=== PATIENT | male | born 1940 | race Caucasian/White ===

== ENCOUNTER 2016-12-21 10:46 | Emergency (ER) | payer OTHER, BC ==
[~2016-12-21] VITALS: Ht 175.3 cm; Wt 107.0 kg
[~2016-12-21 10:46] MED LIST: ASPCH81 PO; ATOR10TA82 PO; CHOL100010 PO; FLUO20CA35 PO; GLUC10007 PO; LEVO50TA6 PO; MULT-190 PO; MULT-506 PO; NAPR1TAB9 PO; ZINC1TAB4 PO
[2016-12-21 10:54] VITALS: Ht 175.3 cm; Wt 107.0 kg
[2016-12-21] MEDS ORDERED: CHOL1000 PO (11:00)
[2016-12-21] MEDS ORDERED: ASPI81CH2 PO (11:00)
--- NOTE | 2016-12-21 11:43 | DIAGNOSTIC IMAGING REPORT ---
LEFT FOREARM 2 VIEWS CLINICAL HISTORY: Recent fall with left arm pain. FINDINGS: AP and lateral views of the left forearm are obtained. No prior studies are available for comparison at the time of dictation. The skeletal structures are osteopenic. No fracture is identified in the left forearm. The wrist and elbow joints are grossly maintained. Enthesophytes arise from the lateral humeral epicondyle. The overlying soft tissues are within normal limits. IMPRESSION: There is no radiographic evidence of left forearm fracture. Electronically signed by: Francisco J Yin M.D. 12/21/2016 11:42 AM Dictated Date/Time: 12/21/2016 11:38 AM
--- NOTE | 2016-12-21 11:44 | DIAGNOSTIC IMAGING REPORT ---
LEFT HUMERUS MIN 2 VIEWS ROUTINE CLINICAL HISTORY: Fall, left distal humerus and forearm pain COMPARISON: None FINDINGS: No acute fracture of the left humerus is identified. There is a possible nondisplaced fracture of the left radial neck. IMPRESSION: 1. No acute fracture of the left humerus. 2. Possible nondisplaced fracture of the left radial neck. Electronically signed by: Rick Cotto M.D. 12/21/2016 11:43 AM Dictated Date/Time: 12/21/2016 11:41 AM
--- NOTE | 2016-12-21 12:00 | EMERGENCY ROOM VISIT NOTE ---
History First contact with patient: 11:04 Chief Complaint: FALL Stated Complaint: LEFT ARM INJURY/PAIN History of Present Illness The patient is a 76 year old male who presents to the Emergency Room via private vehicle with complaints of "left arm injury/pain". The patient states that on , he was walking from outside into his garage, and was wearing transition lenses in the glasses did not transition fast enough and he fell over a elizabeth in the garage, striking his face and left arm. He did not lose consciousness. He notes that his left arm has continued to be sore from the fall. He points to the region of the left elbow as a location of pain that he rates as a 7/10. He denies any chest pain, shortness of breath, fevers, chills , numbness or tingling the left arm, heart history, other areas of pain at this time. Review of Systems A complete 6-point Review of Systems was discussed with the patient, with pertinent positives and negatives listed in the History of Present Illness. All remaining Review of Systems questions can be considered negative unless otherwise specified. Past Medical/Surgical History Medical Problems: (1) BPH (benign prostatic hypertrophy) (2) Calculus of kidney (3) Calculus of ureter (4) HTN (hypertension) Family History Diabetes, heart disease, cancer. Social History Smoking Status: Never Smoker Marital Status: Housing Status: lives with significant other Current/Historical Medications Scheduled Aspirin (Aspirin), 1 TAB PO DAILY Atorvastatin (Lipitor), 10 MG PO HS Cholecalciferol (Vitamin D3), 1 TAB PO DAILY Fluoxetine (Prozac), 20 MG PO HS Glucosamine Sulfate (Glucosamine), 1,000 MG PO QAM Levothyroxine Sodium (Levothyroxine Sodium), 50 MCG PO DAILY Multivitamin (Multivitamin), 1 TAB PO QAM Ocuvite Preservision (Ocuvite Preservision), 1 TAB PO BID Zinc Gluconate (Zinc), 1 TAB PO DAILY Scheduled PRN Naproxen (Aleve), 440 MG PO BID PRN for Pain Allergies Coded Allergies: No Known Allergies (Verified , None, 12/21/16) Physical Exam Vital Signs Date Time Temp Pulse Resp B/P Pulse Ox O2 Delivery O2 Flow Rate FiO2 12/21/16 12:17 36.5 90 20 120/68 96 12/21/16 10:54 36.5 90 20 120/68 96 Room Air Physical Exam VITAL SIGNS - Vital signs and nursing notes were reviewed. He is afebrile, normotensive, non-tachycardic and is saturating well on room air 96%. GENERAL -76-year-old male appearing his stated age who is in no acute distress. Communicates well with provider and answers questions appropriately. SKIN - Without rashes. No breaks in the integument. No ecchymosis. HEAD - NC/AT. EYES - PERRL with EOMI bilaterally. Sclera anicteric. Palpebral conjunctiva pink and moist with no injection noted. EARS - No deformities of external structures noted on gross examination bilaterally. NOSE - Midline and without cyanosis. No epistaxis or purulent drainage noted. MOUTH/OROPHARYNX - Without perioral cyanosis. Buccal mucosa pink and moist and without leukoplakia. NECK - Neck with FROM. Supple to palpation. No C-spine tenderness. No paraspinous musculature tenderness. LUNGS - Chest wall symmetric without accessory muscle use, intercostals retractions, or central cyanosis. Normal vesicular breath sounds CTA B/L. No wheezes, rales, or rhonchi appreciated. CARDIAC - RRR with S1/S2. No murmur, rubs, or gallops appreciated. EXTREMITIES - No clubbing or peripheral cyanosis. No pretibial edema present. He is neurovascularly intact left upper extremity. There is tenderness to palpation overlying the lateral distal humerus, as well as the proximal radius. No wrist tenderness or hand tenderness. There is full cardroom attendant strength. +5/5 strength noted in UE/LE bilaterally. NEUROLOGIC - Cranial nerves II through XII grossly intact. Sensory intact to light touch throughout. PSYCH - Pt is very pleasant and interacts well with examiner. Medical Decision & Procedures ER Provider Diagnostic Interpretation: LEFT FOREARM 2 VIEWS CLINICAL HISTORY: Recent fall with left arm pain. FINDINGS: AP and lateral views of the left forearm are obtained. No prior studies are available for comparison at the time of dictation. The skeletal structures are osteopenic. No fracture is identified in the left forearm. The wrist and elbow joints are grossly maintained. Enthesophytes arise from the lateral humeral epicondyle. The overlying soft tissues are within normal limits. IMPRESSION: There is no radiographic evidence of left forearm fracture. Electronically signed by: Francisco J Yin M.D. 12/21/2016 11:42 AM Dictated Date/Time: 12/21/2016 11:38 AM LEFT HUMERUS MIN 2 VIEWS ROUTINE CLINICAL HISTORY: Fall, left distal humerus and forearm pain COMPARISON: None FINDINGS: No acute fracture of the left humerus is identified. There is a possible nondisplaced fracture of the left radial neck. IMPRESSION: 1. No acute fracture of the left humerus. 2. Possible nondisplaced fracture of the left radial neck. Electronically signed by: Rick Cotto M.D. 12/21/2016 11:43 AM Dictated Date/Time: 12/21/2016 11:41 AM Medical Decision Patient was seen and evaluated as above. After obtaining a thorough history and physical examination radiographs were obtained, he declined pain medication and EKG was also obtained as the patient has left arm pain, that was not severely apparent upon examination. He does not have any cardiac history of which he stated. EKG reveals normal sinus rhythm, no ectopy or ischemic change. No evidence of PA. Radiograph was obtained of the humerus and forearm. Forearm was unremarkable, but the humerus did reveal a proximal, radial neck fracture. This is clinically correlated with the patient's area of tenderness on examination. The case was reviewed with my attending, and she also evaluated the patient. At this time and he believes it appropriate to place the patient in an Ortho-Glass sugar tong, as well as sling for support. Patient tolerated this very well. He is neurovascularly intact. He is a follow -up with his establish orthopedic surgeon by calling their office later today. He declined any pain medication. He was instructed upon management of today's findings. He was educated upon worrisome symptoms which to return, had questions prior to discharge and was discharged home in good condition. IMPRESSION: In the evaluation and treatment of this patient, the following differential diagnoses were considered: Forearm Contusion, Radial Head Fracture , Radial Styloid Process Fracture, Ulnar Styloid Process Fracture, Radius Fracture, Ulnar Fracture, Tennis Elbow, Golfer's Elbow, or Elbow Fracture. Impression Primary Impression: Fracture of radial neck, left, closed Departure Information Dispostion Home / Self-Care Condition GOOD Referrals Parviz Westfall M.D. (PCP) Colby Veras D.O. Patient Instructions My [facility] Additional Instructions You have been treated in the Emergency Department for a left radial neck fracture. For pain control, you can use the following [id number] medicines (if >12 yo): - Regular strength (325mg/tab) Tylenol (acetaminophen) 2 tabs every 4-6 hours as needed. Do not exceed 12 tablets in a 24 hour period. Avoid taking more than 3 grams (3000 mg) of Tylenol per day. This includes any other sources of acetaminophen you may take on a regular basis. - Regular strength (200 mg/tab) Advil (ibuprofen) 1-2 tabs every 4-6 hours as needed. Do not exceed a dose of 3200 mg per day. If this is a recent injury (<24 hrs), ice can be applied to the area of pain for the first 3 days to help decrease pain and inflammation. You have been provided the number for an Orthopaedic Surgeon. You should call this number as soon as possible to establish a follow-up visit from today's Emergency Department visit. Keep the sling/splint in place until evaluated by Orthopedics. Please remember to remove the arm from the sling periodically to exercise the left shoulder. Return to the Emergency Department if your current symptoms worsen despite treatment course outlined above, or if you develop any of the following symptoms : intractable pain despite aforementioned treatment course or new onset of numbness or tingling of the arm. Please return to the emergency department with any new/concerning symptoms.
--- NOTE | 2016-12-21 12:07 | EMERGENCY ROOM VISIT NOTE ---
ED Visit Note First contact with patient: 11:04 I saw this patient in conjunction with John Orozco PA-C. I agree with his decision-making and treatment plan.
[2016-12-21 12:17] VITALS: BP 120/68; PULSE 90; TEMP 36.5; O2SAT 96
[2017-05-21] MEDS ORDERED: MULT-506 PO (10:46)
[2017-05-25] MEDS ORDERED: GLC/500 PO (06:30)
[2017-05-25] MEDS ORDERED: SULF800T23 PO (08:33)
== END 2016-12-21 12:18 | disposition home or self-care (01) ==
LOC: C.EDB 10:48 → C.EDD 12:18
DX: S42.202A Unspecified fracture of upper end of left humerus, initial encounter for closed fracture (principal); W18.09XA Striking against other object with subsequent fall, initial encounter; N40.0 Benign prostatic hyperplasia without lower urinary tract symptoms; I10 Essential (primary) hypertension; Z83.3 Family history of diabetes mellitus; Z82.49 Family history of ischemic heart disease and other diseases of the circulatory system; Z79.82 Long term (current) use of aspirin

== ENCOUNTER 2017-01-11 09:39 | Observation (INO) | payer OTHER, BC ==
[~2017-01-11] VITALS: Ht 175.3 cm; Wt 103.2 kg
[2017-01-11] VITALS (7 sets, daily range): BP systolic 107–126; BP diastolic 63–82; PULSE 72–82; TEMP 36.8–37.1; O2SAT 93–96; Ht 175.3 cm; Wt 103.2 kg
[~2017-01-11 09:39] MED LIST changes: -ASPCH81 PO; +ASPI81CH2 PO; +CHOL1000 PO; -CHOL100010 PO
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
[2017-01-11] MEDS ORDERED: SODIUM CHLORIDE 0.9% 1000ML 1,000 ML IV STA (10:15)
[2017-01-11] MEDS ORDERED: OPTIRAY 320 IV PRN (10:45)
[2017-01-11] MEDS ORDERED: MoRPHine SULFATE 4 MG/ML 1 ML CARP\\VIAL ONE (11:21)
[2017-01-11] MEDS ORDERED: ONDANSETRON INJ 2 MG/ML 2 ML VIAL ONE ×2 (11:22→13:59)
[2017-01-11] MEDS ORDERED: ONDANSETRON INJ 2 MG/ML 2 ML VIAL IV STA (11:22)
[2017-01-11] MEDS ORDERED: MoRPHine SULFATE 4 MG/ML 1 ML CARP\\VIAL IV STA (11:22)
[2017-01-11 11:28] LABS: BASO % 0.1 %; BASO ABS # 0.02 K/uL (0-0.2); COMPLETE YES; EOS % 0.1 %; HEMATOCRIT 45.6 % (42-52); IG% 0.3 %; LYMPH % 11.1 %; LYMPH ABS # 1.77 K/uL (1.2-3.4); MEAN CELL VOLUME 90.5 fL (80-100); MEAN CORPUSCULAR HEMOGLOBIN 32.1 pg (25-34); MEAN CORPUSCULAR HGB CONC 35.5 g/dl (32-36); MEAN PLATELET VOLUME 8.8 fL (7.4-10.4); MONO % 8.8 %; NEUT % 79.6 %; PLATELET COUNT 328 K/uL (130-400); RED BLOOD COUNT 5.04 M/uL (4.7-6.1); WHITE BLOOD COUNT 15.92 K/uL (4.8-10.8)
[2017-01-11 11:31] LABS: ISTAT CREATININE 0.8 mg/dl (0.6-1.3); ISTAT HEMOGLOBIN 17.3 g/dl (14.0-18.0); ISTAT IONIZED CALCIUM 1.16 mmol/l (1.12-1.32)
[2017-01-11 11:45] LABS: BUN/CREATININE RATIO 13.4 (10-20); CALCIUM 8.8 mg/dl (8.5-10.1); CREATININE 0.97 mg/dl (0.60-1.40); POTASSIUM 4.2 mmol/L (3.5-5.1)
--- NOTE | 2017-01-11 12:41 | DIAGNOSTIC IMAGING REPORT ---
PELVIS CT WITH IV CONTRAST CT DOSE: 714.03 mGycm HISTORY: Rectal pain. Cellulitis. TECHNIQUE: Multiaxial CT images of the pelvis were performed following the use of intravenous contrast. COMPARISON STUDY: Abdomen and pelvis CT 03/15/2013. FINDINGS: Skin thickening with subcutaneous edema/fat stranding within the right gluteal region. There is a large predominantly right posterior perirectal abscess containing gas and fluid. A small component of this extends to the left perirectal space. There is also a small component demonstrating right-sided supralevator extension. The supra levator component measures approximately 2 cm. Total size of the abscess is approximately 9 x 7 x 6 cm. Mild thickening of the distal rectum. Mild perirectal fat stranding and trace presacral edema. Colonic diverticulosis. Partially visualized 1.9 cm hypodense lesion within the lower pole the left kidney. This favors a cyst. Prior right inguinal hernia repair. The bladder is unremarkable. The prostate gland is mildly enlarged. No significant pelvic lymphadenopathy. IMPRESSION: A large 9 x 7 x 6 cm predominately right posterior perirectal abscess as described above containing a small supralevator component. Electronically signed by: Darius Quinones M.D. 01/11/2017 12:40 PM Dictated Date/Time: 01/11/2017 12:34 PM
[2017-01-11] MEDS ORDERED: VANCOMYCIN INJ 1,000 MG in SODIUM CHLORIDE 0.9% 250ML 250 ML IV STA (13:07)
[2017-01-11] MEDS ORDERED: PIPERACILLIN/TAZOBACTAM 3.375 GM/100ML D5W IV STA (13:07)
[2017-01-11] MEDS ORDERED: LEVAQUIN 750MG / 150ML D5W IV ONE (13:15)
[2017-01-11] MEDS ORDERED: HYDROmorphone INJ 1 MG/ML SYR IV STA (13:24)
[2017-01-11] MEDS ORDERED: PIPERACILL/TAZOBAC IV 3.375 GM in DEXTROSE 5% 100ML IV ONE (13:30)
[2017-01-11] MEDS ORDERED: CLINDAMYCIN IV 900 MG in DEXTROSE 5% ADD-VANTAGE 100ML 100 ML IV ONE (13:45)
--- NOTE | 2017-01-11 13:51 | History and Physical ---
History & Physical Date & Time of Service: Jan 11, 2017 at 13:44 Chief Complaint: Rectal Pain Primary Care Physician: Parviz Westfall M.D. History of Present Illness 76 y/o male with right buttock pain and a lump began 3 days ago and gotten larger. No fevers or chills. Had perirectal abscess 3 years ago that was misdiagnosed and ended up with extensive debridement for necrotizing fasciitis. Past Medical/Surgical History Medical Problems: (1) BPH (benign prostatic hypertrophy) Status: Chronic (2) Calculus of kidney Status: Resolved (3) Calculus of ureter Status: Resolved (4) HTN (hypertension) Status: Chronic Surgical history: necrotizing fascitis knee scope eye surgery colostomy and reversal for perforation Family History Patient reports no known family medical history. 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[employer]) Allergies Coded Allergies: No Known Allergies (Verified , None, 12/21/16) Home Medications Scheduled Aspirin (Aspirin), 1 TAB PO DAILY Atorvastatin (Lipitor), 10 MG PO HS Cholecalciferol (Vitamin D3), 1 TAB PO DAILY Fluoxetine (Prozac), 20 MG PO HS Glucosamine Sulfate (Glucosamine), 1,000 MG PO QAM Levothyroxine Sodium (Levothyroxine Sodium), 50 MCG PO DAILY Multivitamin (Multivitamin), 1 TAB PO QAM Ocuvite Preservision (Ocuvite Preservision), 1 TAB PO BID Zinc Gluconate (Zinc), 1 TAB PO DAILY Scheduled PRN Naproxen (Aleve), 440 MG PO BID PRN for Pain Review of Systems Constitutional: No fever, No chills Respiratory: No cough, No shortness of breath Cardiovascular: No chest pain Abdomen: No pain, No nausea, No vomiting Physical Exam Vital Signs Date Time Temp Pulse Resp B/P (MAP) Pulse Ox O2 Delivery O2 Flow Rate FiO2 01/11/17 13:32 79 17 127/71 97 01/11/17 12:27 84 20 153/78 95 Room Air 01/11/17 12:10 80 01/11/17 11:31 86 20 143/83 96 01/11/17 11:28 96 Room Air 01/11/17 11:17 81 20 143/77 98 Room Air 01/11/17 09:45 36.3 85 16 123/75 94 Room Air General Appearance: WD/WN, no apparent distress ENT: normal ENT inspection Neck: supple Respiratory/Chest: chest non-tender, lungs clear Cardiovascular: regular rate, rhythm Abdomen/GI: non tender, soft, + pertinent finding (right perianal induration, tenderness, surgical scar) Neurologic/Psych: normal mood/affect, oriented x 3 Skin: normal color, warm/dry Diagnostics Laboratory Results Results Past 24 Hours Test 01/11/17 11:00 01/11/17 11:17 Range/Units White Blood Count 15.92 4.8-10.8 K/uL Red Blood Count 5.04 4.7-6.1 M/uL Hemoglobin 16.2 14.0-18.0 g/dL Hematocrit 45.6 42-52 % Mean Corpuscular Volume 90.5 80-100 fL Mean Corpuscular Hemoglobin 32.1 25-34 pg Mean Corpuscular Hemoglobin Concent 35.5 32-36 g/dl Platelet Count 328 130-400 K/uL Mean Platelet Volume 8.8 7.4-10.4 fL Neutrophils (%) (Auto) 79.6 % Lymphocytes (%) (Auto) 11.1 % Monocytes (%) (Auto) 8.8 % Eosinophils (%) (Auto) 0.1 % Basophils (%) (Auto) 0.1 % Neutrophils # (Auto) 12.67 1.4-6.5 K/uL Lymphocytes # (Auto) 1.77 1.2-3.4 K/uL Monocytes # (Auto) 1.40 0.11-0.59 K/uL Eosinophils # (Auto) 0.02 0-0.5 K/uL Basophils # (Auto) 0.02 0-0.2 K/uL RDW Standard Deviation 42.2 36.4-46.3 fL RDW Coefficient of Variation 12.8 11.5-14.5 % Immature Granulocyte % (Auto) 0.3 % Immature Granulocyte # (Auto) 0.04 0.00-0.02 K/uL Erythrocyte Sedimentation Rate 37 0-14 mm/hr Sodium Level 138 136-145 mmol/L Potassium Level 4.2 3.5-5.1 mmol/L Chloride Level 103 98-107 mmol/L Carbon Dioxide Level 26 21-32 mmol/L Anion Gap 9.0 19.0 16-25 mmol/L Blood Urea Nitrogen 13 7-18 mg/dl Creatinine 0.97 0.60-1.40 mg/dl Est Creatinine Clear Calc Drug Dose 74.3 ml/min Estimated GFR () 86.3 Estimated GFR (Non- 74.5 BUN/Creatinine Ratio 13.4 10-20 Random Glucose 143 70-99 mg/dl Calcium Level 8.8 8.5-10.1 mg/dl C-Reactive Protein 12.00 0-0.29 mg/dl Bedside Hemoglobin 17.3 14.0-18.0 g/dl Bedside Hematocrit 51 42-52 % Bedside Sodium 138 135-144 mEq/L Bedside Potassium 4.3 3.3-5.0 mEq/L Bedside Chloride 99 101-112 mEq/L Bedside Total CO2 26 24-31 mEq/l Bedside Blood Urea Nitrogen 15 7-18 mg/dl Bedside Creatinine 0.8 0.6-1.3 mg/dl Bedside Glucose (other) 149 70-99 mg/dl Bedside Ionized Calcium (Shreya) 1.16 1.12-1.32 mmol/l Microbiology Results 01/11/17 Blood Culture, Received Pending 01/11/17 Blood Culture, Received Pending Diagnostic Radiology PELVIS CT WITH IV CONTRAST CT DOSE: 714.03 mGycm HISTORY: Rectal pain. Cellulitis. TECHNIQUE: Multiaxial CT images of the pelvis were performed following the use of intravenous contrast. COMPARISON STUDY: Abdomen and pelvis CT 03/15/2013. FINDINGS: Skin thickening with subcutaneous edema/fat stranding within the right gluteal region. There is a large predominantly right posterior perirectal abscess containing gas and fluid. A small component of this extends to the left perirectal space. There is also a small component demonstrating right-sided supralevator extension. The supra levator component measures approximately 2 cm. Total size of the abscess is approximately 9 x 7 x 6 cm. Mild thickening of the distal rectum. Mild perirectal fat stranding and trace presacral edema. Colonic diverticulosis. Partially visualized 1.9 cm hypodense lesion within the lower pole the left kidney. This favors a cyst. Prior right inguinal hernia repair. The bladder is unremarkable. The prostate gland is mildly enlarged. No significant pelvic lymphadenopathy. IMPRESSION: A large 9 x 7 x 6 cm predominately right posterior perirectal abscess as described above containing a small supralevator component. Electronically signed by: Darius Quinones M.D. 01/11/2017 12:40 PM Dictated Date/Time: 01/11/2017 12:34 PM Impression Assessment and Plan perirectal abscess Was given antibiotics in the ED. Will plan for I&D of perirectal abscess this afternoon when ok with anesthesia. He had a cup of coffee around 8:30.
[2017-01-11] MEDS ORDERED: LIDOCAINE HCL 2% 2 ML VIAL (20MG/ML) ONE (13:59)
[2017-01-11] MEDS ORDERED: PROPOFOL IV EMULSION 10 MG/ML 20 ML VIAL IV ONE ×2 (13:59→15:19)
[2017-01-11] MEDS ORDERED: MIDAZOLAM HCL 1 MG/ML 2ML VIAL ONE (13:59)
[2017-01-11] MEDS ORDERED: FENTANYL CITRATE INJ 50 MCG/1 ML 2 ML VIAL ONE (13:59)
--- NOTE | 2017-01-11 14:10 | EMERGENCY ROOM VISIT NOTE ---
ED Visit Note First contact with patient: 09:50 Resident Physician Supervision Note: I interviewed and examined the patient. Discussed with Dr. Mahoney and agree with findings and plan as documented in the note. Documented By: Asher Dunn
--- NOTE | 2017-01-11 14:15 | DIAGNOSTIC IMAGING REPORT ---
CHEST ONE VIEW PORTABLE CLINICAL HISTORY: Preop chest COMPARISON STUDY: 07/21/2016 FINDINGS: The cardiac and mediastinal contours are normal. There is no evidence of focal pulmonary consolidation. There is no evidence of failure. No pleural effusions are visualized.[ There is stable linear left basilar atelectasis/scarring. IMPRESSION: No active disease in the chest. Electronically signed by: Jason Brian M.D. 01/11/2017 2:13 PM Dictated Date/Time: 01/11/2017 2:12 PM
[2017-01-11] MEDS ORDERED: NURSING VERBAL MED ORDER ONE (14:45)
[2017-01-11] MEDS ORDERED: METOCLOPRAMIDE HCL INJ 5 MG/ML 2 ML VIAL ONE (15:13)
[2017-01-11] MEDS ORDERED: EpHEDrine SULFATE INJ 50 MG/ML AMP IV PRN (15:15)
[2017-01-11] MEDS ORDERED: MEPERIDINE HCL 25 MG/ML CARP IV PRN (15:15)
[2017-01-11] MEDS ORDERED: NALOXONE HCL 0.4 MG/1 ML VIAL/CARP IV PRN (15:15)
[2017-01-11] MEDS ORDERED: ONDANSETRON INJ 2 MG/ML 2 ML VIAL IV PRN ×2 (15:15→15:30)
[2017-01-11] MEDS ORDERED: HYDROmorphone INJ 2 MG/ML SYR/VIAL IV PRN (15:15)
[2017-01-11] MEDS ORDERED: LABETALOL HCL IV 5 MG/ML 20ML IV PRN (15:15)
[2017-01-11] MEDS ORDERED: FENTANYL CITRATE INJ 50 MCG/1 ML 2 ML VIAL IV PRN (15:15)
[2017-01-11] MEDS ORDERED: FLUMAZENIL 0.1 MG/1 ML 10 ML VIAL IV PRN (15:15)
[2017-01-11] MEDS ORDERED: ATROPINE SULFATE 0.1 MG/ML 5ML SYR IV PRN (15:15)
[2017-01-11] MEDS ORDERED: PHENYLEPHRINE 100MCG/ML 5ML SYR IV PRN (15:15)
[2017-01-11] MEDS ORDERED: MoRPHine SULFATE 4 MG/ML 1 ML CARP\\VIAL IV PRN (15:30)
[2017-01-11] MEDS ORDERED: HYDROCODONE/ACETAMOPHEN 5/325MG TAB PO PRN (15:30)
--- NOTE | 2017-01-11 15:41 | [facility] Operative Report ---
Operative Report Operative Date Jan 11, 2017. Pre-Operative Diagnosis olya-rectal abscess Post-Operative Diagnosis same Procedure(s) Performed I & D of olya-rectal abcess Surgeon Dr. Cortez Estimated Blood Loss 20ml Findings very large/foul smelling abcess in right ischialrectal fossa Specimens #1. culture of olya-rectal abscess for C&S, aerobic, anaerobic, gram stain ( sent at 1525) Anesthesia LMA Complication(s) None Disposition Recovery Room / PACU I attest to the content of the Intraoperative Record and any orders documented therein. Any exceptions are noted below.
[2017-01-11] MEDS ORDERED: IV FLUIDS COMPLETED PRN (15:45)
[2017-01-11] MEDS ORDERED: PIPERACILL/TAZOBAC CONSULT ACTIVE PRN (16:00)
--- NOTE | 2017-01-11 16:04 | Anesthesiology Progress Note ---
Anesthesia Post Op Note Date & Time Jan 11, 2017 at 16:04 Vital Signs Pain Intensity: 0 Vital Signs Past 12 Hours Date Time Temp Pulse Resp B/P (MAP) Pulse Ox O2 Delivery O2 Flow Rate FiO2 01/11/17 15:54 77 15 01/11/17 15:54 77 15 01/11/17 15:54 77 15 98 01/11/17 15:54 77 15 98 01/11/17 15:51 132/82 01/11/17 15:51 132/82 01/11/17 15:49 76 14 01/11/17 15:49 75 14 98 01/11/17 15:49 76 14 01/11/17 15:49 75 14 98 01/11/17 15:46 132/69 01/11/17 15:46 132/69 01/11/17 15:44 80 19 96 01/11/17 15:44 80 19 01/11/17 15:44 80 19 96 01/11/17 15:44 80 19 01/11/17 15:41 115/68 01/11/17 15:41 115/68 01/11/17 15:40 115/67 01/11/17 15:40 115/67 01/11/17 15:39 36.5 75 14 115/67 97 Mask 10 01/11/17 14:13 88 20 104/56 96 01/11/17 13:32 79 17 127/71 97 01/11/17 12:27 84 20 153/78 95 Room Air 01/11/17 12:10 80 01/11/17 11:31 86 20 143/83 96 01/11/17 11:28 96 Room Air 01/11/17 11:17 81 20 143/77 98 Room Air 01/11/17 09:45 36.3 85 16 123/75 94 Room Air Notes Mental Status: alert / awake / arousable, participated in evaluation Pt Amnestic to Procedure: Yes Nausea / Vomiting: adequately controlled Pain: adequately controlled Airway Patency, RR, SpO2: stable & adequate BP & HR: stable & adequate Hydration State: stable & adequate Anesthetic Complications: no major complications apparent
--- NOTE | 2017-01-11 16:52 | OPERATIVE REPORT ---
DATE OF OPERATION: 01/11/2017 PREOPERATIVE DIAGNOSIS: Perirectal abscess. POSTOPERATIVE DIAGNOSIS: Same. PROCEDURE: I&D of large perirectal abscess. SURGEON: Dr. Cortez. ESTIMATED BLOOD LOSS: Approximately 20 mL. COMPLICATIONS: No immediate. ANESTHESIA: General with laryngeal mask airway. DESCRIPTION OF PROCEDURE: After informed consent was obtained, the patient was taken to the operating suite, placed in supine position. After successful intubation, the patient was placed on a high lithotomy position with Yellofin stirrups. The rectal area was sterilely prepped and draped in usual fashion. With a 15 blade scalpel, I made a linear incision directly over the palpable abscess. In a relatively superficial space, I had a very large foul smelling abscess. We drained probably 200 mL of very foul smelling whitish-rouse pus. The cavity itself with digital inspection was extremely large and went superiorly farther than my finger could reach. We did thoroughly irrigate the wound. I then packed it with half inch iodoform packing. Sterile dressing was applied. Some of the specimen was sent to the lab for Gram stain, culture and sensitivity. The patient was then awakened, extubated, and transferred to recovery in stable condition. I attest to the content of the Intraoperative Record and any orders documented therein. Any exception s are noted below.
[2017-01-11] MEDS: LACTATED RINGER'S 1000ML 1,000 ML IV SCH (18:20)
[2017-01-11] MEDS: PIPERACILL/TAZOBAC IV 3.375 GM in DEXTROSE 5% 100ML 100 ML IV SCH (20:23)
[2017-01-11] MEDS ORDERED: FLUOXETINE HCL 20 MG CAP PO SCH (21:00)
[2017-01-12] MEDS: PIPERACILL/TAZOBAC IV 3.375 GM in DEXTROSE 5% 100ML 100 ML IV SCH ×2 (03:49→12:10)
[2017-01-12] MEDS: LACTATED RINGER'S 1000ML 1,000 ML IV SCH (03:50)
[2017-01-12 04:05] VITALS: BP 100/64; PULSE 63; TEMP 36.6; O2SAT 94
[2017-01-12] MEDS ORDERED: LEVOTHYROXINE 50 MCG TAB PO SCH (06:00)
[2017-01-12 06:17] LABS: BASO % 0.2 %; BASO ABS # 0.02 K/uL (0-0.2); COMPLETE YES; EOS % 1.7 %; HEMATOCRIT 38.7 % (42-52); IG% 0.2 %; LYMPH % 17.7 %; LYMPH ABS # 1.79 K/uL (1.2-3.4); MEAN CELL VOLUME 92.1 fL (80-100); MEAN CORPUSCULAR HEMOGLOBIN 31.9 pg (25-34); MEAN CORPUSCULAR HGB CONC 34.6 g/dl (32-36); MONO % 10.1 %; NEUT % 70.1 %; PLATELET COUNT 261 K/uL (130-400)
[2017-01-12 06:51] LABS: CREATININE 0.74 mg/dl (0.60-1.40)
--- NOTE | 2017-01-12 07:43 | Surgery Progress Note ---
Surgery Progress Note Date of Service Jan 12, 2017. Subjective Post OP Day: 1 + feeling well, + pain controlled, + diet (regular), No nausea Objective Vital Signs: Date Time Temp Pulse Resp B/P (MAP) Pulse Ox O2 Delivery O2 Flow Rate FiO2 01/12/17 04:05 36.6 63 18 100/64 (76) 94 Room Air 01/11/17 23:40 Room Air 01/11/17 23:20 37.1 72 16 107/63 (78) 93 Room Air 01/11/17 20:15 36.9 82 18 108/70 (83) 95 Nasal Cannula 2.0 01/11/17 19:15 36.9 78 16 126/82 (97) 96 Nasal Cannula 2.0 01/11/17 18:15 36.8 73 16 113/73 (86) 96 Nasal Cannula 2.0 01/11/17 17:57 Nasal Cannula 2.0 01/11/17 17:47 36.9 74 18 111/71 (84) 96 Nasal Cannula 3.0 01/11/17 17:17 36.8 75 16 107/69 (82) 95 Nasal Cannula 2.0 01/11/17 17:15 95 Nasal Cannula 2.0 01/11/17 16:57 76 10 01/11/17 16:57 76 10 95 01/11/17 16:56 129/69 01/11/17 16:52 80 15 95 01/11/17 16:52 75 15 01/11/17 16:51 120/72 01/11/17 16:47 75 17 01/11/17 16:47 75 17 95 01/11/17 16:46 116/70 01/11/17 16:42 77 17 95 01/11/17 16:42 77 17 01/11/17 16:41 116/65 01/11/17 16:37 80 17 93 01/11/17 16:37 79 17 01/11/17 16:36 119/71 01/11/17 16:32 78 20 95 01/11/17 16:32 77 20 01/11/17 16:31 124/70 01/11/17 16:27 78 15 01/11/17 16:27 78 15 92 01/11/17 16:26 119/60 01/11/17 16:22 79 14 01/11/17 16:22 79 14 94 01/11/17 16:21 124/74 01/11/17 16:17 77 14 95 01/11/17 16:17 77 14 01/11/17 16:16 124/71 01/11/17 16:12 76 15 95 01/11/17 16:12 76 15 01/11/17 16:11 133/73 01/11/17 16:10 76 16 96 01/11/17 16:10 76 16 01/11/17 16:06 131/77 01/11/17 16:05 77 15 01/11/17 16:05 77 15 97 01/11/17 16:02 37.2 75 17 131/77 95 Nasal Cannula 2 01/11/17 16:01 136/82 01/11/17 16:00 79 18 01/11/17 16:00 80 18 96 01/11/17 15:56 141/81 01/11/17 15:55 76 15 97 01/11/17 15:55 76 15 01/11/17 15:54 77 15 01/11/17 15:54 77 15 01/11/17 15:54 77 15 98 01/11/17 15:54 77 15 98 01/11/17 15:51 132/82 01/11/17 15:51 132/82 01/11/17 15:49 76 14 01/11/17 15:49 75 14 98 01/11/17 15:49 76 14 01/11/17 15:49 75 14 98 01/11/17 15:46 132/69 01/11/17 15:46 132/69 01/11/17 15:44 80 19 96 01/11/17 15:44 80 19 01/11/17 15:44 80 19 96 01/11/17 15:44 80 19 01/11/17 15:41 115/68 01/11/17 15:41 115/68 01/11/17 15:40 115/67 01/11/17 15:40 115/67 01/11/17 15:39 36.5 75 14 115/67 97 Mask 10 01/11/17 14:13 88 20 104/56 96 01/11/17 13:32 79 17 127/71 97 01/11/17 12:27 84 20 153/78 95 Room Air 01/11/17 12:10 80 01/11/17 11:31 86 20 143/83 96 01/11/17 11:28 96 Room Air 01/11/17 11:17 81 20 143/77 98 Room Air 01/11/17 09:45 36.3 85 16 123/75 94 Room Air Incision(s): findings (erythema resolving, packing intact, no induration) Laboratory Results: Results Past 24 Hours Test 01/11/17 11:00 01/11/17 11:17 01/12/17 05:43 Range/Units White Blood Count 15.92 10.10 4.8-10.8 K/uL Red Blood Count 5.04 4.20 4.7-6.1 M/uL Hemoglobin 16.2 13.4 14.0-18.0 g/dL Hematocrit 45.6 38.7 42-52 % Mean Corpuscular Volume 90.5 92.1 80-100 fL Mean Corpuscular Hemoglobin 32.1 31.9 25-34 pg Mean Corpuscular Hemoglobin Concent 35.5 34.6 32-36 g/dl Platelet Count 328 261 130-400 K/uL Mean Platelet Volume 8.8 9.0 7.4-10.4 fL Neutrophils (%) (Auto) 79.6 70.1 % Lymphocytes (%) (Auto) 11.1 17.7 % Monocytes (%) (Auto) 8.8 10.1 % Eosinophils (%) (Auto) 0.1 1.7 % Basophils (%) (Auto) 0.1 0.2 % Neutrophils # (Auto) 12.67 7.08 1.4-6.5 K/uL Lymphocytes # (Auto) 1.77 1.79 1.2-3.4 K/uL Monocytes # (Auto) 1.40 1.02 0.11-0.59 K/uL Eosinophils # (Auto) 0.02 0.17 0-0.5 K/uL Basophils # (Auto) 0.02 0.02 0-0.2 K/uL RDW Standard Deviation 42.2 43.5 36.4-46.3 fL RDW Coefficient of Variation 12.8 12.9 11.5-14.5 % Immature Granulocyte % (Auto) 0.3 0.2 % Immature Granulocyte # (Auto) 0.04 0.02 0.00-0.02 K/uL Erythrocyte Sedimentation Rate 37 0-14 mm/hr Sodium Level 138 136-145 mmol/L Potassium Level 4.2 3.5-5.1 mmol/L Chloride Level 103 98-107 mmol/L Carbon Dioxide Level 26 21-32 mmol/L Anion Gap 9.0 19.0 16-25 mmol/L Blood Urea Nitrogen 13 7-18 mg/dl Creatinine 0.97 0.74 0.60-1.40 mg/dl Est Creatinine Clear Calc Drug Dose 74.3 97.4 ml/min Estimated GFR () 86.3 102.4 Estimated GFR (Non- 74.5 88.3 BUN/Creatinine Ratio 13.4 10-20 Random Glucose 143 70-99 mg/dl Calcium Level 8.8 8.5-10.1 mg/dl C-Reactive Protein 12.00 0-0.29 mg/dl Bedside Hemoglobin 17.3 14.0-18.0 g/dl Bedside Hematocrit 51 42-52 % Bedside Sodium 138 135-144 mEq/L Bedside Potassium 4.3 3.3-5.0 mEq/L Bedside Chloride 99 101-112 mEq/L Bedside Total CO2 26 24-31 mEq/l Bedside Blood Urea Nitrogen 15 7-18 mg/dl Bedside Creatinine 0.8 0.6-1.3 mg/dl Bedside Glucose (other) 149 70-99 mg/dl Bedside Ionized Calcium (Shreya) 1.16 1.12-1.32 mmol/l Microbiology Results 01/11/17 Blood Culture, Received Pending 01/11/17 Blood Culture, Received Pending Assessment & Plan s/p I&D perirectal abscess change packing, will set up home nursing likely home today on po abx, prelim cx pending
[2017-01-12 08:13] VITALS: O2SAT 93
[2017-01-12 08:14] VITALS: BP 106/68; PULSE 62; TEMP 36.7; O2SAT 93
[2017-01-12] MEDS ORDERED: AMOX875T PO (08:48)
[2017-01-12] MEDS ORDERED: METR-163 PO (08:48)
[2017-01-12] MEDS ORDERED: OXYC-57 PO (08:48)
--- NOTE | 2017-01-12 08:50 | Discharge Instructions ---
Discharge Instructions Date of Service Jan 12, 2017. Admission Reason for Admission: Perirectal Abscess Discharge Discharge Diagnosis / Problem: incision and drainage of abscess Discharge Goals Goal(s): Decrease discomfort Activity Recommendations Activity Limitations: as noted below Shower/Bathe: no limitations (ok to shower) . Instructions / Follow-Up Instructions / Follow-Up Dr. Cortez in 7-10 dyas, call [phone] to schedule or with any concerns, [address] Current Hospital Diet Patient's current hospital diet: Regular Diet Discharge Diet Recommended Diet: Regular Diet Procedures Procedures Performed: incision and drainage of olya-rectal abscess Pending Studies Studies pending at discharge: yes List of pending studies: culture results Medical Emergencies . Who to Call and When: Medical Emergencies: If at any time you feel your situation is an emergency, please call 911 immediately. . Non-Emergent Contact Non-Emergency issues call your: Surgeon Call Non-Emergent contact if: you have a fever, temperature is above 101.5, your pain is not controlled, wound has increased drainage, wound has increased redness, wound has increased pain, you have any medication questions . "Provider Documentation" section prepared by Kelechi Gallagher. . VTE Core Measure Inpt VTE Proph given/why not?: SCD's [place] Drug Monitoring Program Search Results: no issues identified
[2017-01-12] MEDS ORDERED: NURSING VERBAL MED ORDER ONE (09:15)
[2017-01-12 09:30] VITALS: BP 155/79
[2017-01-12 11:26] VITALS: BP 106/68; PULSE 60; TEMP 36.9; O2SAT 93
[2017-01-12 14:00] VITALS: BP 106/68; PULSE 60; TEMP 36.9; O2SAT 93
--- NOTE | 2017-01-12 14:14 | DISCHARGE SUMMARY ---
PRIMARY DISCHARGE DIAGNOSIS: Perirectal abscess. SECONDARY DISCHARGE DIAGNOSES: 1. Benign prostatic hypertrophy. 2. Hypertension. 3. History of necrotizing fasciitis. PROCEDURE PERFORMED: I&D of large perirectal abscess. HOSPITAL COURSE: The patient is a 76-year-old male who presented to the Emergency Department with 3 days history of rectal pain. His white count was 15,000. CT showed a 9 cm right posterior perirectal abscess. He was taken to the operating room that afternoon for incision and drainage. The wound was packed with quarter inch packing. He was transferred to the surgical floor, kept on IV Zosyn throughout admission. The next day, he was feeling much better and the perianal area was much improved. Induration is essentially resolved. His white count was 10,000. Preliminary cultures show an E. coli and a Gram-positive cocci. He was tolerating diet and oral analgesics. He was stable for discharge home with home health for dressing changes and oral antibiotics. DISCHARGE INSTRUCTIONS: Discharge home. Follow up with Dr. Cortez in 1 week. Will have home health for daily packing changes. DISCHARGE MEDICATIONS: Augmentin 875 mg p.o. b.i.d. x10 days, Flagyl 500 mg p.o. t.i.d. and Percocet 1-2 tablets every 4 hours as needed. Continue home medications aspirin 81 mg daily, Lipitor 10 mg daily, vitamin D 1000 units daily, Prozac 20 mg daily, glucosamine 1000 mg daily, levothyroxine 50 mcg daily, daily multivitamin, Aleve 2 tablets as needed twice daily.
[2017-05-21] MEDS ORDERED: MULT-506 PO (10:46)
[2017-05-25] MEDS ORDERED: GLC/500 PO (06:30)
[2017-05-25] MEDS ORDERED: SULF800T23 PO (08:33)
== END 2017-01-12 15:00 | disposition home or self-care (01) ==
LOC: C.EDB 09:40 → C.MSW 15:24 → ENRESERV 16:43
PROVIDERS: ADMIT Surgery; ATTEND Surgery
DX: K61.1 Rectal abscess (principal); N40.0 Benign prostatic hyperplasia without lower urinary tract symptoms; I10 Essential (primary) hypertension; Z79.82 Long term (current) use of aspirin; E66.9 Obesity, unspecified; Z68.34 Body mass index [BMI] 34.0-34.9, adult

== ENCOUNTER → 2017-02-03 | Outpatient (CLI) | payer OTHER, BC ==
[~2017-02-03] MED LIST changes: -ATOR10TA82 PO; +ATOR10TA88 PO; +METR-163 PO; +OXYC-57 PO
[2017-02-03 13:26] LABS: BASO % 0.3 %; BASO ABS # 0.03 K/uL (0-0.2); COMPLETE YES; EOS % 1.6 %; HEMATOCRIT 44.7 % (42-52); IG% 0.2 %; LYMPH % 32.1 %; LYMPH ABS # 2.86 K/uL (1.2-3.4); MEAN CELL VOLUME 92.2 fL (80-100); MEAN CORPUSCULAR HEMOGLOBIN 31.8 pg (25-34); MEAN CORPUSCULAR HGB CONC 34.5 g/dl (32-36); MEAN PLATELET VOLUME 9.8 fL (7.4-10.4); MONO % 7.9 %; NEUT % 57.9 %; PLATELET COUNT 349 K/uL (130-400); RED BLOOD COUNT 4.85 M/uL (4.7-6.1); WHITE BLOOD COUNT 8.91 K/uL (4.8-10.8)
[2017-02-03 14:02] LABS: ESTIMATED AVERAGE GLUCOSE 137 mg/dl; HA1C FLAG Normal (Normal)
[2017-02-03 14:32] LABS: ALT/SGPT 27 U/L (12-78); AST/SGOT 18 U/L (15-37); BLOOD UREA NITROGEN 17 mg/dl (7-18); BUN/CREATININE RATIO 20.5 (10-20); CALCIUM 8.5 mg/dl (8.5-10.1); CARBON DIOXIDE 24 mmol/L (21-32); CHLORIDE 108 mmol/L (98-107); CHOLESTEROL 154 mg/dl (0-200); CREATININE 0.81 mg/dl (0.60-1.40); GLUCOSE 129 mg/dl (70-99); SODIUM 139 mmol/L (136-145); TRIGLYCERIDES 254 mg/dl (0-150); VERY LOW DENSITY LIPOPROT CALC 51 mg/dl
[2017-02-03 14:41] LABS: ALB/GLOB RATIO 1.5 (0.9-2); ALKALINE PHOSPHATASE 73 U/L (45-117); CHOLESTEROL/HDL RATIO 4.4; FERRITIN 52.9 ng/ml (8.0-388.0); HDL CHOLESTEROL 35 mg/dl; LDL CHOLESTEROL CALCULATED 68 mg/dl; TOTAL IRON BINDING CAPACITY 271 mcg/dl (250-450)
[2017-02-05 07:06] LABS: 18KDIGG BAND NONREACTIVE (NONREACTIVE); 23KDIGG BAND NONREACTIVE (NONREACTIVE); 23KDIGM BAND NONREACTIVE (NONREACTIVE); 28KDIGG BAND NONREACTIVE (NONREACTIVE); 30KDIGG BAND NONREACTIVE (NONREACTIVE); 39KDIGG BAND NONREACTIVE (NONREACTIVE); 39KDIGM BAND NONREACTIVE (NONREACTIVE); 41KDIGG BAND REACTIVE (NONREACTIVE); 41KDIGM BAND NONREACTIVE (NONREACTIVE); 45KDIGG BAND NONREACTIVE (NONREACTIVE); 58KDIGG BAND NONREACTIVE (NONREACTIVE); 66KDIGG BAND NONREACTIVE (NONREACTIVE); 93KDIGG BAND NONREACTIVE (NONREACTIVE); GLIADIN DEAMIDATED IgA AB 3 UNITS (<20); GLIADIN DEAMIDATED IgG AB 3 UNITS (<20)
--- NOTE | 2017-02-08 13:15 | CODING QUERY MEDICAL NECESSITY ---
SUPPORTING DIAGNOSIS NEEDED Dr. Westfall, A supporting diagnosis is required for the test/procedure performed on this patient in order for us to be reimbursed by the patient's insurance. Please provide a supporting diagnosis for the following test/procedure listed below next to the test name along with your signature. *If there is no additional diagnosis for this patient that would support the following test/procedure please document that below next to the test/procedure. Test(s)/Procedure(s) that require a supporting diagnosis: * ([id number]) B12 VITAMIN LEVEL DIAGNOSIS: DATE OF SERVICE: 02/03/17 Provider Signature: Date: Thank you Kelechi De La Rosa [facility] Information Management Once completed, please kindly fax back to [phone] For questions please call [phone]
== END | disposition home or self-care (01) ==
LOC: C.LABBC 10:08
PROVIDERS: ATTEND Family Medicine
DX: R53.83 Other fatigue (principal); M25.50 Pain in unspecified joint; R73.09 Other abnormal glucose; D51.9 Vitamin B12 deficiency anemia, unspecified

== ENCOUNTER → 2017-05-18 | Outpatient (CLI) | payer OTHER, BC ==
[2017-05-18 16:54] LABS: BASO % 0.4 %; BASO ABS # 0.04 K/uL (0-0.2); COMPLETE YES; EOS % 0.7 %; HEMATOCRIT 44.5 % (42-52); IG% 0.1 %; LYMPH % 25.8 %; LYMPH ABS # 2.51 K/uL (1.2-3.4); MEAN CELL VOLUME 90.8 fL (80-100); MEAN CORPUSCULAR HGB CONC 35.3 g/dl (32-36); MEAN PLATELET VOLUME 9.3 fL (7.4-10.4); MONO % 8.1 %; NEUT % 64.9 %; PLATELET COUNT 332 K/uL (130-400); WHITE BLOOD COUNT 9.74 K/uL (4.8-10.8)
[2017-05-18 17:04] LABS: BLOOD UREA NITROGEN 18 mg/dl (7-18); BUN/CREATININE RATIO 20.9 (10-20); CALCIUM 9.2 mg/dl (8.5-10.1); CARBON DIOXIDE 26 mmol/L (21-32); CHLORIDE 107 mmol/L (98-107); CREATININE 0.86 mg/dl (0.60-1.40); GLUCOSE 115 mg/dl (70-99); POTASSIUM 4.2 mmol/L (3.5-5.1); SODIUM 140 mmol/L (136-145)
== END | disposition home or self-care (01) ==
LOC: C.LABBC 15:00
PROVIDERS: ATTEND Surgery
DX: K61.1 Rectal abscess (principal)

== ENCOUNTER → 2017-05-25 | Day surgery (SDC) | payer OTHER, BC ==
[2017-05-21 10:47] VITALS: Ht 175.3 cm; Wt 96.8 kg
[~2017-05-25] VITALS: Ht 175.3 cm; Wt 96.8 kg
[~2017-05-25] MED LIST changes: +ATROPINE SULFATE 0.1 MG/ML 5ML SYR IV PRN; +BENZOIN SPRAY 118 ML BTL TOP ONE; +BUPIVACAINE/EPINEPHRINE 0.25% 1:200,000 30 ML VIAL ONE; +CEFAZOLIN 2000MG IV PUSH 10 ML IV SCH; +DEXAMETHASONE SOD INJ 4 MG/ML VIAL ONE; +EpHEDrine SULFATE 50MG/5ML SYR ONE; +EpHEDrine SULFATE INJ 50 MG/ML AMP IV PRN; +FENTANYL CITRATE INJ 50 MCG/1 ML 2 ML VIAL IV PRN; +FENTANYL CITRATE INJ 50 MCG/1 ML 2 ML VIAL ONE; +GLC/500 PO; +LACTATED RINGER'S 1000ML 1,000 ML IV SCH; +LIDOCAINE HCL 2% 2 ML VIAL (20MG/ML) ONE; +METHYLENE BLUE 0.5% 10 ML VIAL ONE; -METR-163 PO; +MIDAZOLAM HCL 1 MG/ML 2ML VIAL ONE; +ONDANSETRON INJ 2 MG/ML 2 ML VIAL IV PRN; +ONDANSETRON INJ 2 MG/ML 2 ML VIAL ONE; -OXYC-57 PO; +PROPOFOL IV EMULSION 10 MG/ML 20 ML VIAL IV ONE; +SODIUM CHLORIDE 0.9% 1000ML 1,000 ML IV SCH; +SUCCINYLCHOLINE CHLORIDE 20 MG/ML 10 ML VIAL IV ONE; +SULF800T23 PO; +SULFAMETHOXAZOLE/TRIMETHOPRIM 400/80MG TAB PO SCH
--- NOTE | 2017-05-25 06:49 | History & Physical Bridge Note ---
H&P Re-Evaluation Bridge Note: I have examined the patient, reviewed the History & Physical and in the interval since the performance of the History & Physical I have noted the following changes of clinical significance: No changes noted
--- NOTE | 2017-05-25 08:24 | Discharge Instructions ---
Discharge Instructions Date of Service May 25, 2017. Admission Reason for Admission: Perirectal Abscess Discharge Discharge Diagnosis / Problem: recurrent olya-rectal abcess Discharge Goals Goal(s): Decrease discomfort, Prevent Disease Progression Activity Recommendations Activity Limitations: as noted below Lifting Limitations: no more than 10 pounds Exercise/Sports Limitations: rest today, until after follow-up appointment May Resume Sexual Activity: after follow-up appointment Shower/Bathe: no limitations Driving or Machine Use: When no longer taking pain medications . Instructions / Follow-Up Instructions / Follow-Up follow up scheduled. Call [phone] with any questions/concerns. Patient will be contacted by our office to coordinate dressing changes and wound care. Current Hospital Diet Patient's current hospital diet: Discharge Diet Recommended Diet: Regular Diet (advance as tolerated.) Fluid Restriction: None Pending Studies Studies pending at discharge: yes (Pathology) List of pending studies: Pathology Medical Emergencies . Who to Call and When: Medical Emergencies: If at any time you feel your situation is an emergency, please call 911 immediately. . Non-Emergent Contact Non-Emergency issues call your: Primary Care Provider, Surgeon Call Non-Emergent contact if: temperature is above 101.5, your pain is not controlled, your pain is worsening, wound has increased drainage, wound has increased redness . "Provider Documentation" section prepared by Wilman Cortez. . VTE Core Measure Inpt VTE Proph given/why not?: Eduardo Khan [place] Drug Monitoring Program Drug Monitoring Findings: Patient does not require pain medication
[2017-05-25 08:56] VITALS: TEMP 36.2
--- NOTE | 2017-05-25 08:59 | [facility] Operative Report ---
Operative Report Operative Date May 25, 2017. Pre-Operative Diagnosis Perirectal Abscess Post-Operative Diagnosis Same with chronic soft tissue cyst/fistula Procedure(s) Performed Rectal Exam Under Anesthesia, drainage of abcess, excision of soft tissue cyst, fistulotomy Surgeon Dr Cortez [employer]er Surgeon(s) Chaim Navarro PA-C Estimated Blood Loss 10ML Findings abcess with chronic soft tissue cyst/fistula Specimens A: Perirectal Soft Tissue Cyst Anesthesia get Complication(s) None Disposition Recovery Room / PACU Description of Procedure After informed consent was obtained the patient was taken to the operating room and placed in a supine position. After successful intubation the patient was rolled into a prone jackknife position. Benzoin and silk tape were used to spread the buttocks apart. The rectal area was sterilely prepped and draped in usual fashion. I Began by visual inspection with an anoscope. There was an obvious area of abscess with small amount of purulent fluid draining from a small pinhole in the skin on the right lateral side of the buttock several inches away from the rectum itself. I performed anoscopy I did not see any internal evidence of a fistulous tract. I saw no inflammation or other gross abnormality. I then probed the small pinhole opening and I was able to identify fistulous tract. I used a blunt tipped catheter and injected methylene blue dye to try and see if there were was any evidence of a rectal tract by identifying blue dye within the rectum. This was a negative test. I then opened the area of abscess and obtained a small amount of purulent fluid. I continued to follow what would be a fistulous track superiorly toward the sacrum rather than towards the rectum. I encountered a cavity that was lined with epithelial-like tissue indicating a chronic cyst/infection. I opened this fistulous tract using electrocautery. I then excised all abnormal appearing tissue that had the epithelial mucous type of look to it. Once I had all fresh tissue with good blood supply we then thoroughly irrigated the wound. Again I continued to look for any evidence of additional fistulous tracts towards the rectum and was unable to identify this. I then packed the wound with half inch plain packing. A sterile dressing was applied. The patient was rolled over extubated and transferred recovery in stable condition I attest to the content of the Intraoperative Record and any orders documented therein. Any exceptions are noted below.
[2017-05-25 09:31] VITALS: BP 114/71; PULSE 66; O2SAT 94
--- NOTE | 2017-05-25 09:41 | Anesthesia Progress Nt - [facility] ---
Anesthesia Post Op Note Date & Time May 25, 2017 at 09:40 Vital Signs Vital Signs Past 12 Hours Date Time Temp Pulse Resp B/P (MAP) Pulse Ox O2 Delivery O2 Flow Rate FiO2 05/25/17 09:31 66 16 114/71 (85) 94 Room Air 05/25/17 08:56 36.2 68 16 111/72 (85) 96 Room Air 05/25/17 08:43 75 10 93 05/25/17 08:43 76 10 05/25/17 08:42 36.5 73 12 112/64 94 Room Air 05/25/17 08:41 112/64 05/25/17 08:38 78 12 05/25/17 08:38 78 12 91 05/25/17 08:36 108/61 05/25/17 08:34 112/64 05/25/17 08:33 80 12 91 05/25/17 08:33 80 12 05/25/17 08:32 05/25/17 08:28 82 3 05/25/17 08:28 82 3 97 05/25/17 08:26 118/64 05/25/17 08:23 86 15 95 05/25/17 08:23 86 15 05/25/17 08:21 119/69 05/25/17 08:18 90 05/25/17 08:18 90 93 05/25/17 08:16 128/70 05/25/17 08:13 84 29 100 05/25/17 08:13 84 29 05/25/17 08:11 144/73 05/25/17 08:09 168/88 05/25/17 08:08 36.8 98 16 168/88 99 Mask 6 05/25/17 06:30 36.4 74 18 113/74 (87) 94 Room Air Notes Mental Status: alert / awake / arousable, participated in evaluation Pt Amnestic to Procedure: Yes Nausea / Vomiting: adequately controlled Pain: adequately controlled Airway Patency, RR, SpO2: stable & adequate BP & HR: stable & adequate Hydration State: stable & adequate Anesthetic Complications: no major complications apparent
== END | disposition home or self-care (01) ==
LOC: X.SURG 06:19
PROVIDERS: ATTEND Surgery
DX: K61.1 Rectal abscess (principal); K62.89 Other specified diseases of anus and rectum; N40.1 Benign prostatic hyperplasia with lower urinary tract symptoms; N13.8 Other obstructive and reflux uropathy; Z79.82 Long term (current) use of aspirin; Z79.899 Other long term (current) drug therapy

== ENCOUNTER → 2017-08-25 | Outpatient (CLI) | payer OTHER, BC ==
[~2017-08-25] MED LIST changes: +ATOR10TA82 PO; -ATOR10TA88 PO; -ATROPINE SULFATE 0.1 MG/ML 5ML SYR IV PRN; -BENZOIN SPRAY 118 ML BTL TOP ONE; -BUPIVACAINE/EPINEPHRINE 0.25% 1:200,000 30 ML VIAL ONE; -CEFAZOLIN 2000MG IV PUSH 10 ML IV SCH; -DEXAMETHASONE SOD INJ 4 MG/ML VIAL ONE; -EpHEDrine SULFATE 50MG/5ML SYR ONE; -EpHEDrine SULFATE INJ 50 MG/ML AMP IV PRN; -FENTANYL CITRATE INJ 50 MCG/1 ML 2 ML VIAL IV PRN; -FENTANYL CITRATE INJ 50 MCG/1 ML 2 ML VIAL ONE; -LACTATED RINGER'S 1000ML 1,000 ML IV SCH; -LIDOCAINE HCL 2% 2 ML VIAL (20MG/ML) ONE; -METHYLENE BLUE 0.5% 10 ML VIAL ONE; -MIDAZOLAM HCL 1 MG/ML 2ML VIAL ONE; -ONDANSETRON INJ 2 MG/ML 2 ML VIAL IV PRN; -ONDANSETRON INJ 2 MG/ML 2 ML VIAL ONE; -PROPOFOL IV EMULSION 10 MG/ML 20 ML VIAL IV ONE; -SODIUM CHLORIDE 0.9% 1000ML 1,000 ML IV SCH; -SUCCINYLCHOLINE CHLORIDE 20 MG/ML 10 ML VIAL IV ONE; -SULF800T23 PO; -SULFAMETHOXAZOLE/TRIMETHOPRIM 400/80MG TAB PO SCH
[2017-08-25 11:18] LABS: BASO % 0.2 %; BASO ABS # 0.02 K/uL (0-0.2); EOS % 0.8 %; EOS ABS # 0.08 K/uL (0-0.5); HEMATOCRIT 44.6 % (42-52); IG# 0.02 K/uL (0.00-0.02); LYMPH % 28.5 %; LYMPH ABS # 2.89 K/uL (1.2-3.4); MEAN CORPUSCULAR HEMOGLOBIN 32.7 pg (25-34); MEAN CORPUSCULAR HGB CONC 35.9 g/dl (32-36); MEAN PLATELET VOLUME 9.6 fL (7.4-10.4); MONO % 6.5 %; MONO ABS # 0.66 K/uL (0.11-0.59); NEUT % 63.8 %; NEUT ABS # 6.46 K/uL (1.4-6.5); PLATELET COUNT 336 K/uL (130-400); RED CELL DISTRIBUTION WIDTH CV 12.8 % (11.5-14.5); RED CELL DISTRIBUTION WIDTH SD 42.3 fL (36.4-46.3); WHITE BLOOD COUNT 10.13 K/uL (4.8-10.8)
[2017-08-25 11:41] LABS: ALBUMIN 4.3 gm/dl (3.4-5.0); ALT/SGPT 18 U/L (12-78); AST/SGOT 11 U/L (15-37); BLOOD UREA NITROGEN 17 mg/dl (7-18); CALCIUM 8.5 mg/dl (8.5-10.1); CARBON DIOXIDE 24 mmol/L (21-32); CHOLESTEROL 124 mg/dl (0-200); CREATININE 0.89 mg/dl (0.60-1.40); GLUCOSE 116 mg/dl (70-99); SODIUM 136 mmol/L (136-145); TOTAL PROTEIN 7.2 gm/dl (6.4-8.2); URIC ACID 4.3 mg/dl (2.6-7.2)
[2017-08-25 11:50] LABS: ALKALINE PHOSPHATASE 72 U/L (45-117); LDL CHOLESTEROL CALCULATED 65 mg/dl; TRANSFERRIN 230 mg/dl (200-360)
[2017-08-25 12:48] LABS: HEMOGLOBIN A1C 5.9 % (4.5-5.6)
== END | disposition home or self-care (01) ==
LOC: C.LABBC 08:15
PROVIDERS: ATTEND Family Medicine
DX: E88.81 Metabolic syndrome and other insulin resistance (principal); E55.9 Vitamin D deficiency, unspecified; D51.9 Vitamin B12 deficiency anemia, unspecified; E78.9 Disorder of lipoprotein metabolism, unspecified; R53.83 Other fatigue

== ENCOUNTER 2017-12-02 13:20 | Emergency (ER) | payer OTHER, BC ==
[~2017-12-02] VITALS: Ht 175.3 cm; Wt 98.6 kg
[~2017-12-02 13:20] MED LIST changes: +CEPH500C2 PO
[2017-12-02 13:30] VITALS: TEMP 36.5; Ht 175.3 cm; Wt 98.6 kg
[2017-12-02] MEDS ORDERED: ACETAMINOPHEN 325 MG TAB PO STA (14:35)
[2017-12-02] MEDS ORDERED: COUGH DROP (SUGAR FREE) LOZ 24 LOZ/1 BOX LOZ STA (14:35)
[2017-12-02] MEDS ORDERED: IBUPROFEN 200 MG TAB PO STA (14:35)
[2017-12-02] MEDS ORDERED: IPRATROPIUM BROMIDE HFA INHALER INH STA (14:35)
[2017-12-02] MEDS ORDERED: BENZONATATE 100MG CAP PO ONE (14:45)
--- NOTE | 2017-12-02 14:49 | DIAGNOSTIC IMAGING REPORT ---
CHEST ONE VIEW PORTABLE CLINICAL HISTORY: cough dyspnea COMPARISON STUDY: 01/11/2017 FINDINGS: The bones soft tissues and hemidiaphragms are normal. The cardiomediastinal silhouette is normal. The lungs are clear. The pulmonary vasculature is normal. IMPRESSION: Negative chest. The above report was generated using voice recognition software. It may contain grammatical, syntax or spelling errors. Electronically signed by: Douglas Scanlon M.D. 12/02/2017 2:48 PM Dictated Date/Time: 12/02/2017 2:47 PM
[2017-12-02 15:19] VITALS: BP 100/63; PULSE 60; O2SAT 94
--- NOTE | 2017-12-02 16:04 | EMERGENCY ROOM VISIT NOTE ---
History Report prepared by Rogers: Todd Schreiber Under the Supervision of: Dr. Dimitrios Ceja M.D. First contact with patient: 14:15 Chief Complaint: DIZZY Stated Complaint: DEEP COUGH, DIZZY Nursing Triage Summary: pt reports deep cough and dizziness for 8 days told him to go to near syncope. cough produces clear to yellow mucus. feels sob has head and chest congestion History of Present Illness The patient is a 77 year old white male with a past medical history of bowel perforation, BPH, calculus of kidney, calculus of ureter, HTN, and necrotizing fasciitis who presents to the Emergency Room with complaints of a persistent cough and dizziness that began 8 days ago. The patient states that the cough is productive, but he has to cough repeatedly to bring anything up. When he brings mucous up, it is clear. When he coughs hard he becomes dizzy. He notes that his symptoms have been relatively constant over the past 8 days, but he is feeling better today. He has no abdominal pain. The patient denies any urinary or bowel movement irregularities. Source of History: patient Onset: 8 days Position: chest Quality: other (Cough) Timing: constant, other (Persistent) Associated Symptoms: + headache (Dizziness), No abdominal pain, No diarrhea , No urinary symptoms Review of Systems See HPI for pertinent positives and negatives. A total of ten systems were reviewed and were otherwise negative. Past Medical & Surgical Medical Problems: (1) Bowel perforation (2) BPH (benign prostatic hypertrophy) (3) Calculus of kidney (4) Calculus of ureter (5) HTN (hypertension) (6) Necrotizing fasciitis Family History Patient reports no known family medical history. Social History Smoking Status: Never Smoker Alcohol Use: none Drug Use: none Marital Status: Housing Status: lives with significant other Occupation Status: retired Current/Historical Medications Scheduled Aspirin (Aspirin), 1 TAB PO HS Atorvastatin (Lipitor), 10 MG PO HS Cephalexin Monohydrate (Keflex), 500 MG PO TID Cholecalciferol (Vitamin D3), 1 TAB PO HS Fluoxetine (Prozac), 20 MG PO HS Glucosamine Sulfate (Glucosamine), 1,000 MG PO QAM Levothyroxine Sodium (Levothyroxine Sodium), 50 MCG PO HS Metformin Hcl (Glucophage), 500 MG PO DAILY Multivitamin (Multivitamin), 1 TAB PO HS Ocuvite Preservision (Ocuvite Preservision), 1 TAB PO BID Zinc Gluconate (Zinc), 1 TAB PO HS Scheduled PRN Naproxen (Aleve), 440 MG PO BID PRN for Pain Allergies Coded Allergies: No Known Allergies (Verified , None, 05/25/17) Physical Exam Vital Signs Date Time Temp Pulse Resp B/P (MAP) Pulse Ox O2 Delivery O2 Flow Rate FiO2 12/02/17 15:19 60 18 100/63 94 Room Air 12/02/17 13:30 36.5 77 18 119/73 94 Room Air Physical Exam GENERAL: Awake, alert, wearing a face-mask and glasses, well-appearing, NAD HENT: Normocephalic, atraumatic. EYES: Normal conjunctiva. Sclera non-icteric. PERRL. No anisocoria. NECK: Supple. No nuchal rigidity. FROM. RESPIRATORY: CTAB, no rhonchi, wheezing, crackles CARDIAC: RRR, no MRG ABDOMEN: Soft, NTND, BS+ MSK: No chest wall TTP, no LE edema, no calf pain. Negative Kerri's sign. NEURO: GCS 15, CN 2-12 intact, moves all 4s on command SKIN: No rash or jaundice noted. Medical Decision & Procedures ER Provider Diagnostic Interpretation: Radiology results as stated below per my review and radiologist interpretation: CHEST ONE VIEW PORTABLE CLINICAL HISTORY: cough dyspnea COMPARISON STUDY: 01/11/2017 FINDINGS: The bones soft tissues and hemidiaphragms are normal. The cardiomediastinal silhouette is normal. The lungs are clear. The pulmonary vasculature is normal. IMPRESSION: Negative chest. The above report was generated using voice recognition software. It may contain grammatical, syntax or spelling errors. Electronically signed by: Douglas Scanlon M.D. 12/02/2017 2:48 PM Dictated Date/Time: 12/02/2017 2:47 PM Medications Administered Medications (Trade) Dose Ordered Sig/Ben Route Start Time Stop Time Status Last Admin Dose Admin Menthol (Nice Caroline) 1 caroline NOW STAT CAROLINE 12/02/17 14:35 12/02/17 14:36 DC 12/02/17 14:44 1 CAROLINE Benzonatate (Tessalon Perles Cap) 100 mg NOW ONCE PO 12/02/17 14:45 12/02/17 14:46 DC 12/02/17 14:44 100 MG Acetaminophen (Tylenol Tab) 650 mg NOW STAT PO 12/02/17 14:35 12/02/17 14:36 DC 12/02/17 14:44 650 MG Ibuprofen (Advil Tab) 400 mg NOW STAT PO 12/02/17 14:35 12/02/17 14:36 DC 12/02/17 14:45 400 MG Ipratropium Morris (Atrovent Hfa Inhaler) 2 puffs NOW STAT INH 12/02/17 14:35 12/02/17 14:36 DC 12/02/17 15:04 2 PUFFS ED Course 1416: The patient was evaluated in room C8. A complete history and physical exam was performed. 1550: I reevaluated the patient. Discussed results and discharge instructions: He verbalized understanding and agreement. The patient is ready for discharge. Medical Decision The patient is a 77 year old white male with a past medical history of bowel perforation, BPH, calculus of kidney, calculus of ureter, HTN, and necrotizing fasciitis who presents to the Emergency Room with complaints of a persistent cough and dizziness that began 8 days ago. Nursing notes reviewed. Ancillary studies and prior records reviewed. Differential diagnosis: Etiologies such as infections, reactive airway disease, pneumonia, pneumothorax , COPD, CHF, cardiac ischemia, pulmonary embolism, musculoskeletal, gastrointestinal, as well as others were entertained. Patient was seen and evaluated the bedside. Patient was complaining of some persistent cough times 8 days. Patient did relate some dizziness but stated this was only after he had a coughing fits. Patient denies any chest pain. Patient has had some dry to clear or even yellowish sputum. Patient denies any sick contacts and does not smoke. Patient is afebrile with stable vital signs. Patient did have a chest x-ray completed and the patient was given some medications. Patient chest x-ray clear. Upon reassessment the patient was feeling improved. Patient was given additional [id number] type treatments as well as recommend agents for home and was told to return if he had any worsening symptoms such as high fever more. Purulent sputum or other issues. I do not believe he needs further workup of posttussive dizziness as I did discuss with him that given the increased coughing fits this likely increase his intrathoracic intra-abdominal pressure which decreases venous return. Patient was told just to be careful when he does have coughing and that he should sit down. Patient was also told to make sure he liberally hydrate with clear liquids. Patient was given strict follow-up, discharge, and return precautions. All questions were answered. Patient was deemed suitable for outpatient follow-up at this time. Patient agreed with the plan of care and was safely discharged home. Medication Reconcilliation Current Medication List: was personally reviewed by me Blood Pressure Screening Patient's blood pressure: Normal blood pressure Impression Primary Impression: Cough Additional Impression: Dizziness Scribe Attestation The scribe's documentation has been prepared under my direction and personally reviewed by me in its entirety. I confirm that the note above accurately reflects all work, treatment, procedures, and medical decision making performed by me. Departure Information Dispostion Home / Self-Care Referrals Parviz Westfall M.D. (PCP) Patient Instructions Coughing Techniques, Deep Coughing, My [facility] Additional Instructions Please return to the emergency department if you have worsening or recurrent symptoms not amenable to at-home treatment. Please call for a follow-up appointment with her primary care physician. Please take your medications as prescribed. If you have other concerns and/or complaints please feel free to also call your primary care physician's office or return the ED for further evaluation, management, and treatment. You may take 400 mg Ibuprofen every 6 hours as needed for pain/fever with food unless told by your physician not to take NSAIDs. You may take tylenol 500 mg every 6 hours as needed for pain/fever unless told by your physician to not take it or have liver problems. You may take motrin and tylenol separately or at the same time. Take your medications as prescribed. You may use Tessalon Perles as a cough suppressant. Consider something like Mucinex as an expectorant. You have been examined and treated today on an emergency basis only. This is not a substitute for, or an effort to provide, complete comprehensive medical care. It is impossible to recognize and treat all injuries or illnesses in a single emergency department visit. It is therefore important that you follow up closely with [facility], your PCP, and/or your specialist(s). Call as soon as possible for an appointment. Thank you for your time and consideration. I look forward to speaking with you again soon. Please don't hesitate to call us if you have any questions. Problem Qualifiers
== END 2017-12-02 16:13 | disposition home or self-care (01) ==
LOC: C.EDB 13:21 → C.EDC 16:13
DX: R05 Cough (principal); R42 Dizziness and giddiness; I10 Essential (primary) hypertension; N40.0 Benign prostatic hyperplasia without lower urinary tract symptoms; Z79.82 Long term (current) use of aspirin; Z79.899 Other long term (current) drug therapy

== ENCOUNTER 2017-12-17 19:16 | Emergency (ER) | payer OTHER, BC ==
[~2017-12-17] VITALS: Ht 175.3 cm; Wt 100.0 kg
[2017-12-17 19:19] VITALS: BP 155/94; TEMP 36.4; Ht 175.3 cm; Wt 100.0 kg
[2017-12-17] MEDS ORDERED: LIDOCAINE/EPINEPHRINE 1% 20 ML VIAL INFIL STA (19:33)
[2017-12-17] MEDS ORDERED: DIPHTHERIA/TETANUS/PERTUSSIS 0.5 ML SYR/VIAL IM. ONE (19:45)
--- NOTE | 2017-12-17 19:46 | EMERGENCY ROOM VISIT NOTE ---
ED Visit Note First contact with patient: 19:24 CHIEF COMPLAINT: Facial laceration, fall HISTORY OF PRESENT ILLNESS: This 77-year-old male patient presents emergency department, ambulatory, complaining of a laceration to the left side of the forehead. The patient states he was walking down an alley to go to dinner when he was looking up and did not realize there were 3 steps. He states he fell, landing on his face. The incident occurred approximately 15 minutes ago. There was no loss of consciousness, vomiting, or unusual behavior afterwards. Denies neck pain. No headache, nausea, or blurred vision. There is moderate bleeding. The patient rates the pain as sharp and 3/10. The patient's tetanus shot is not up to date. REVIEW OF SYSTEMS: A 6 system review of systems was completed with positives and pertinent negatives listed in the HPI. ALLERGIES: None MEDICATIONS: Aspirin, atorvastatin, Prozac, levothyroxine, Metformin PMH: Diabetes, hypothyroidism, hyperlipidemia SOCIAL HISTORY: Patient lives locally with family. He denies drug, alcohol, tobacco use. PHYSICAL EXAM: Vital Signs: Reviewed Nurse's notes, vital signs stable. GENERAL : This is a 77-year-old white male, in no acute distress, well-developed, well- nourished. NEURO: The patient is alert and oriented to person place and time. No focal neurological defects. Negative Romberg and pronator drift. EYES: Pupils are round, equal, and react to light. Contusion with ecchymosis of the left periorbital area. EOMI. EARS: No hemotympanum. NECK: Supple. No cervical spine tenderness. FACE: No facial bone tenderness or mandibular tenderness. The mouth can open fully. The teeth are well aligned. No loose or chipped teeth. SKIN: There is a 3 cm laceration just superior to the left eyebrow. The edges gape apart with traction. There is moderate active bleeding and no foreign material in the wound. There are no deep structures present. Capillary refill less than two seconds. Normal sensation to light and sharp touch. RADIOLOGY: CT HEAD WITHOUT CONTRAST (CT) CLINICAL HISTORY: Head pain status post trauma COMPARISON STUDY: 07/21/2016 TECHNIQUE: Axial CT of the brain is performed from the vertex to the skull base. IV contrast was not administered for this examination. A dose lowering technique was utilized adhering to the principles of ALARA. CT DOSE: 687.98 mGy.cm FINDINGS: No intra or extra-axial mass lesions are visualized. There is no CT evidence of acute cortical infarction. There is no evidence of midline shift. There is no acute hemorrhage. No calvarial fractures are visualized. There are minimal white matter hypodensities likely on a small vessel basis. There is no evidence of pathologic ventricular dilatation. There is no evidence of acute sinusitis. There is minimal left frontal scalp edema IMPRESSION: No acute intracranial findings Electronically signed by: Jason Brian M.D. 12/17/2017 7:52 PM Dictated Date/Time: 12/17/2017 7:49 PM EMERGENCY DEPARTMENT COURSE: I examined the patient. CT scan performed and reviewed by myself and radiologist as above. Verbal consent was obtained to perform the procedure. Using sterile technique the wound was cleansed with Betadine. The area was sterilely draped. 8 ml of 1% lidocaine with epinephrine was used to anesthetize the laceration on the face. Once the patient was anesthetized, the wound was copiously irrigated under pressure with sterile saline. The wound was explored and was as described above. The laceration was repaired using 3 simple interrupted 5-0 Vicryl sutures below the dermis and 12 simple interrupted 5-0 nylon sutures with the wound edges being well approximated. The patient tolerated the procedure well. Hemostasis was achieved. The area was cleaned with sterile saline and dressed with bacitracin ointment. The patient was given Tdap immunization. Discharge instructions reviewed. The patient was discharged home in good condition. The patient was seen by Dr. Mehta. I attest that I have personally reviewed the patient's current medication list. Patient was found to have normal blood pressure on screening and does not require follow-up. Differential diagnosis includes laceration, contusion, fracture, sprain/strain, tendon or ligament injury, neurovascular compromise, foreign body, ICH, skull fracture, contusion, assault, and others DIAGNOSIS: Facial laceration The chart was completed utilizing [employer] voice recognition software. Grammatical errors, random word insertions, pronoun errors, and incomplete sentences are an occasional consequence of this system due to software limitations, ambient noise, and hardware issues. Any formal questions or concerns about the content, text, or information contained within the body of this dictation should be directly addressed to the provider for clarification. Problem List Medical Problems: (1) Bowel perforation Status: Resolved (2) BPH (benign prostatic hypertrophy) Status: Chronic (3) Calculus of kidney Status: Resolved (4) Calculus of ureter Status: Resolved (5) HTN (hypertension) Status: Chronic (6) Necrotizing fasciitis Status: Resolved Current/Historical Medications Scheduled Aspirin (Aspirin), 1 TAB PO HS Atorvastatin (Lipitor), 10 MG PO HS Cephalexin Monohydrate (Keflex), 500 MG PO TID Cholecalciferol (Vitamin D3), 1 TAB PO HS Fluoxetine (Prozac), 20 MG PO HS Glucosamine Sulfate (Glucosamine), 1,000 MG PO QAM Levothyroxine Sodium (Levothyroxine Sodium), 50 MCG PO HS Metformin Hcl (Glucophage), 500 MG PO DAILY Multivitamin (Multivitamin), 1 TAB PO HS Ocuvite Preservision (Ocuvite Preservision), 1 TAB PO BID Zinc Gluconate (Zinc), 1 TAB PO HS Scheduled PRN Naproxen (Aleve), 440 MG PO BID PRN for Pain Allergies Coded Allergies: No Known Allergies (Verified , None, 05/25/17) Vital Signs Date Time Temp Pulse Resp B/P (MAP) Pulse Ox O2 Delivery O2 Flow Rate FiO2 12/17/17 19:19 36.4 73 20 155/94 94 Room Air Medications Administered Medications (Trade) Dose Ordered Sig/Ben Route Start Time Stop Time Status Last Admin Dose Admin Diphtheria/ Pertussis/Tetanus Vacc (Adacel Inj) 0.5 ml ONCE ONCE IM. 12/17/17 19:45 12/17/17 19:46 DC 12/17/17 20:05 0.5 ML Lidocaine/ Epinephrine (Xylocaine/Epine 1% Inj) 20 ml NOW STAT INFIL 12/17/17 19:33 12/17/17 19:36 DC 12/17/17 19:57 20 ML Departure Information Impression Primary Impression: Facial laceration Additional Impression: Head injury Dispostion Home / Self-Care Condition GOOD Referrals Parviz Westfall M.D. (PCP) Patient Instructions ED Head Injury Closed, ED Immunization Tetanus and FU, ED Laceration Facial Sutr Tape, [employer] Additional Instructions You have received 12 sutures on your forehead. These sutures are NOT dissolvable and WILL need to be removed by a health care provider in 6-7 days. You can return to the Emergency Department or contact your Primary Care Provider to have the sutures removed. Proper wound care is essential for adequate wound healing and infection prevention. You can shower and clean the wound with soap and water. Do not scour over the wound, pat dry with a towel. Do not submerse the wound (i.e. bathe or dish wash) until the sutures have been removed. You can use an antibiotic ointment with a dressing over the wound for the next 3-4 days. After this time you may leave the wound dry and open to the air. If crust develops over the wound you can use a Q-tip to apply a 1:1 peroxide:water solution to clean the wound. Look for signs of infection of the wound including: increased pain, swelling, foul discharge, streaking, or increased temperature. If any of these are noticed you should return to the Emergency Department for further assessment and treatment. As with any laceration you may have received nerve damage to the surrounding tissues. This damage may or may not be permanent. You should keep the area covered with sunscreen for the first 6 months to 1 year when at risk for exposure to help minimize scarring. You can also use scar reducing creams or Vitamin E oil to help minimize scarring. For pain control, you can use the following [id number] medicines (if >12 yo): Ibuprofen(Motrin, Advil) may be used for fever or pain. Use 600mg every six hours as needed. Take with food. Avoid using more than 2400mg in a 24 hour period. Do not use 2400mg per day for more than three consecutive days without physician direction. Prolonged inappropriate use can lead to stomach upset or ulcers. (AND/OR) Acetaminophen(Tylenol) may be used for fever or pain. Use 1000mg every six hours as needed. Avoid using more than 3000mg in a 24 hour period. Return to the emergency department if your symptoms worsen despite treatment course outlined above. Problem Qualifiers Primary Impression: Facial laceration Encounter type: initial encounter Qualified Codes: S01.81XA - Laceration without foreign body of other part of head, initial encounter Additional Impression: Head injury Encounter type: initial encounter Qualified Codes: S09.90XA - Unspecified injury of head, initial encounter
--- NOTE | 2017-12-17 19:53 | DIAGNOSTIC IMAGING REPORT ---
CT HEAD WITHOUT CONTRAST (CT) CLINICAL HISTORY: Head pain status post trauma COMPARISON STUDY: 07/21/2016 TECHNIQUE: Axial CT of the brain is performed from the vertex to the skull base. IV contrast was not administered for this examination. A dose lowering technique was utilized adhering to the principles of ALARA. CT DOSE: 687.98 mGy.cm FINDINGS: No intra or extra-axial mass lesions are visualized. There is no CT evidence of acute cortical infarction. There is no evidence of midline shift. There is no acute hemorrhage. No calvarial fractures are visualized. There are minimal white matter hypodensities likely on a small vessel basis. There is no evidence of pathologic ventricular dilatation. There is no evidence of acute sinusitis. There is minimal left frontal scalp edema IMPRESSION: No acute intracranial findings Electronically signed by: Jason Brian M.D. 12/17/2017 7:52 PM Dictated Date/Time: 12/17/2017 7:49 PM
[2017-12-17 20:53] VITALS: PULSE 73; O2SAT 95
--- NOTE | 2017-12-17 21:11 | EMERGENCY ROOM VISIT NOTE ---
ED Visit Note First contact with patient: 19:24 Patient was seen by our PA/WINDERMAN. I was involved in the patient's care and did evaluate the patient myself. I was involved in the care throughout the ER stay. The patient presents after falling. He has a laceration above his left eyebrow. CT imaging did not show any acute traumatic process. The patient's laceration is being repaired, he will be discharged home.
== END 2017-12-17 20:55 | disposition home or self-care (01) ==
LOC: C.EDB 19:18 → C.EDD 20:55
DX: S01.81XA Laceration without foreign body of other part of head, initial encounter (principal); S09.90XA Unspecified injury of head, initial encounter; W19.XXXA Unspecified fall, initial encounter; E03.9 Hypothyroidism, unspecified; E78.5 Hyperlipidemia, unspecified; N40.0 Benign prostatic hyperplasia without lower urinary tract symptoms; Z23 Encounter for immunization

== ENCOUNTER → 2018-02-28 | Outpatient (CLI) | payer OTHER, BC ==
[2018-02-28 11:16] LABS: BASO % 0.3 %; BASO ABS # 0.02 K/uL (0-0.2); EOS % 1.9 %; EOS ABS # 0.13 K/uL (0-0.5); HEMOGLOBIN 15.1 g/dL (14.0-18.0); IG# 0.01 K/uL (0.00-0.02); LYMPH % 34.2 %; LYMPH ABS # 2.32 K/uL (1.2-3.4); MEAN CELL VOLUME 91.9 fL (80-100); MEAN CORPUSCULAR HEMOGLOBIN 31.5 pg (25-34); MEAN CORPUSCULAR HGB CONC 34.3 g/dl (32-36); MEAN PLATELET VOLUME 9.4 fL (7.4-10.4); MONO ABS # 0.54 K/uL (0.11-0.59); NEUT % 55.5 %; NEUT ABS # 3.76 K/uL (1.4-6.5); PLATELET COUNT 324 K/uL (130-400); RED CELL DISTRIBUTION WIDTH CV 13.4 % (11.5-14.5); RED CELL DISTRIBUTION WIDTH SD 44.8 fL (36.4-46.3); WHITE BLOOD COUNT 6.78 K/uL (4.8-10.8)
[2018-02-28 11:48] LABS: HEMOGLOBIN A1C 6.2 % (4.5-5.6)
[2018-02-28 14:37] LABS: ALBUMIN 4.2 gm/dl (3.4-5.0); ALKALINE PHOSPHATASE 74 U/L (45-117); ALT/SGPT 18 U/L (12-78); AST/SGOT 13 U/L (15-37); BLOOD UREA NITROGEN 19 mg/dl (7-18); CALCIUM 8.3 mg/dl (8.5-10.1); CARBON DIOXIDE 22 mmol/L (21-32); CHOLESTEROL 150 mg/dl (0-200); CREATININE 0.86 mg/dl (0.60-1.40); GLUCOSE 125 mg/dl (70-99); LDL CHOLESTEROL CALCULATED 90 mg/dl; SODIUM 140 mmol/L (136-145); TOTAL PROTEIN 7.1 gm/dl (6.4-8.2); TRANSFERRIN 248 mg/dl (200-360); URIC ACID 3.6 mg/dl (2.6-7.2)
== END | disposition home or self-care (01) ==
LOC: C.LABBC 09:05
PROVIDERS: ATTEND Family Medicine
DX: E88.81 Metabolic syndrome and other insulin resistance (principal); E55.9 Vitamin D deficiency, unspecified; D51.9 Vitamin B12 deficiency anemia, unspecified; E78.9 Disorder of lipoprotein metabolism, unspecified; R53.83 Other fatigue

== ENCOUNTER 2021-12-09 06:24 | Observation (INO) ==
--- NOTE | 2021-11-10 09:35 | PAT Medication Instructions ---
Medication Instructions Date of Service November 10, 2021 Home Medications Medication Instructions Recorded chlorpheniramine maleate 4 mg 4 mg PO Q12H 30 Days #60 tab 04/29/21 tablet (Allergy Relief (chlorpheniramine)) fluticasone propionate 50 1 spray INTRANASAL BID #18.2 ml 04/29/21 mcg/actuation nasal spray,suspension (Flonase Allergy Relief) sodium chloride, sodium See Rx Instructions .ROUTE 04/29/21 bicarb-nasal rinse squeeze bottle .COMPLEX #50 ea with packet (Neilmed Sinus Rinse Complete) tamsulosin 0.4 mg capsule 0.4 mg PO HS #90 cap 11/07/21 Focus Eye Vitamins 1 tab PO BID atorvastatin 10 mg tablet 10 mg PO HS cholecalciferol (vitamin D3) 25 mcg (1,000 unit) capsule (Vitamin D3) 1,000 unit PO HS fluoxetine 20 mg capsule (Prozac) 20 mg PO HS glucosamine sulfate 500 mg tablet (Glucosamine) 1,000 mg PO QAM levothyroxine 50 mcg tablet 50 mcg PO HS metformin 500 mg tablet,extended release 24 hr 500 mg PO BID Centrum Silver Men 1 tab PO HS acetaminophen 325 mg tablet (Tylenol) 650 mg PO QID PRN pantoprazole 40 mg tablet,delayed release 40 mg PO HS zinc 50 mg tablet 50 mg PO HS naproxen sodium 220 mg capsule (Aleve) 220 mg PO BID PRN chlorpheniramine maleate 4 mg tablet (Allergy Relief (chlorpheniramine)) 4 mg PO Q12H fluticasone propionate 50 mcg/actuation nasal spray,suspension (Flonase Allergy Relief) 1 spray INTRANASAL BID lactobacillus combination no.4 3 billion cell capsule (Probiotic) 3,000 mmu cells PO QAM sodium chloride, sodium bicarb-nasal rinse squeeze bottle with packet (Neilmed Sinus Rinse Complete) See Rx Instructions .ROUTE .COMPLEX tamsulosin 0.4 mg capsule 0.4 mg PO HS ASK your surgeon for instructions naproxen sodium 220 mg capsule (Aleve) 220 mg PO BID PRN STOP taking 2 weeks before surgery (or as soon as possible if surgery is within 2 weeks) Focus Eye Vitamins 1 tab PO BID glucosamine sulfate 500 mg tablet (Glucosamine) 1,000 mg PO QAM DO NOT take the morning of surgery metformin 500 mg tablet,extended release 24 hr 500 mg PO BID chlorpheniramine maleate 4 mg tablet (Allergy Relief (chlorpheniramine)) 4 mg PO Q12H lactobacillus combination no.4 3 billion cell capsule (Probiotic) 3,000 mmu cells PO QAM sodium chloride, sodium bicarb-nasal rinse squeeze bottle with packet (Neilmed Sinus Rinse Complete) See Rx Instructions .ROUTE .COMPLEX Take morning of surgery With a small sip of water, OTHERWISE NOTHING TO EAT OR DRINK AFTER MIDNIGHT: acetaminophen 325 mg tablet (Tylenol) 650 mg PO QID PRN (okay to take up to 4 hours prior to surgery if needed) fluticasone propionate 50 mcg/actuation nasal spray,suspension (Flonase Allergy Relief) 1 spray INTRANASAL BID Take evening before surgery atorvastatin 10 mg tablet 10 mg PO HS cholecalciferol (vitamin D3) 25 mcg (1,000 unit) capsule (Vitamin D3) 1,000 unit PO HS fluoxetine 20 mg capsule (Prozac) 20 mg PO HS levothyroxine 50 mcg tablet 50 mcg PO HS metformin 500 mg tablet,extended release 24 hr 500 mg PO BID Centrum Silver Men 1 tab PO HS acetaminophen 325 mg tablet (Tylenol) 650 mg PO QID PRN (if needed) pantoprazole 40 mg tablet,delayed release 40 mg PO HS zinc 50 mg tablet 50 mg PO HS chlorpheniramine maleate 4 mg tablet (Allergy Relief (chlorpheniramine)) 4 mg PO Q12H fluticasone propionate 50 mcg/actuation nasal spray,suspension (Flonase Allergy Relief) 1 spray INTRANASAL BID tamsulosin 0.4 mg capsule 0.4 mg PO HS Other Notes If you have any questions please call us at [phone] or [phone] or [phone] or [phone]
--- NOTE | 2021-11-11 14:28 | Anesthesiology Consultation ---
Date of Service November 11, 2021 Assessment & Plan (1) Encounter for pre-operative examination: Chart Review Chart Review: Acceptable Risk for Surgery (pending preop Covid testing results ) and Patient seen in Pre Admission Testing Per PAT appt on 11/11/21, patient denies any recent travel or large group activities. No known Covid positive exposures or Covid related symptoms. No known Covid infection in the past 90 days. Pt is vaccinated for Covid. Preop Covid testing scheduled 12/05/21= will await results. Educated on importance of self quarantining, social distancing and wearing mask in public for the patient one week prior to surgery and after Covid testing done Last seen by pulmonary 06/17/21= patient seen for routine follow-up on cough. Cough has improved by 80%. Using chlorpheniramine and Sudafed fairly regularly. Cough- improved with therapy. Would recommend Flonase and saline sinus irrigation on a more regular basis. If remains well controlled- can discontinue chlorpheniramine and Sudafed in the future. You to treat reflux. Pulmonary nodules have been stable dating back over 10 yearsno additional radiographic surveillance or follow-up as needed. Patient can follow-up on a PRN basis Left knee arthroscopy, rotator cuff repair, biceps tenodesis 02/19/2020 = done under [facility] with LMA #5. Atraumatic. Teaching & Discussion Pre-Anesthesia Teaching/Discussion Notes: Instructed NPO after midnight before surgery,except medications with 15 cc of water. Medication instructions provide d according to the PAT guidelines. History Surgery Operation Date: 12/09/21 10:40 Proposed Procedures p Right Total Knee Replacement - Zeeshan Martini MD Height/Weight Height: 5 ft 9 in Weight: 100.4 kg Allergies Allergy/AdvReac Type Severity Reaction Status Date / Time No Known Allergies Allergy None Verified 11/06/21 09:55 Medications Home Medications Medication Instructions Recorded Confirmed Last Taken Focus Eye Vitamins 1 tab PO BID 10/03/18 11/06/21 04/13/20 atorvastatin 10 mg tablet 10 mg PO HS 10/03/18 11/06/21 04/13/20 cholecalciferol (vitamin D3) 25 1,000 unit PO HS 10/03/18 11/06/21 04/13/20 mcg (1,000 unit) capsule (Vitamin D3) fluoxetine 20 mg capsule (Prozac) 20 mg PO HS 10/03/18 11/06/21 04/13/20 glucosamine sulfate 500 mg tablet 1,000 mg PO QAM 10/03/18 11/06/21 04/13/20 (Glucosamine) levothyroxine 50 mcg tablet 50 mcg PO HS 10/03/18 11/06/21 04/13/20 metformin 500 mg tablet,extended 500 mg PO BID 10/03/18 11/06/21 04/13/20 release 24 hr wmcbzhoo-liw-dqziq acid 300 1 tab PO HS 10/03/18 11/06/21 04/13/20 mcg-lycopene 600 mcg-lutein 300 mcg tablet (Centrum Silver Men) acetaminophen 325 mg tablet 650 mg PO QID PRN 04/14/20 11/06/21 04/13/20 12:00 (Tylenol) pantoprazole 40 mg tablet,delayed 40 mg PO HS 04/14/20 11/06/21 04/13/20 release zinc 50 mg tablet 50 mg PO HS 04/14/20 11/06/21 04/13/20 naproxen sodium 220 mg capsule 220 mg PO BID PRN 08/23/20 11/06/21 Unknown (Aleve) chlorpheniramine maleate 4 mg 4 mg PO Q12H 30 Days #60 tab 04/29/21 11/06/21 Unknown tablet (Allergy Relief (chlorpheniramine)) fluticasone propionate 50 1 spray INTRANASAL BID #18.2 ml 04/29/21 11/06/21 Unknown mcg/actuation nasal spray,suspension (Flonase Allergy Relief) lactobacillus combination no.4 3 3,000 mmu cells PO QAM 04/29/21 11/06/21 Unknown billion cell capsule (Probiotic) sodium chloride, sodium See Rx Instructions .ROUTE 04/29/21 11/06/21 Unknown bicarb-nasal rinse squeeze bottle .COMPLEX #50 ea with packet (Neilmed Sinus Rinse Complete) tamsulosin 0.4 mg capsule 0.4 mg PO HS #90 cap 11/07/21 Unknown Past Medical History Medical History (Updated 11/12/21 @ 09:33 by Milagros Benitez PA-C) BPH (benign prostatic hypertrophy) GERD (gastroesophageal reflux disease) History of kidney stones No recent issues History of necrotising fasciitis Occurred around 2013 - initially started in buttocks area with abscess- had extensive surgery to remove No issues since that time HTN (hypertension) Hyperlipidemia Hypothyroidism Macular degeneration Prediabetes Hgb A1C 6.8 on 11/11/21 (pt in DM range) Subdural hematoma S/P FALLING 2014 (NO INTERVENTION NEEDED) No current issues Exercise / Class Metabolic Activity III < 4 Walking/Shop/Light housework (one flight of stairs - no chest pain, mild SOB ) Past Family History Family History Mother Family history of diabetes mellitus Other Family history non-contributory No family history of adverse response to anesthesia Past Surgical History Surgical History H/O eye surgery RT RETINA REPAIR History of arthroscopy of left shoulder (~02/21/20) @ [facility] History of colon resection hx of ileostomy--reversal done History of colonoscopy History of hernia repair (~10/04/20) @ [facility] History of herniorrhaphy History of reversal of ileostomy History of surgery perirectal abscess Hx of transurethral resection of prostate Past Anesthesia History No Hx of Anesthesia Complications and No Family Hx of Anesthesia Complications History of PONV No Hx of PONV and No Hx of Motion Sickness Social History Smoking Status: Never smoker Do You Dip or Chew Tobacco: No Hx Alcohol Use: No Hx Substance Use: No substance use type: does not use Review of Systems Reflux - well controlled with Protonix Patient denies chest pain, shortness of breath at rest, cough, wheezing, palpitations. No hx of seizures, stroke, [place], apnea/snoring. No hx of blood clots or blood transfusions Physical Exam Vital Signs VITALS BP 134/69 P 85 TEMP 98.1 SP02 94% RESP 16 Constitutional no acute distress ENMT Mouth: no TMJ clicking Thyromental Distance: > or= 3.5 Finger Breadths (3.5) Mallampati Class: III Two permanent bridges to side teeth Crowns to molars Neck + limited neck extension and + facial hair (advised patient trim and/or shave gaffney ) Respiratory normal respiratory effort; no respiratory distress Auscultation: lungs clear to auscultation bilaterally; no wheezes Cardiovascular Rate/Rhythm: regular rate and regular rhythm Heart Sounds: no murmur Vessels: no carotid bruit Heart sound diminished throughout Musculoskeletal Spine: no pain with cervical ROM Extremities: extremities normal to inspection Psychiatric Orientation: alert Lab Results Anesthesia Preop Results Results Anesthesia Widget: WBC 9.43 K/uL (4.8-10.8) 11/11/21 Hgb 14.2 g/dL (14.0-18.0) 11/11/21 Hct 41.8 % (42-52) L 11/11/21 Plt 339 K/uL (130-400) 11/11/21 Na 140 mmol/L (136-145) 11/11/21 K 4.1 mmol/L (3.5-5.1) 11/11/21 Cl 106 mmol/L (98-107) 11/11/21 CO2 26 mmol/L (21-32) 11/11/21 BUN 13 mg/dl (6-23) 11/11/21 Creat 0.93 mg/dl (0.6-1.4) 11/11/21 Glucose Level 127 mg/dl (70-99(Fasting)) H 11/11/21 PT 10.7 Seconds (9.0-12.0) 11/11/21 PTT 28.8 Seconds (21.0-31.0) 11/11/21 INR 1.0 (0.9-1.1) 11/11/21 HA1c 6.8 % (4.5-5.6) H 11/11/21 Blood Type O Positive 11/11/21 Antibody Screen NEGATIVE 11/11/21 Testing Electrocardiogram Date: 11/11/21 Findings: + NSR @ (80bpm ) Low voltage QRS When compared to EKG from February 16, 2020 borderline criteria for inferior infarct are no longer present, TWI now evident in inferior leads per cardio. (Discussed with Dr. Clancy - TWI noted in lead III- patient without any significant cardiac symptoms- patient can proceed with surgery) Chest X-Ray Date: 01/10/21 Findings: + NAD Other Testing Chest CT 02/26/2021 = no suspicious pulmonary nodules. No change in numerous small lower lung nodule since abdominal CTA September 19, 2010. These are benign given stability. No consolidation to suggest pneumonia. No CT evidence for interstitial lung disease.
--- NOTE | 2021-12-06 10:15 | History and Physical Report ---
CHIEF COMPLAINT: Persistent progressive right knee pain and discomfort. HISTORY OF PRESENT ILLNESS: The patient is an 81-year-old gentleman who now presents for surgical tr eatment of his right knee. He has got a long history of knee problems on this side. He had an open meniscectomy back in the 70s. We have been treating him with some intermittent injections, which hernán beard helped, but has become less successful over time. He has been followed by Dr. Veras, Dr. Gaitan on, and now, myself. Pain is global. The more he is up and on it, the more it hurts. He limps more as the day goes on. It does swell. It is increased going up and down steps. He would like to have his knee fixed. PAST MEDICAL HISTORY: Significant for: 1. Osteoarthritis. 2. Kidney stones. 3. Hepatitis. 4. BPH. 5. Diabetes. PAST SURGICAL HISTORY: Includes: 1. Right knee open meniscectomy in 70. 2. Shoulder surgery. 3. Colon surgery. 4. Hernia repair. ALLERGIES: None. CURRENT MEDICATIONS: 1. Tylenol. 2. Aspirin. 3. Atorvastatin. 4. Vitamin D3. 5. Prozac. 6. Flonase. 7. Glucosamine. 8. Probiotics. 9. Levothyroxine. 10. Metformin. 11. Naproxen. 12. Pantoprazole. 13. Sudafed. 14. Tamsulosin. 15. Zinc. SOCIAL HISTORY: An 81-year-old gentleman. He lives in [place]. Does not smoke or drink. FAMILY HISTORY: Noncontributory. REVIEW OF SYSTEMS: Significant for diabetes. Denies any chest pain or shortness of breath. No hist ory of DVT or PE. No known bleeding problems. PHYSICAL EXAMINATION: GENERAL: Shows a pleasant, elderly male. He looks to be younger than his stated age. HEENT: Benign. NECK: Supple. No lymphadenopathy. LUNGS: Clear to auscultation. HEART: Has a regular rate and rhythm. ABDOMEN: Soft, nontender, nondistended. EXTREMITIES: Grossly neurovascularly intact except as follows: Examination of the right knee reveal ed the patient walks with a slightly antalgic gait. He does limp on this right side. He has got wel l-healed far medial scar from his previous open meniscectomy. He has got bony hypertrophy throughout his knee. Fairly stiff knee with about 10-15 degree flexion contracture and bends to about 105 degr ees. No instability. No pain with hip motion. X-RAYS: X-rays of the right knee reviewed. It shows advanced right knee DJD. He has got complete l oss of his medial joint space. He has subchondral sclerosis. ASSESSMENT: An 81-year-old gentleman with a history of open meniscectomy back in the 70s with advanc ed right knee degenerative joint disease. 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 He has failed conservative measures and would like to have his right knee rep laced. PLAN: We will take him to the operating room and do right total knee replacement. Risks and benefit s of this procedure were explained to the patient and include but not limited to DVT, PE, , infe ction, neurological injury, vascular injury, bleeding problem, pain, limited range of motion, stiffne ss, failure to relieve symptoms, incomplete relief of symptoms, need for further surgery in the futur e, fracture, leg length inequality, nerve palsy, etc. The patient understands and desires to proceed . Informed consent was obtained. Hopefully, we will be able to keep him just overnight and get him home the following day. He is plan clarita on using Huzco for recovery. Hold the metformin the morning of surgery. Job ID: [id number]
[~2021-12-09 06:24] MED LIST changes: +ACETAMINOPHEN 500 MG TAB PO SCH; -ASPI81CH2 PO; -ATOR10TA82 PO; +BUPIVACAINE 0.5 % 5 MG/1 ML PF 10ML VIAL ONE; -CEPH500C2 PO; -CHOL1000 PO; +CeleBREX 200 MG CAP PO SCH; +FAMOTIDINE 20 MG TAB PO SCH; -FLUO20CA35 PO; -GLC/500 PO; -GLUC10007 PO; -LEVO50TA6 PO; +LR 500ML BOLUS, THEN 15ML/HR IV SCH; +LR 60ML/HR IV SCH; +METOCLOPRAMIDE HCL 10 MG TABLET PO SCH; -MULT-190 PO; -MULT-506 PO; -NAPR1TAB9 PO; +ROPIVACAINE 0.5% 5 MG/ML 30 ML VIAL ONE; +TRANEXAMIC ACID 1,000 MG **IV Intra-op IV SCH; -ZINC1TAB4 PO; +ceFAZolin 2000MG 2,000 MG/15 ML SYR IV SCH
--- NOTE | 2021-12-09 06:49 | History & Physical Bridge Note ---
Date of Service December 09, 2021 History & Physical Bridge Note I have examined the patient, reviewed the History & Physical and in the interval since the performance of the History & Physical I have noted the following changes of clinical significance: no changes noted
[2021-12-09] MEDS ORDERED: MIDAZOLAM HCL 1 MG/ML 2ML VIAL ONE (07:38)
[2021-12-09] MEDS ORDERED: ONDANSETRON INJ 2 MG/ML 2 ML VIAL ONE (07:38)
[2021-12-09] MEDS ORDERED: PROPOFOL IV EMULSION 10 MG/ML 20 ML VIAL IV ONE (07:38)
[2021-12-09] MEDS ORDERED: LIDOCAINE 2% 2 ML VIAL/AMP(20MG/ML) INFIL ONE (07:38)
[2021-12-09] MEDS ORDERED: BUPIVACAINE/EPINEPHRINE 0.25% 1:200,000 30 ML VIAL ONE (08:27)
[2021-12-09] MEDS ORDERED: SODIUM CHLORIDE 0.9% PF 50 ML VIAL ONE (08:28)
[2021-12-09] MEDS ORDERED: BUPIVACAINE LIPOSOME 1.3% 266 MG/20 ML VIAL ONE (08:28)
[2021-12-09] MEDS ORDERED: ONDANSETRON INJ 2 MG/ML 2 ML VIAL IV PRN ×2 (08:30→11:35)
[2021-12-09] MEDS ORDERED: ePHEDrine sulfate 50 MG/ML AMP IV PRN (08:30)
[2021-12-09] MEDS ORDERED: HYDROmorphone INJ 1 MG/ML SYRINGE IV PRN (08:30)
[2021-12-09] MEDS ORDERED: ATROPINE SULFATE 0.1 MG/ML 10ML SYR IV PRN (08:30)
[2021-12-09] MEDS ORDERED: KETOROLAC 30 MG/ML VIAL IV PRN (08:31)
[2021-12-09] MEDS ORDERED: VANCOMYCIN HCL 1000MG/20ML VIAL ONE (08:37)
[2021-12-09] MEDS ORDERED: ePHEDrine sulfate 50 MG/ML AMP ONE (09:51)
[2021-12-09] MEDS ORDERED: PHENYLEPHRINE HCL 10 MG/ML VIAL ONE (09:51)
--- NOTE | 2021-12-09 10:40 | Operative Report ---
PG Post Operative Report Pre & Post Diagnosis Operation Date: 12/09/21 08:50 Pre-Op Diagnosis: Right Knee Osteoarthritis Post-Op Diagnosis: Right Knee Osteoarthritis I identified the patient and participated in the time-out.: Yes Procedure Operation Date: 12/09/21 08:50 Actual Procedures p Right Total Knee Replacement(Right) - Zeeshan Martini MD Surgeon Zeeshan Martini MD Undercover Agent Hermilo Ugalde PA-C Estimated Blood Loss 50 Findings Consistent with Post-Op Diagnosis Operative findings real advanced right knee DJD. He extensive grade 4 [id number] disease the medial and patellofemoral compartments. The data varus deformity to his knee. Slight flexion contracture of 10 degrees. Moderate- sized joint effusion. Fluids 1000 cc Specimens Right knee sent for pathology Anesthesia Type Spinal MAC Complications none Disposition Accompanied Patient To Recovery: No Indications Patient is an 81-year-old fairly healthy gentleman is had a long history of rig ht knee problems. He had an open meniscectomy back in the 70s. Over the past several years he developed increased pain discomfort in his knee. Failed conservative measures. X-rays show advanced knee DJD. He elected with surgical treatment. Description of Procedure Operative implants consist of: 1 Biomet Vanguard size 72.5 right posterior stabilized femoral component. 2. Biomet size 79 tibial tray. 3. 10 mm posterior stabilized polyethylene insert. 4. 31 x 8 all polypatella. The patient was taken to the operating, identified, and placed on the operating table supine position protectors were properly padded. IV antibiotics arrived by anesthesia team. A spinal anesthetic and been implemented holding area. Tovar catheter was placed in sterile fashion. Right thigh turn was then placed in the right lower extremities and prepped and draped in usual sterile fashion. The right leg was elevated exsanguinated with use of an Esmarch in terms playset 300 mmHg. An anterior approach of the right knee was then performed to longitudinal incision centered over the patella. Sharp dissection was carried through subcutaneous tissue down the extensor mechanism. A medial parapatellar arthrotomy incision was made. Some subperiosteal dissection was carried out medially. The fat pad was resected from each patella tendon. The lateral pa tellofemoral ligament was released. Patella subluxated laterally and the knee was flexed. The osteophytes were taken off distal femur. The ACL and PCL were then released from distal femur and the tibia subluxated anteriorly. The external tibial alignment jig was then placed in the interface the tibia and adjusted 14 mm medially. Proximal tibial cut was made remove about a millimeter bone from the most deficient aspect of the medial tibial plateau. The tibia was then sized to a size 79. Attention drawn the femur. The distal femur there was a sharp drop with intramedullary canal was suction. A right 6 degree valgus cutting guide was placed. This femoral cutting block was pinned in place but distal femoral cut was made to take an additional 3 mm bone off distal femur. The femur was then sized to a size 72.5. The AP cutting block was pinned parallel to the epicondylar axis which was 3 degrees of external rotation. Anterior cut, anterior chamfer, posterior cut, posterior chamfer cuts were made. The box cutting guide was placed in just slight lateral box cut was made. The knee was flexed. The remnants of the medial and lateral menisci were excised. The osteophytes taken off the posterior aspect of femur. A trial femoral component was placed. The tibial tray was pinned in maximum external rotation and the drill and stem punch were used to create defect in proximal tibia for the tibial tray. Knee was then trialed and 10 mm insert fit most appropriately. Attention drawn the patella. The patella was cleaned of all soft tissue. Patella thickness measured 23 mm in thickness was cut down to 14. Was sized to a size 31 patella. The lug holes were drilled for the 31 patella. The lateral osteophyte was removed. Patella button was placed. Knee was taken through range of motion patella tracked nicely with no thumbs test. Attention drawn to place the permanent components. All trial components were removed. Bone plug was placed in the distal femur limit blood loss. Double batch Palacos G cement was mixed. I did add an additional gram of vancomycin due to his history of open surgery in the past. A Biomet Vanguard size 72.5 right posterior stabilized femoral component, size 79 tibial tray, a 10 mm posterior stabilized polyethylene insert, and a 31 x 8 all polypatella were then cemented in place. Knee was brought out into full extension total cement hardened. Final symmetric check was then performed. The pericapsular tissues were injected with total of 100 cc of combination of 20 cc of Exparel, 30 cc normal saline, 50 cc of quarter percent Marcaine with epinephrine. Patient did receive 1 g tranexamic acid. The tourniquet was then let down for final turn time 55 minutes. Hemostasis assured use electrocautery. Extensor mechanism closed with combination 1 PDS suture #1 Vicryl suture in a cavdyv-ri-vqicy fashion. Extensor mechanism checked found to be intact with subcutaneous tissue then closed with 2 Dexon suture in buried interrupted fashion the skin was closed skin gordon. Leg was then cleaned and dried a sterile dressing was Xeroform, 4 x 4's, sterile cast padding, Nas bandage were applied. Patient then transferred to the recovery room in stable condition. Patient tolerated procedure well and there were no complications. Hermilo Ugalde, my physician maintenance assistant, was present for the entire procedure. His assistance was essential and required for appropriate patient positioning, prepping and draping, surgical exposure, performing the technical details of the operation, placement the implants, closure of the wound, and placement of the sterile bandage. I attest to the content of the Intraoperative Record and any orders documented therein. Any exceptions are noted below.
--- NOTE | 2021-12-09 10:58 | XRay Report ---
RIGHT KNEE 2 VIEWS History: Right total knee arthroplasty. Degenerative arthritis. Postop. FINDINGS: The patient is status post a right total knee arthroplasty. The hardware is intact. No frac ture or dislocation. Skin gordon are in place. IMPRESSION: Right total knee arthroplasty. No evidence for hardware complication. ACT 112: Negative or not required by law. Electronically signed by: Darius Quinones M.D. 12/09/2021 10:56 AM
[2021-12-09] MEDS ORDERED: bisacodyL 10 MG SUPP PR PRN (11:35)
[2021-12-09] MEDS ORDERED: DEXTROSE 50% 50 ML SYRINGE IV PRN (11:35)
[2021-12-09] MEDS ORDERED: ALUMINUM/MAGNESIUM SUSP 30 ML UDC PO PRN (11:35)
[2021-12-09] MEDS ORDERED: MAGNESIUM HYDROXIDE SUSP 30 ML UDC PO PRN (11:35)
[2021-12-09] MEDS ORDERED: NALOXONE HCL 0.4 MG/1 ML VIAL/CARP IV PRN (11:35)
[2021-12-09] MEDS ORDERED: oxyCODONE HCL IR 5 MG TAB (IMMEDIATE RELEASE) PO PRN (11:35)
[2021-12-09] MEDS ORDERED: GLUCAGON FOR INJ 1 MG VIAL SQ PRN (11:35)
[2021-12-09] MEDS ORDERED: PHARMACY GLYCEMIC MGMT CONSULT PRN (11:35)
[2021-12-09] MEDS ORDERED: METOCLOPRAMIDE HCL INJ 5 MG/ML 2 ML VIAL IV PRN (11:35)
[2021-12-09] MEDS ORDERED: HYDROmorphone INJ 0.5 MG/0.5 ML SYR IV PRN (11:35)
[2021-12-09] MEDS ORDERED: CARBOHYDRATES FOR HYPOGLYCEMIA PO PRN (11:35)
[2021-12-09] MEDS ORDERED: GLUCOSE 10 TABS/TUBE PO PRN (11:35)
[2021-12-09] MEDS ORDERED: GLUCOSE 40% GEL 15 GM TUBE PO PRN (11:35)
[2021-12-09] MEDS: SODIUM CHLORIDE 0.9% 1000ML 1,000 ML IV SCH ×2 (11:53→22:24)
--- NOTE | 2021-12-09 12:28 | Pharmacy Report ---
Pharmacy Glycemic Short Note 2 - Date of Service December 09, 2021 - Glycemic Short BSG Results (Last 24 hours): 12/09/21 12/09/21 06:42 12:02 POC Glucose 133 H 136 H OUTPATIENT ANTIDIABETIC REGIMEN: * Metformin 500 mg PO BID * A1c = 6.8% - 11/11/21 ASSESSMENT: * Rodrigue is a 81 yo T2DM POD #0 s/p right total knee arthroplasty * Will start novolog SQ ACHS based on weight and stress of 2. * I do not anticipate patient will require basal insulin. * Plan to resume metformin in AM if patient is tolerating an oral diet and renal function is acceptable. PLAN FOR INPATIENT GLYCEMIC CONTROL: * Hold outpatient oral diabetes medications * Basal insulin * none * Bolus insulin * NovoLog per scale ACHS or Q6hrs while NPO * Goal Range: Low 110 mg/dL - High 140 mg/dL * Correction Factor: 25 mg/dL/unit * Nutritional / Prandial insulin per carb ratio of 1 unit per 8 grams CHO consumed
--- NOTE | 2021-12-09 12:37 | Anesthesiology Progress Note ---
Date of Service December 09, 2021 Anesthesia Post Procedure Vital Signs Vital Signs: Temp Pulse Pulse Resp BP BP Pulse Ox 12/09/21 12:34 36.5 C 70 16 118/73 96 12/09/21 12:04 36.4 C L 60 16 100/66 96 12/09/21 11:36 36.5 C 67 17 94/57 L 96 12/09/21 11:20 66 18 114/60 95 12/09/21 11:10 69 16 109/63 96 12/09/21 11:00 36.9 C 70 20 111/60 95 12/09/21 10:50 72 16 101/57 L 94 12/09/21 10:40 76 20 105/60 96 12/09/21 10:32 36.9 C 75 18 89/50 L 97 12/09/21 06:46 36.3 C L 77 20 147/85 H 95 Transfer of Care Handoff Completed per policy Notes Mental Status: alert / awake / arousable Patient Amnestic to Procedure: Yes Nausea / Vomiting: adequately controlled Pain: adequately controlled Airway Patency, RR, SpO2: stable & adequate BP & HR: stable & adequate Hydration State: stable & adequate Anesthetic Complications: no major complications apparent
[2021-12-09] MEDS: INSULIN ASPART PER UNIT SC SCH ×3 (12:46→20:41)
[2021-12-09] MEDS: KETOROLAC TROMETHAMINE 15 MG/ML VIAL IV SCH ×2 (12:53→20:29)
[2021-12-09] MEDS: ACETAMINOPHEN 500 MG TAB PO SCH ×2 (13:56→22:26)
[2021-12-09] MEDS: ceFAZolin 2000MG 2,000 MG/15 ML SYR IV SCH (16:09)
[2021-12-09] MEDS ORDERED: TRANEXAMIC ACID / 0.7% NACL 1,000 MG/100 ML BAG IV SCH (16:30)
[2021-12-09] MEDS: ASCORBIC ACID 500 MG TAB PO SCH (18:00)
[2021-12-09] MEDS: FLUTICASONE PROPIONATE NA SPR 16 GM BTL NAE SCH (20:21)
[2021-12-09] MEDS: DOCUSATE SODIUM 100 MG CAP PO SCH (20:23)
[2021-12-09] MEDS: ASPIRIN 81 MG ECTAB PO SCH (20:24)
[2021-12-09] MEDS: TAPENTADOL HCL ER 50 MG TABCR PO SCH (20:29)
[2021-12-09] MEDS ORDERED: CEROVITE ADV FORMULA TAB PO SCH (21:00)
[2021-12-09] MEDS ORDERED: ATORVASTATIN 10 MG TAB PO SCH (21:00)
[2021-12-09] MEDS ORDERED: TAMSULOSIN HCL 0.4 MG CAP PO SCH (21:00)
[2021-12-09] MEDS ORDERED: SENNA 8.6 MG TAB PO SCH (21:00)
[2021-12-09] MEDS ORDERED: FLUoxetine HCL 20 MG CAP PO SCH (21:00)
[2021-12-09] MEDS ORDERED: LEVOTHYROXINE SODIUM 50 MCG TABLET PO SCH (21:00)
[2021-12-09] MEDS ORDERED: [UNRECOGNIZED DRUG - OTHER] PO SCH (21:00)
[2021-12-09] MEDS ORDERED: PANTOprazole 40 MG TAB PO SCH (21:00)
[2021-12-09] MEDS ORDERED: CHOLECALCIFEROL 1,000 UNITS 25 MCG TAB PO SCH (21:00)
[2021-12-09] MEDS ORDERED: ZINC SULFATE 220 MG CAPSULE PO SCH (21:00)
[2021-12-10] MEDS: ceFAZolin 2000MG 2,000 MG/15 ML SYR IV SCH (01:09)
[2021-12-10] MEDS: KETOROLAC TROMETHAMINE 15 MG/ML VIAL IV SCH ×3 (01:09→13:04)
[2021-12-10] MEDS: ACETAMINOPHEN 500 MG TAB PO SCH ×2 (05:51→13:04)
[2021-12-10 06:31] LABS: Hematocrit (blood only) 36.7 % (42-52); Hemoglobin 12.6 g/dL (14.0-18.0); Mean Corpuscular Hgb Conc 34.3 g/dL (32-36); Mean Corpuscular Volume 90.4 fL (80-100); Mean Platelet Volume 8.9 fL (7.4-10.4); Platelet Count 312 K/uL (130-400); RDW Coefficient of Variation 13.6 % (11.5-14.5); RDW Standard Deviation 44.9 fL (36.4-46.3); Red Blood Count 4.06 M/uL (4.7-6.1); White Blood Count 10.31 K/uL (4.8-10.8)
[2021-12-10 07:03] LABS: BUN Creatinine Ratio 13.2 (10-20); Creatinine Clr Calc Pharmacy 84.6 ml/min; Est GFR (African American) 97.8 ml/min; Est GFR (Non-African American) 84.4 ml/min; Potassium 4.2 mmol/L (3.5-5.1)
[2021-12-10] MEDS ORDERED: metFORMIN HCL 500 MG TAB PO SCH (08:00)
[2021-12-10] MEDS: FLUTICASONE PROPIONATE NA SPR 16 GM BTL NAE SCH (08:30)
[2021-12-10] MEDS: INSULIN ASPART PER UNIT SC SCH ×2 (08:35→13:04)
[2021-12-10] MEDS: ASCORBIC ACID 500 MG TAB PO SCH (08:35)
[2021-12-10] MEDS: TAPENTADOL HCL ER 50 MG TABCR PO SCH (08:35)
[2021-12-10] MEDS: ASPIRIN 81 MG ECTAB PO SCH (08:36)
[2021-12-10] MEDS: DOCUSATE SODIUM 100 MG CAP PO SCH (08:36)
[2021-12-10] MEDS ORDERED: DOCUSATE SODIUM/SENNA 50/8.6MG TAB PO SCH (09:00)
[2021-12-10] MEDS ORDERED: MULTIVITAMIN TAB PO SCH (09:00)
[2021-12-10] MEDS ORDERED: GLUCOSAMINE SULFATE 500 MG CAP PO SCH (09:00)
[2021-12-10] MEDS ORDERED: ADVANCED PROBIOTIC 1250 MG CAPSULE PO SCH (09:00)
--- NOTE | 2021-12-10 21:04 | Progress Notes ---
DATE OF SERVICE: 12/10/2021. SUBJECTIVE: An 81-year-old gentleman now postoperative day 1 from a right knee replacement. He is d oing pretty well. Therapy went well. His pain is controlled. No chest pain or shortness of breath. Not feeling dizzy or lightheaded. Hoping to go home. OBJECTIVE: VITAL SIGNS: Temperature is 36.8. Vital signs are stable. PHYSICAL EXAMINATION: GENERAL: Shows a pleasant middle-aged male. He is lying in bed, looks pretty comfortable this after noon. LUNGS: Clear to auscultation. HEART: Regular rate and rhythm. ABDOMEN: Soft, nontender, nondistended. EXTREMITIES: Grossly neurovascularly intact except as follows: Examination of the right leg reveals the dressing to be clean, dry and intact. Leg is well aligned. He can do a straight leg raise with some effort. He can dorsiflex and plantarflex his foot appropriately. He is neurologically intact. LABORATORY DATA: Hemoglobin 12.6. Hematocrit 36.7. Electrolytes are stable. ASSESSMENT: An 81-year-old gentleman, postoperative day 1 from right knee replacement, doing pretty well. Therapy went well. His pain is controlled. PLAN: 1. DVT prophylaxis including thigh-high TEDs, SCDs, and aspirin twice a day. 2. PT, OT, weightbear as tolerated. Right total knee protocol. 3. Pain control, doing okay with current pain regimen. 4. Disposition: Plan to discharge to home with some home health today. Job ID: [id number]
--- NOTE | 2021-12-11 14:13 | Discharge Summary ---
Date of Service December 11, 2021 Discharge Data Procedures Performed Operation Date: 12/09/21 08:50 Actual Procedures p Right Total Knee Replacement(Right) - Zeeshan Martini MD Hospital Course (1) Status post total right knee replacement: This patient is a 81 year old male admitted on 12/09/21 and underwent total knee arthroplasty. He tolerated the procedure well and there were no complications. Transferred to the PACU post op and later to the orthopedic floor for further care. He was given ancef for antibiotic prophylaxis. He was also given ATIYA stockings, SCDs, and aspirin for DVT prophylaxis. Hemoglobin, hematocrit, and vital signs were monitored during his hospital stay and remained stable. Did not require any blood transfusions. There were no complications during his hospital stay. By post op day #1 the patient was tolerating a diabetic diet, pain was reasonably controlled with oral pain medicine, and she was participating in physical therapy. On post op day #1 the patient was discharged home and set up with home health care. He was given printed discharge instructions including prescriptions for extra strength tylenol, aspirin, zofran, toradol, flomax, and oxycodone. Continue physical therapy, weight bearing as tolerated. Continue ATIYA stockings. Follow up approximately 2 weeks post op or sooner if there are problems or concerns. Coding Level of Care Code None Diagnoses Status post total right knee replacement Z96.651
== END 2021-12-10 14:25 | disposition home health service (06) ==
LOC: ASU 06:24 → 3E 06:24

== ENCOUNTER 2023-08-23 19:53 | Inpatient (IN) ==
[2023-08-23] MEDS ORDERED: fentaNYL citrate PF 100 MCG/2 ML VIAL IV STA ×2 (20:14→21:24)
--- NOTE | 2023-08-23 20:21 | Emergency Department Note ---
Impression & Plan Fall from standing, Periprosthetic fracture of knee, Fracture of distal end of fibula ED Provider Note HISTORY OF PRESENT ILLNESS: Patient is an 82-year-old male presenting with right shoulder pain and right knee pain. Patient reports he was walking when he slipped on black ice and landed directly on his right knee and then on his right shoulder. Denies striking his head or loss of consciousness. He is not on any anticoagulation. He denies any chest pain, shortness of breath or dizziness prior to the fall. He denies any pelvis pain or chest pain or shortness of breath currently. He is currently complaining of pain in his right knee. He has a history of a right knee arthroplasty done a year ago. ROS: as above PHYSICAL EXAM: Constitutional: Patient appears in no acute distress. HENT: Head: Normocephalic and atraumatic. Eyes: EOMI, PERRL Mouth/Throat: Mucous membranes moist. Neck: Trachea midline. Neck supple. Cardiovascular: RRR, No murmurs, rubs or gallops. Intact distal pulses. Pulmonary/Chest: No respiratory distress. Breath sounds clear and equal bilaterally. No wheezes or rales. No chest wall tenderness to palpation. Abdominal: Abdomen soft, no tenderness, rebound or guarding. Musculoskeletal: - RUE: No obvious deformity or open wounds. No significant ecchymosis. Patient is able to flex and extend at the elbow and flex and extend at the wrist without difficulties. Able to give thumbs up, okay sign and cross fingers. No significant tenderness to palpation to the proximal humerus, but patient is unable to fully lift the right arm secondary to pain. - RLE: Patient has obvious deformity to the proximal right knee. Intact DP and PT pulses. Able to dorsiflex and plantarflex the ankle, but he does have tenderness to palpation along the lateral malleolus. Able to wiggle the toes. Unable to range the knee secondary to pain. I am able to passively flex and extend at the hip, but patient complains of pain in the knee. He does have some diffuse tenderness and swelling to the proximal knee. No open wounds. Skin: Warm and dry. No rash, erythema, pallor or cyanosis Psychiatric: Appropriate mood and affect for situation. Neurological: Alert and keenly responsive. CN II-XII grossly intact MDM: - Vitals signs stable. - History obtained via patient. Patient presents with right knee pain and right shoulder pain. Patient reports he was walking when he slipped on black ice and fell, landing on his right knee and right shoulder. Denies striking his head or loss of conscious. He is not on any anticoagulation. Currently complaining of pain in the right knee and right shoulder. - Chronic conditions affecting care: GERD; hypothyroidism; HLD; HTN; BPH - Differential diagnoses include, but are not limited to: femur fracture; knee fracture; knee dislocation; humeral fracture; humerus dislocation - Order placed for continuous cardiac monitoring. At this time, monitor showed rate of 75 bpm with normal sinus rhythm, per my interpretation. - External medical records reviewed. Operative report from 12/09/2021 was reviewed. Patient had a right total knee replacement secondary to right knee osteoarthritis. Surgery was performed by Dr. Martini with [facility] orthopedics. - EKG interpreted by myself showed normal sinus rhythm. Rate 80 bpm. QTc 399. No acute ischemic changes - Xray of right knee shows distal femur fracture around the knee prosthesis, per my interpretation. X-ray of the right ankle shows a distal fibular fracture, per my interpretation - Patient was given 50 mcg IV fentanyl for pain control prior to obtaining xrays. - Patient's knee was placed in a long knee immobilizer, applied by myself and a tech. We then splinted the patient's ankle with orthoglass with an ankle stirrup and posterior slab. - Discussed case with orthopedist on-call, Dr. Martini. He agreed with the knee immobilizer placement and splinting of the ankle. Requested patient be n.p.o. after midnight with plan for surgery tomorrow or potentially the next day. - Patient given 50 mcg IV fentanyl just prior to splint placement. - Laboratory workup interpreted by myself showed slight leukocytosis (WBC 16.12); stable electrolytes; normal troponin - Preoperative CXR negative for obvious pneumonia, per my interpretation - Discussion was had with assistant child care teacher about patient's case and need for admission - Hospitalist consulted for admission - [facility] PROCEDURE: Splinting Indication: distal fibular fracture Verbal consent obtained. Risks and benefits were explained with the usual customary discussion. The injured extremity was identified. The patient was prepped and measured for the placement of a ankle stirrup and posterior slab ortho-glass splint. Splint applied in the standard fashion over a layer of webril and secured using an elastic bandage. Set into a position of function. Normal neurovascular status after placement verified by me. The patient tolerated the procedure well and the care of the splint was discussed with the patient/family. No complications. ASSESSMENT AND PLAN: Diagnosis: fall from standing; right periprosthetic knee fracture; right distal fibula fracture Plan: Admit Past Med/Surg History Medical History (Updated 08/23/23 @ 22:27 by Allyssa Benitez MD) Chronic rhinitis Mild persistent asthma GERD (gastroesophageal reflux disease) History of necrotising fasciitis Occurred around 2013 - initially started in buttocks area with abscess- had extensive surgery to remove No issues since that time Encounter for pre-operative examination History of kidney stones No recent issues Prediabetes Hgb A1C 6.8 on 11/11/21 (pt in DM range) Hypothyroidism Macular degeneration Hyperlipidemia Left arm pain Neck pain Subdural hematoma S/P FALLING 2014 (NO INTERVENTION NEEDED) No current issues HTN (hypertension) BPH (benign prostatic hypertrophy) Surgical History History of surgery perirectal abscess History of hernia repair (~10/04/20) @ [facility] History of reversal of ileostomy History of arthroscopy of left shoulder (~02/21/20) @ [facility], [place] Hx of transurethral resection of prostate History of colonoscopy History of herniorrhaphy H/O eye surgery RT RETINA REPAIR History of colon resection hx of ileostomy--reversal done Family History Mother Family history of diabetes mellitus Breast cancer Diabetes Sister Breast cancer Brother Diabetes Other Family history non-contributory No family history of adverse response to anesthesia Denies family history of Ovarian cancer Prostate cancer Myocardial infarction Colorectal cancer Hypertension Social History Smoking Status: Current every day smoker Second Hand Exposure: No; Do You Dip or Chew Tobacco: No; Hx Alcohol Use: No Hx Substance Use: No Preferred Language: Bermudian Communication Ability: Effective Visual Impairment: Limited Hearing Ability: Use of Hearing Aid Clin Asst Required: No Beliefs That Will Affect Care: None marital status: Current Living Situation: Spouse current occupational status: retired How many Children do You have: 3 Feels Safe at Home: Yes Childhood Exposure to Second-Hand Smoke: Yes Diet: regular caffeine: Yes (coffee ) during the past year weight has: remained stable Dental Care, Regularly: Yes Physical Activity Frequency: Does not Exercise Seatbelt Use: always Sunscreen Use: No Assistive Devices: Glasses, Hearing Aid - Right and Walker Allergies Allergies Allergy/AdvReac Type Severity Reaction Status Date / Time No Known Allergies Allergy None Verified 08/23/23 21:14 Home Meds Home Medications Medication Instructions Recorded Confirmed Focus Eye Vitamins 1 tab PO BID 10/03/18 08/23/23 cholecalciferol (vitamin D3) 25 1,000 unit PO HS 10/03/18 08/23/23 mcg (1,000 unit) capsule (Vitamin D3) glucosamine sulfate 500 mg tablet 1,000 mg PO QAM 10/03/18 08/23/23 (Glucosamine) [id number] 300 mcg-K 60 1 tab PO HS 10/03/18 08/23/23 mcg-lycop 600 mcg-lutein 300 mcg tablet (Centrum Silver Men) zinc 50 mg tablet 50 mg PO HS 04/14/20 08/23/23 lactobacillus combination no.4 3 3,000 mmu cells PO QAM 04/29/21 08/23/23 billion cell capsule (Probiotic) albuterol sulfate 90 mcg/actuation 2 puff inhalation Q6 PRN Shortness 08/23/23 08/23/23 aerosol inhaler Of Breath Or Wheezing chlorpheniramine maleate 4 mg 4 mg PO Q12H PRN Allergy Symptoms 08/23/23 08/23/23 tablet (Allergy Relief (chlorpheniramine)) fluticasone propionate 50 1 spray intranasal BID PRN Nasal 08/23/23 08/23/23 mcg/actuation nasal Congestion spray,suspension (Flonase Allergy Relief) Previous Rx's Medication Instructions Recorded pantoprazole 40 mg tablet,delayed 40 mg PO BID #60 tabs 07/22/22 release fluoxetine 20 mg capsule (Prozac) 20 mg PO HS #90 caps 12/04/22 levothyroxine 50 mcg capsule 50 mcg PO DAILY #90 caps 01/20/23 pseudoephedrine HCl 120 mg 120 mg PO BID 30 days #60 tabs 02/04/23 tablet,extended release (Sudafed 12 Hour) tamsulosin 0.4 mg capsule 0.4 mg PO HS #90 caps 03/10/23 albuterol sulfate 90 mcg/actuation 2 puff inhalation Q6H PRN 04/22/23 aerosol inhaler shortness of breath or wheezing #8.5 grams gabapentin 100 mg capsule 100 mg PO BID PRN cough #60 caps 05/31/23 atorvastatin 10 mg tablet 10 mg PO DAILY #30 tabs 07/19/23 metformin 750 mg tablet,extended 750 mg PO BID #180 tabs 07/23/23 release 24 hr azelastine 137 mcg (0.1 %) nasal 2 spray intranasal BID PRN nasal 08/12/23 spray aerosol congestion #30 mL ipratropium bromide 21 mcg (0.03 2 spray intranasal TID PRN 08/12/23 %) nasal spray postnasal drip #30 mL Results & Data (ED) Vital Signs Vital Signs - 24 hr 08/23/23 20:03 08/23/23 22:00 Temperature 36.8 C Temperature Source Oral Pulse Rate 74 Pulse Rate [Right Finger] 72 Respiratory Rate 16 16 Respiratory Effort / Characteristics Non-Labored Spontaneous Non-Labored Spontaneous Respiratory Depth Normal Normal Respiratory Pattern Regular Regular Blood Pressure 124/71 Blood Pressure [Right Arm] 143/97 H Blood Pressure Mean 88 Blood Pressure Mean [Right Arm] 112 Pulse Oximetry 92 95 Oxygen Delivery Method Room Air Room Air Sepsis Recent Fever Within 48 Hours No Sepsis New/Unexplained Change in Mental Status No Sepsis Action Taken by Nursing No Action Required Laboratory Data 08/23/23 21:40 08/23/23 21:40 Lab Results 08/23/23 Range/Units 21:40 WBC 16.12 H (4.8-10.8) K/ul RBC 4.65 L (4.70-6.10) M/uL Hgb 14.3 (14.0-18.0) g/dl Hct 42.0 (42.0-52.0) % MCV 90.3 (80.0-100.0) fL MCH 30.8 (25.0-34.0) pg MCHC 34.0 (32.0-36.0) g/dL RDW Std Deviation 42.2 (36.4-46.3) fL RDW Coeff of Zahraa 12.9 (11.5-14.5) % Plt Count 348 (130-400) K/uL MPV 8.7 L (9.4-12.4) fL Immature Gran % (Auto) 0.4 % Neut % (Auto) 84.5 % Lymph % (Auto) 9.7 % [place] % (Auto) 4.8 % Eos % (Auto) 0.2 % Baso % (Auto) 0.4 % Neut # (Auto) 13.59 H (1.40-6.50) K/uL Lymph # (Auto) 1.57 (1.20-3.40) K/uL [place] # (Auto) 0.78 H (0.11-0.59) K/uL Eos # (Auto) 0.04 (0.00-0.50) K/uL Baso # (Auto) 0.07 (0.00-0.20) K/uL Immature Gran # (Auto) 0.07 (0.01-0.20) K/uL Sodium 138 (136-145) mmol/L Potassium 4.2 (3.5-5.1) mmol/L Chloride 106 (98-107) mmol/L Carbon Dioxide 24 (21-32) mmol/L Anion Gap 8 (3-11) BUN 18 (6-23) mg/dl Creatinine 1.02 (0.6-1.4) mg/dl Est Cr Clr Drug Dosing 64.3 ml/min Est GFR ( Amer) 77.9 ml/min Est GFR (Non-Af Amer) 67.2 ml/min BUN/Creatinine Ratio 17.6 (10-20) Glucose 179 H (70-99(Fasting)) mg/dl Calcium 9.0 (8.6-10.3) mg/dl Total Bilirubin 0.3 (0.2-1.0) mg/dl AST 14 (13-39) U/L ALT 11 (7-52) U/L Alkaline Phosphatase 68 (34-104) U/L Troponin I High Sens 4.1 (0-20) pg/ml Total Protein 7.2 (6.0-8.3) gm/dl Albumin 4.5 (3.4-5.0) gm/dl Globulin 2.7 (2.5-4.0) gm/dl Albumin/Globulin Ratio 1.7 (0.9-2) Administered Medications Discontinued Medications Fentanyl Citrate (Fentanyl Citrate Pf 100 Mcg/2 Ml Vial) 50 mcg IV NOW STA Stop: 08/23/23 20:15 Last Admin: 08/23/23 20:28 Dose: 50 mcg Documented By: [email or web address] Fentanyl Citrate (Fentanyl Citrate Pf 100 Mcg/2 Ml Vial) 50 mcg IV NOW STA Stop: 08/23/23 21:25 Last Admin: 08/23/23 21:52 Dose: 50 mcg Documented By: [email or web address] Discharge Plan Visit Data Chief Complaint: Knee Injury/Pain Stated Complaint: R KNEE PAIN, FELL ON ICE ED Provider: Allyssa Benitez Discharge Problem: Fall from standing, Periprosthetic fracture of knee, Fracture of distal end of fibula Forms Stand Alone Forms: [facility] [place] [employer] Prescriptions Prescriptions: No Action fluoxetine [Prozac] 20 mg capsule 20 mg PO HS Qty: 90 3RF atorvastatin 10 mg tablet 10 mg PO DAILY Qty: 30 11RF tamsulosin 0.4 mg capsule 0.4 mg PO HS Qty: 90 3RF levothyroxine 50 mcg capsule 50 mcg PO DAILY Qty: 90 3RF metformin 750 mg tablet extended release 24 hr 750 mg PO BID Qty: 180 3RF pseudoephedrine HCl [Sudafed 12 Hour] 120 mg tablet extended release 120 mg PO BID 30 Days Qty: 60 3RF pantoprazole 40 mg tablet,delayed release (DR/EC) 40 mg PO BID Qty: 60 11RF Probiotic 3 billion cell capsule 3,000 mmu cells PO QAM Rx Instructions: administer with a meal albuterol sulfate 90 mcg/actuation HFA aerosol inhaler 2 puff inhalation Q6H PRN (Reason: shortness of breath or wheezing) Qty: 8.5 3RF gabapentin 100 mg capsule 100 mg PO BID PRN (Reason: cough) Qty: 60 2RF azelastine 137 mcg (0.1 %) aerosol,spray 2 spray intranasal BID PRN (Reason: nasal congestion) Qty: 30 11RF Rx Instructions: administer into each nostril ipratropium bromide 21 mcg (0.03 %) spray,non-aerosol 2 spray intranasal TID PRN (Reason: postnasal drip) Qty: 30 11RF Rx Instructions: administer into each nostril zinc 50 mg Tablet 50 mg PO HS glucosamine sulfate [Glucosamine] 500 mg Tablet 1,000 mg PO QAM cholecalciferol (vitamin D3) [Vitamin D3] 1,000 unit Capsule 1,000 unit PO HS Centrum Silver Men 300-600-300 mcg Tablet 1 tab PO HS Focus Eye Vitamins 1 tab PO BID albuterol sulfate 90 mcg/actuation HFA aerosol inhaler 2 puff INHALATION Q6 PRN (Reason: Shortness Of Breath Or Wheezing) chlorpheniramine maleate [Allergy Relief(chlorpheniramn)] 4 mg tablet 4 mg PO Q12H PRN (Reason: Allergy Symptoms) fluticasone propionate [Flonase Allergy Relief] 50 mcg/actuation spray,suspension 1 spray intranasal BID PRN (Reason: Nasal Congestion) Rx Instructions: administer into each nostril Referrals Referrals: Parviz Westfall MD [Primary Care Provider] -
[2023-08-23 22:03] LABS: Basophils # (auto) 0.07 K/uL (0.00-0.20); Basophils % (auto) 0.4 %; Eosinophils # (auto) 0.04 K/uL (0.00-0.50); Eosinophils % (auto) 0.2 %; Hemoglobin 14.3 g/dl (14.0-18.0); Immature Granulocytes # (auto) 0.07 K/uL (0.01-0.20); Immature Granulocytes % (auto) 0.4 %; Lymphocytes # (auto) 1.57 K/uL (1.20-3.40); Lymphocytes % (auto) 9.7 %; Mean Corpuscular Hemoglobin 30.8 pg (25.0-34.0); Mean Corpuscular Volume 90.3 fL (80.0-100.0); Mean Platelet Volume 8.7 fL (9.4-12.4); Monocytes # (auto) 0.78 K/uL (0.11-0.59); Monocytes % (auto) 4.8 %; Neutrophils # (auto) 13.59 K/uL (1.40-6.50); Neutrophils % (auto) 84.5 %; Platelet Count 348 K/uL (130-400); RDW Coefficient of Variation 12.9 % (11.5-14.5); RDW Standard Deviation 42.2 fL (36.4-46.3); Red Blood Count 4.65 M/uL (4.70-6.10); White Blood Count 16.12 K/ul (4.8-10.8)
[2023-08-23 22:10] LABS: Albumin Globulin Ratio 1.7 (0.9-2); Albumin Level 4.5 gm/dl (3.4-5.0); BUN Creatinine Ratio 17.6 (10-20); Bilirubin,Total 0.3 mg/dl (0.2-1.0); Creatinine Clr Calc Pharmacy 64.3 ml/min; Est GFR (African American) 77.9 ml/min; Est GFR (Non-African American) 67.2 ml/min; Globulin 2.7 gm/dl (2.5-4.0); Potassium 4.2 mmol/L (3.5-5.1); Total Protein 7.2 gm/dl (6.0-8.3)
[2023-08-23 22:17] LABS: Troponin I High Sensitivity 4.1 pg/ml (0-20)
[2023-08-23] MEDS ORDERED: FLUoxetine HCL 20 MG CAP PO ONE (23:37)
[2023-08-23] MEDS ORDERED: TAMSULOSIN HCL 0.4 MG CAP PO ONE (23:37)
[2023-08-23] MEDS ORDERED: ZINC SULFATE 220 MG CAPSULE PO ONE (23:38)
[2023-08-23] MEDS ORDERED: PANTOprazole 40 MG TAB PO ONE (23:38)
[2023-08-23] MEDS ORDERED: HYDROmorphone INJ 0.5 MG/0.5 ML SYR IV PRN (23:39)
[2023-08-23] MEDS ORDERED: NALOXONE HCL 0.4 MG/1 ML VIAL/CARP IV PRN (23:39)
--- NOTE | 2023-08-23 23:47 | History & Physical Report ---
Date of Service August 23, 2023 Assessment & Plan (1) Fracture of distal end of fibula: (2) Periprosthetic fracture of knee: (3) Fall from standing: (4) Fall from slipping on ice: (5) Mild persistent asthma: (6) Diabetes: (7) GERD (gastroesophageal reflux disease): (8) Prediabetes: Plan Right knee periprosthetic fracture/slip and fall on ice- N.p.o. after midnight Acetaminophen 650 mg orally every 6 hours as needed for mild pain or fever Dilaudid 0.25 mg IV every 3 hours as needed for moderate pain Dilaudid 0.5 mg IV every 3 hours as needed for severe pain NSS + KCl 20 mill equivalents at 80 mL/h Zofran 4 mg IV every 6 hours as needed Consult to orthopedic surgery Dr. Martini Prediabetes- Hold metformin Placed on Accu-Cheks with NovoLog SSI Mild persistent asthma- Continue home inhalers as needed GERD- Continue pantoprazole History of Present Illness Chief Complaint: The patient presents to the emergency department after a slip and fall on black ice, landing on his right knee and then onto his right shoulder, complaining of pain in both areas, but much worse in the right knee and unable to bear weight Primary Care Provider: Parviz Westfall MD The patient is an 82-year-old male with a past medical history including right total knee arthroplasty, mild persistent asthma, diabetes mellitus, GERD, hypot hyroidism, BPH with LUTS, hyperlipidemia, hypertension and subdural hematoma. He presents to the emergency department with complaint of severe pain in right knee, and unable to bear weight, after a fall on black ice prior to arrival. X- rays in the emergency department showed a periprosthetic distal tibial fracture of the right knee. Patient also reports painful right shoulder, with normal x-rays. He denies any head trauma. Allergies Allergy/AdvReac Type Severity Reaction Status Date / Time No Known Allergies Allergy None Verified 08/23/23 21:14 Home Medications Medication Instructions Recorded Confirmed Type Focus Eye Vitamins 1 tab PO BID 10/03/18 08/23/23 History cholecalciferol (vitamin D3) 25 1,000 unit PO HS 10/03/18 08/23/23 History mcg (1,000 unit) capsule (Vitamin D3) glucosamine sulfate 500 mg tablet 1,000 mg PO QAM 10/03/18 08/23/23 History (Glucosamine) [id number] 300 mcg-K 60 1 tab PO HS 10/03/18 08/23/23 History mcg-lycop 600 mcg-lutein 300 mcg tablet (Centrum Silver Men) zinc 50 mg tablet 50 mg PO HS 04/14/20 08/23/23 History lactobacillus combination no.4 3 3,000 mmu cells PO QAM 04/29/21 08/23/23 History billion cell capsule (Probiotic) pantoprazole 40 mg tablet,delayed 40 mg PO BID #60 tabs 07/22/22 08/23/23 Rx release fluoxetine 20 mg capsule (Prozac) 20 mg PO HS #90 caps 12/04/22 08/23/23 Rx levothyroxine 50 mcg capsule 50 mcg PO DAILY #90 caps 01/20/23 08/23/23 Rx pseudoephedrine HCl 120 mg 120 mg PO BID 30 days #60 tabs 02/04/23 08/23/23 Rx tablet,extended release (Sudafed 12 Hour) tamsulosin 0.4 mg capsule 0.4 mg PO HS #90 caps 03/10/23 08/23/23 Rx albuterol sulfate 90 mcg/actuation 2 puff inhalation Q6H PRN 04/22/23 08/23/23 Rx aerosol inhaler shortness of breath or wheezing #8.5 grams gabapentin 100 mg capsule 100 mg PO BID PRN cough #60 caps 05/31/23 08/23/23 Rx atorvastatin 10 mg tablet 10 mg PO DAILY #30 tabs 07/19/23 08/23/23 Rx metformin 750 mg tablet,extended 750 mg PO BID #180 tabs 07/23/23 08/23/23 Rx release 24 hr azelastine 137 mcg (0.1 %) nasal 2 spray intranasal BID PRN nasal 08/12/23 08/23/23 Rx spray aerosol congestion #30 mL ipratropium bromide 21 mcg (0.03 2 spray intranasal TID PRN 08/12/23 08/23/23 Rx %) nasal spray postnasal drip #30 mL albuterol sulfate 90 mcg/actuation 2 puff inhalation Q6 PRN Shortness 08/23/23 08/23/23 History aerosol inhaler Of Breath Or Wheezing chlorpheniramine maleate 4 mg 4 mg PO Q12H PRN Allergy Symptoms 08/23/23 08/23/23 History tablet (Allergy Relief (chlorpheniramine)) fluticasone propionate 50 1 spray intranasal BID PRN Nasal 08/23/23 08/23/23 History mcg/actuation nasal Congestion spray,suspension (Flonase Allergy Relief) Past Med/Surg History Medical History (Updated 08/24/23 @ 03:58 by Loki Kerr MD) Chronic rhinitis Mild persistent asthma GERD (gastroesophageal reflux disease) History of necrotising fasciitis Occurred around 2013 - initially started in buttocks area with abscess- had extensive surgery to remove No issues since that time Encounter for pre-operative examination History of kidney stones No recent issues Prediabetes Hgb A1C 6.8 on 11/11/21 (pt in DM range) Hypothyroidism Macular degeneration Hyperlipidemia Left arm pain Neck pain Subdural hematoma S/P FALLING 2014 (NO INTERVENTION NEEDED) No current issues HTN (hypertension) BPH (benign prostatic hypertrophy) Surgical History History of surgery perirectal abscess History of hernia repair (~10/04/20) @ [facility] History of reversal of ileostomy History of arthroscopy of left shoulder (~02/21/20) @ [facility] Hx of transurethral resection of prostate History of colonoscopy History of herniorrhaphy H/O eye surgery RT RETINA REPAIR History of colon resection hx of ileostomy--reversal done Family History Mother Family history of diabetes mellitus Breast cancer Diabetes Sister Breast cancer Brother Diabetes Other Family history non-contributory No family history of adverse response to anesthesia Denies family history of Ovarian cancer Prostate cancer Myocardial infarction Colorectal cancer Hypertension Social History Smoking Status: Never smoker Second Hand Exposure: No; Do You Dip or Chew Tobacco: No; Hx Alcohol Use: No Hx Substance Use: No Preferred Language: Syriac Communication Ability: Effective Visual Impairment: Limited Hearing Ability: Use of Hearing Aid Top Spotter Required: No Beliefs That Will Affect Care: None marital status: Current Living Situation: Spouse current occupational status: retired How many Children do You have: 3 Feels Safe at Home: Yes Childhood Exposure to Second-Hand Smoke: Yes Diet: regular caffeine: Yes (coffee ) during the past year weight has: remained stable Dental Care, Regularly: Yes Physical Activity Frequency: Does not Exercise Seatbelt Use: always Sunscreen Use: No Assistive Devices: Glasses Review of Systems Review of Systems: The patient denies chest pain, palpitations, shortness of breath, dyspnea on exertion, cough, lower extremity swelling, sore throat, fevers, chills, sweats, weight change, fatigue, nausea, vomiting, diarrhea , constipation, abdominal pain, pelvic pain, blood in urine or stool, dysuria, urinary frequency or urgency, lightheadedness, dizziness, headache, memory loss, loss of consciousness, rash, abnormal bruising or bleeding, focal or generalized weakness, numbness or tingling in left arm or leg, generalized arthralgias or myalgias, back or neck pain, or night sweats. The review of systems is otherwise negative other than for that already noted above, and at least 10 systems have been reviewed. Physical Exam Physical Exam: The patient is awake, alert and oriented 3, well developed and well nourished, normocephalic and atraumatic, lying in bed and in moderate distress due to right knee pain HEENT--PERRL, EOMI, mucous membranes and oropharynx normal Neck--supple. No JVD. No bruits. Thyroid normal, trachea midline, no adenopathy. Heart--normal S1 and S2. No murmurs, rubs or gallops. Lungs--clear bilaterally, no respiratory distress, no accessory muscle use. Abdomen--normal bowel sounds and soft. Nontender. Nondistended. Obese Extremities--right lower extremity in knee immobilizer Dermatologic--normal skin turgor, normal color, no abnormal lymph nodes, no rash. Neurologic--cranial nerves II through XII grossly intact. Rheumatologic--limited exam Psychiatric--normal affect. Results & Data Results & Data Vital Signs (Past 12 Hours) Vital Signs Temp Pulse Pulse Resp BP BP Pulse Ox 08/23/23 22:00 72 16 143/97 H 95 08/23/23 20:03 36.8 C 74 16 124/71 92 O2 Del Method 08/23/23 22:00 Room Air 08/23/23 20:03 Room Air Laboratory Results Laboratory Results WBC 16.12 K/ul (4.8-10.8) H 08/23/23 21:40 RBC 4.65 M/uL (4.70-6.10) L 08/23/23 21:40 Hgb 14.3 g/dl (14.0-18.0) 08/23/23 21:40 Hct 42.0 % (42.0-52.0) 08/23/23 21:40 MCV 90.3 fL (80.0-100.0) 08/23/23 21:40 MCH 30.8 pg (25.0-34.0) 08/23/23 21:40 MCHC 34.0 g/dL (32.0-36.0) 08/23/23:40 RDW Std Deviation 42.2 fL (36.4-46.3) 08/23/23:40 RDW Coeff of Zahraa 12.9 % (11.5-14.5) 08/23/23 21:40 Plt Count 348 K/uL (130-400) 08/23/23 21:40 MPV 8.7 fL (9.4-12.4) L 08/23/23 21:40 Immature Gran % (Auto) 0.4 % 08/23/23 21:40 Neut % (Auto) 84.5 % 08/23/23 21:40 Lymph % (Auto) 9.7 % 08/23/23 21:40 [place] % (Auto) 4.8 % 08/23/23 21:40 Eos % (Auto) 0.2 % 08/23/23 21:40 Baso % (Auto) 0.4 % 08/23/23 21:40 Neut # (Auto) 13.59 K/uL (1.40-6.50) H 08/23/23 21:40 Lymph # (Auto) 1.57 K/uL (1.20-3.40) 08/23/23 21:40 [place] # (Auto) 0.78 K/uL (0.11-0.59) H 08/23/23 21:40 Eos # (Auto) 0.04 K/uL (0.00-0.50) 08/23/23 21:40 Baso # (Auto) 0.07 K/uL (0.00-0.20) 08/23/23 21:40 Immature Gran # (Auto) 0.07 K/uL (0.01-0.20) 08/23/23 21:40 Sodium 138 mmol/L (136-145) 08/23/23 21:40 Potassium 4.2 mmol/L (3.5-5.1) 08/23/23 21:40 Chloride 106 mmol/L (98-107) 08/23/23 21:40 Carbon Dioxide 24 mmol/L (21-32) 08/23/23 21:40 Anion Gap 8 (3-11) 08/23/23 21:40 BUN 18 mg/dl (6-23) 08/23/23 21:40 Creatinine 1.02 mg/dl (0.6-1.4) 08/23/23 21:40 Est Cr Clr Drug Dosing 64.3 ml/min 08/23/23 21:40 Est GFR ( Amer) 77.9 ml/min 08/23/23 21:40 Est GFR (Non-Af Amer) 67.2 ml/min 08/23/23 21:40 BUN/Creatinine Ratio 17.6 (10-20) 08/23/23 21:40 Glucose 179 mg/dl (70-99(Fasting)) H 08/23/23 21:40 Calcium 9.0 mg/dl (8.6-10.3) 08/23/23 21:40 Total Bilirubin 0.3 mg/dl (0.2-1.0) 08/23/23 21:40 AST 14 U/L (13-39) 08/23/23 21:40 ALT 11 U/L (7-52) 08/23/23 21:40 Alkaline Phosphatase 68 U/L (34-104) 08/23/23 21:40 Troponin I High Sens 4.1 pg/ml (0-20) 08/23/23 21:40 Total Protein 7.2 gm/dl (6.0-8.3) 08/23/23 21:40 Albumin 4.5 gm/dl (3.4-5.0) 08/23/23 21:40 Globulin 2.7 gm/dl (2.5-4.0) 08/23/23 21:40 Albumin/Globulin Ratio 1.7 (0.9-2) 08/23/23 21:40 Code Status & VTE Plan Code Status Full code VTE Prophylaxis Plan VTE Prophylaxis will be ordered: Yes PG Care Time/CCT Total # of Minutes Spent Total Time Spent with Patient: Total time spent is greater than 50% in coordination of care (as documented) at patient's floor/unit and/or counseling patient: Coding Level of Care Code 12239 INT INP/OBS CARE 3/75MIN Diagnoses Fracture of distal end of fibula S82.839A Periprosthetic fracture of knee M97.9XXA Fall from standing W19.XXXA Fall from slipping on ice W00.9XXA Mild persistent asthma J45.30 Diabetes E11.9 GERD (gastroesophageal reflux disease) K21.9 Prediabetes R73.03
[2023-08-24] MEDS: HYDROmorphone INJ 0.5 MG/0.5 ML SYR IV PRN ×5 (01:04→20:03)
[2023-08-24] MEDS ORDERED: CARBOHYDRATES FOR HYPOGLYCEMIA PO PRN (02:09)
[2023-08-24] MEDS ORDERED: GLUCOSE 40% GEL 15 GM TUBE PO PRN (02:09)
[2023-08-24] MEDS ORDERED: GLUCAGON FOR INJ 1 MG VIAL SQ PRN (02:09)
[2023-08-24] MEDS ORDERED: DEXTROSE 50% 50 ML SYRINGE IV PRN (02:09)
[2023-08-24] MEDS ORDERED: GLUCOSE 10 TAB/TUBE PO PRN (02:09)
[2023-08-24] MEDS ORDERED: ONDANSETRON INJ 2 MG/ML 2 ML VIAL IV PRN (02:09)
[2023-08-24] MEDS ORDERED: NSS + 20MEQ KCL 20 MEQ/1,000 ML BAG IV SCH (02:30)
[2023-08-24] MEDS ORDERED: ALBUTEROL HFA 8 GM INHALER INH PRN (04:01)
[2023-08-24] MEDS ORDERED: ACETAMINOPHEN 325 MG TAB PO PRN (04:01)
[2023-08-24] MEDS ORDERED: INSULIN ASPART PER UNIT CHARGE SC SCH (06:00)
--- NOTE | 2023-08-24 06:59 | XRay Report ---
XR ankle RT 2V CLINICAL HISTORY: Right ankle pain following fall. COMPARISON: None FINDINGS: Mild medial ankle mortise widening is noted. There is an acute minimally displaced fractur e of the posterior distal right tibia with intra-articular extension. There is also an acute comminut ed mildly displaced oblique fracture of the distal right fibula which extends from the level the tibi otalar articulation 4.5 cm proximally. Right ankle soft tissue swelling is present. Plantar calcaneal spur is incidentally noted. IMPRESSION: 1. Acute comminuted mildly displaced oblique distal right fibular fracture. 2. Acute minimally displaced fracture of the posterior distal right tibia with intra-articular extens ion. 3. Mild medial ankle mortise widening. ACT 112: Negative or not required by law. Electronically signed by: Rick Cotto M.D. 08/24/2023 6:57 AM
--- NOTE | 2023-08-24 07:03 | XRay Report ---
XR chest 1V portable CLINICAL HISTORY: broken femur, ankle, fall COMPARISON STUDY: Chest radiograph April 20, 2023. Chest CT June 11, 2023. FINDINGS: No pneumothorax or pleural effusion is present. No consolidation is identified. There is no evidence for pulmonary edema. Cardiomediastinal silhouette is stable. There has been no significant change in appearance of the chest. IMPRESSION: No acute cardiopulmonary findings. No change in appearance of the chest. ACT 112: Negative or not required by law. Electronically signed by: Rick Cotto M.D. 08/24/2023 7:02 AM
[2023-08-24 07:09] LABS: Basophils # (auto) 0.04 K/uL (0.00-0.20); Basophils % (auto) 0.3 %; Eosinophils # (auto) 0.01 K/uL (0.00-0.50); Eosinophils % (auto) 0.1 %; Hematocrit (blood only) 37.8 % (42.0-52.0); Hemoglobin 12.9 g/dl (14.0-18.0); Immature Granulocytes # (auto) 0.06 K/uL (0.01-0.20); Immature Granulocytes % (auto) 0.5 %; Lymphocytes # (auto) 1.81 K/uL (1.20-3.40); Lymphocytes % (auto) 14.5 %; Mean Corpuscular Hemoglobin 30.6 pg (25.0-34.0); Mean Corpuscular Hgb Conc 34.1 g/dL (32.0-36.0); Mean Corpuscular Volume 89.6 fL (80.0-100.0); Mean Platelet Volume 8.9 fL (9.4-12.4); Monocytes # (auto) 1.13 K/uL (0.11-0.59); Monocytes % (auto) 9.1 %; Neutrophils % (auto) 75.5 %; Platelet Count 323 K/uL (130-400); RDW Coefficient of Variation 12.8 % (11.5-14.5); RDW Standard Deviation 41.9 fL (36.4-46.3); Red Blood Count 4.22 M/uL (4.70-6.10); White Blood Count 12.45 K/ul (4.8-10.8)
--- NOTE | 2023-08-24 07:17 | XRay Report ---
XR shoulder RT min 2V routine CLINICAL HISTORY: fall; right shoulder pain COMPARISON: Chest CT June 11, 2023. FINDINGS: Alignment of the right shoulder is anatomic. No acute fracture. Moderate degenerative langley ges within the right shoulder are present. IMPRESSION: No fracture or dislocation within the right shoulder. ACT 112: Negative or not required by law. Electronically signed by: Rick Cotto M.D. 08/24/2023 7:16 AM
--- NOTE | 2023-08-24 07:20 | XRay Report ---
XR tibia fibula RT 2V CLINICAL HISTORY: right knee pain s/p fall COMPARISON: Right knee radiographs December 09, 2021. FINDINGS: Right knee arthroplasty is noted. There is an acute oblique displaced distal right femoral periprosthetic fracture. Fracture extends through the distal metadiaphysis of the right femur. No pr oximal right tibial or fibular fracture is noted. There is an acute comminuted mildly displaced obliq ue distal right fibular fracture as well as an acute minimally displaced fracture of the posterior di stal right tibia with intra-articular extension. Medial ankle mortise widening is better depicted on the right ankle radiographs which will be reported separately. IMPRESSION: 1. Acute displaced distal right femoral periprosthetic fracture. 2. Acute comminuted mildly displaced oblique distal right fibular fracture. 3. Acute minimally displaced fracture the posterior distal right tibia with intra-articular extension . ACT 112: Negative or not required by law. Electronically signed by: Rick Cotto M.D. 08/24/2023 7:18 AM
[2023-08-24 07:21] LABS: Albumin Level 4.2 gm/dl (3.4-5.0); Calcium 8.7 mg/dl (8.6-10.3); Creatinine Clr Calc Pharmacy 81.9 ml/min; Est GFR (African American) 95.6 ml/min; Est GFR (Non-African American) 82.5 ml/min; Magnesium 1.8 mg/dl (1.7-2.4); Phosphorus 3.1 mg/dl (2.5-4.9); Potassium 4.1 mmol/L (3.5-5.1)
[2023-08-24 07:52] LABS: Partial Thromboplastin Ratio 1.1; Partial Thromboplastin Time 32 Seconds (21-31); Prothrombin Time 11.2 Seconds (9.0-12.0)
--- NOTE | 2023-08-24 07:56 | XRay Report ---
XR knee RT 1 or 2V routine, XR femur RT 2V routine CLINICAL HISTORY: right knee pain TECHNIQUE: 2 views of the right knee and 2 views of the right femur were obtained. Comparison: None available at the time of this dictation. FINDINGS: Acute mildly displaced fracture of the distal femur with extension to the anterior aspect of the femo ral prosthesis. Patient is status post total knee arthroplasty. A small suprapatellar effusion is se en. Soft tissue swelling is seen about the knee. IMPRESSION: Acute, mildly displaced fracture of the distal femur with extension to the anterior aspect of the fem oral prosthesis. The prosthesis otherwise remains intact. Soft tissue swelling is seen. ACT 112: Negative or not required by law. Electronically signed by: Hieu Worley M.D. 08/24/2023 7:54 AM
[2023-08-24 08:05] LABS: Estimated Average Glucose 154 mg/dl
--- NOTE | 2023-08-24 08:33 | Hospitalist Progress Note ---
Date of Service August 24, 2023 Assessment & Plan (1) Periprosthetic fracture of knee: Plan: Right knee periprosthetic fracture/slip and fall on ice- Imaging w/ * Acute displaced distal right femoral periprosthetic fracture. * Acute comminuted mildly displaced oblique distal right fibular fracture. * Acute minimally displaced fracture the posterior distal right tibia with intra-articular extension. Orthopedics consulted, Dr Martini Pain control w/ tylenol, diluadid as needed Antiemetics w/ zofran prn NPO this morning until eval by orthopedics IVF while NPO w/ NS + 20meq KCL @ 80cc/hr CXR w/o acute process 08/24 Patient reports seen by surgery but no surgery planned for tomorrow. Messaged provider this morning Cancelled current IVF orders, retimed to start at midnight Oxycodone added for PO pain control, bowel regimen w/ colace/miralax Will cancel NPO order, diet DMII/AHA for now, NPO at midnight PT/OT consults will be undertaken once eval/recs by orthopedics (2) Fracture of distal end of fibula: Plan: as above, orthopedics on consult (3) Fall from standing: Plan: Also noting his right ankle imaging w/ Mild medial ankle mortise widening Shoulder (R) imaging w/o acute fracture or subluxation Acute, mildly displaced fracture of the distal femur with extension to the anterior aspect of the femoral prosthesis. The prosthesis otherwise remains intact. Soft tissue swelling is seen.. --> Ortho consulted as above, NPO at midnight for surgery for tomorrow. Presently in immobilizer (4) Fall from slipping on ice: Plan: as above, mechanical fall. no syncope/pre-syncope reported (5) Mild persistent asthma: Plan: Mild persistent asthma- Continue home inhalers as needed No wheezing on exam, 94% on RA (6) Diabetes: Plan: A1c last 7.0 Hold metformin Placed on Accu-Cheks with NovoLog SSI DM II ordered Monitor BSGs/adjustment to SSI as needed (7) GERD (gastroesophageal reflux disease): Plan: Chronic, stable. No increased symptoms reported Continue pantoprazole Hypothyroidism TSH 7.45 in July. Per PCP note in Jul 2022, patient had run out of levothyroxine 2 months prior. (TSH was 6.9 in December earlier that year to note) Continue Synthroid 50mcg daily for now but rec repeating levels w/ PCP outpatient and increase dosing if needed Plan continued inpatient stay DVT proph: SCDs knee for now. Messaged surgery to see about one time dose of Lovenox while awaiting surgery NPO at midnight for surgery for tomorrow per patient. Diet ordered, IVF to start at midnight Will need PT/OT consulted following surgery -- per orthopedics post-op Admission and Anticipated Discharge Date Admission Date: August 23, 2023 Supervising Physician Co-Signing Physician Notes The patient was not seen by me. The chart was reviewed. Case discussed with ALYSSA Santana. Agree with assessment and plan Subjective Eval this morning, resting in bed. Pain controlled with ordered medications, especially if he doesn't move much. Reports seen by orthopedics this morning, no surgery until tomorrow. Discussed will order diet/hold further IVF for now and order PO oxycodone for longer lasting pain control. Reports tolerated this in the past. Passing gas but no BM. Bowel regimen to be ordered. No fever/chills, chest pain, shortness of breath, abdominal pain, nausea or vomiting. Questions/concerns addressed at this time. Physical Exam Physical Exam: General: WD/WN male sitting up in bed, NAD HEENT: head atraumatic, normocephalic, mmm, trachea midline Resp: even, unlabored, no tachypnea/cough, no w/c/r, on room air CV: RRR, no significant mrg, no pitting edema/calf tenderness GI: +BS, soft/NT MSK/Neuro: RLE in knee immobilizer, cap refill wnl, toes mobile, sensation intact no focal deficit/slurred speech, answering questions appropriately Psych: AOx3, cooperative with exam Results & Data Results & Data Vital Signs (Past 12 Hours) Vital Signs Temp Pulse Resp BP Pulse Ox O2 Del Method 08/24/23 07:25 36.8 C 84 100/67 94 Room Air 08/24/23 02:01 36.5 C 87 20 150/88 H 92 Room Air 08/24/23 01:20 68 16 143/78 H 95 Room Air 08/24/23 00:00 80 16 135/83 98 Room Air 08/23/23 22:00 72 16 143/97 H 95 Room Air Laboratory Results 08/24/23 08/24/23 08/23/23 Range/Units 06:39 06:13 21:40 WBC 12.45 H 16.12 H (4.8-10.8) K/ul RBC 4.22 L 4.65 L (4.70-6.10) M/uL Hgb 12.9 L 14.3 (14.0-18.0) g/dl Hct 37.8 L 42.0 (42.0-52.0) % MCV 89.6 90.3 (80.0-100.0) fL MCH 30.6 30.8 (25.0-34.0) pg MCHC 34.1 34.0 (32.0-36.0) g/dL RDW Std Deviation 41.9 42.2 (36.4-46.3) fL RDW Coeff of [place] 12.8 12.9 (11.5-14.5) % Plt Count 323 348 (130-400) K/uL MPV 8.9 L 8.7 L (9.4-12.4) fL Immature Gran % (Auto) 0.5 0.4 % Neut % (Auto) 75.5 84.5 % Lymph % (Auto) 14.5 9.7 % [place] % (Auto) 9.1 4.8 % Eos % (Auto) 0.1 0.2 % Baso % (Auto) 0.3 0.4 % Neut # (Auto) 9.40 H 13.59 H (1.40-6.50) K/uL Lymph # (Auto) 1.81 1.57 (1.20-3.40) K/uL [place] # (Auto) 1.13 H 0.78 H (0.11-0.59) K/uL Eos # (Auto) 0.01 0.04 (0.00-0.50) K/uL Baso # (Auto) 0.04 0.07 (0.00-0.20) K/uL Immature Gran # (Auto) 0.06 0.07 (0.01-0.20) K/uL PT 11.2 (9.0-12.0) Seconds INR 1.0 (0.9-1.1) APTT 32 H (21-31) Seconds PTT Ratio 1.1 Sodium 135 L 138 (136-145) mmol/L Potassium 4.1 4.2 (3.5-5.1) mmol/L Chloride 104 106 (98-107) mmol/L Carbon Dioxide 25 24 (21-32) mmol/L Anion Gap 6 8 (3-11) BUN 15 18 (6-23) mg/dl Creatinine 0.79 1.02 (0.6-1.4) mg/dl Est Cr Clr Drug Dosing 81.9 64.3 ml/min Est GFR ( Amer) 95.6 77.9 ml/min Est GFR (Non-Af Amer) 82.5 67.2 ml/min BUN/Creatinine Ratio 19.0 17.6 (10-20) Glucose 169 H 179 H (70-99(Fasting)) mg/dl POC Glucose 172 H (70-99) mg/dl Estimat Average Glucose 154 mg/dl Hemoglobin A1c 7.0 H (4.5-5.6) % Calcium 8.7 9.0 (8.6-10.3) mg/dl Phosphorus 3.1 (2.5-4.9) mg/dl Magnesium 1.8 (1.7-2.4) mg/dl Total Bilirubin 0.3 (0.2-1.0) mg/dl AST 14 (13-39) U/L ALT 11 (7-52) U/L Alkaline Phosphatase 68 (34-104) U/L Troponin I High Sens 4.1 (0-20) pg/ml Total Protein 7.2 (6.0-8.3) gm/dl Albumin 4.2 4.5 (3.4-5.0) gm/dl Globulin 2.7 (2.5-4.0) gm/dl Albumin/Globulin Ratio 1.7 (0.9-2) Diagnostic Findings Femur X-Ray 08/23/23 20:14 XR knee RT 1 or 2V routine, XR femur RT 2V routine CLINICAL HISTORY: right knee pain TECHNIQUE: 2 views of the right knee and 2 views of the right femur were obtained. Comparison: None available at the time of this dictation. FINDINGS: Acute mildly displaced fracture of the distal femur with extension to the anterior aspect of the femoral prosthesis. Patient is status post total knee arthroplasty. A small suprapatellar effusion is seen. Soft tissue swelling is seen about the knee. IMPRESSION: Acute, mildly displaced fracture of the distal femur with extension to the anterior aspect of the femoral prosthesis. The prosthesis otherwise remains intact. Soft tissue swelling is seen. ACT 112: Negative or not required by law. Electronically signed by: Hieu Worley M.D. 08/24/2023 7:54 AM Knee X-Ray 08/23/23 20:14 XR knee RT 1 or 2V routine, XR femur RT 2V routine CLINICAL HISTORY: right knee pain TECHNIQUE: 2 views of the right knee and 2 views of the right femur were obtained. Comparison: None available at the time of this dictation. FINDINGS: Acute mildly displaced fracture of the distal femur with extension to the anterior aspect of the femoral prosthesis. Patient is status post total knee arthroplasty. A small suprapatellar effusion is seen. Soft tissue swelling is seen about the knee. IMPRESSION: Acute, mildly displaced fracture of the distal femur with extension to the anterior aspect of the femoral prosthesis. The prosthesis otherwise remains intact. Soft tissue swelling is seen. ACT 112: Negative or not required by law. Electronically signed by: Hieu Worley M.D. 08/24/2023 7:54 AM Shoulder X-Ray 08/23/23 20:14 XR shoulder RT min 2V routine CLINICAL HISTORY: fall; right shoulder pain COMPARISON: Chest CT June 11, 2023. FINDINGS: Alignment of the right shoulder is anatomic. No acute fracture. Moderate degenerative changes within the right shoulder are present. IMPRESSION: No fracture or dislocation within the right shoulder. ACT 112: Negative or not required by law. Electronically signed by: Rick Cotto M.D. 08/24/2023 7:16 AM Tibia/Fibula X-Ray 08/23/23 20:14 XR tibia fibula RT 2V CLINICAL HISTORY: right knee pain s/p fall COMPARISON: Right knee radiographs December 09, 2021. FINDINGS: Right knee arthroplasty is noted. There is an acute oblique displaced distal right femoral periprosthetic fracture. Fracture extends through the distal metadiaphysis of the right femur. No proximal right tibial or fibular fracture is noted. There is an acute comminuted mildly displaced oblique distal right fibular fracture as well as an acute minimally displaced fracture of the posterior distal right tibia with intra-articular extension. Medial ankle mortise widening is better depicted on the right ankle radiographs which will be reported separately. IMPRESSION: 1. Acute displaced distal right femoral periprosthetic fracture. 2. Acute comminuted mildly displaced oblique distal right fibular fracture. 3. Acute minimally displaced fracture the posterior distal right tibia with intra-articular extension. ACT 112: Negative or not required by law. Electronically signed by: Rick Cotto M.D. 08/24/2023 7:18 AM Chest X-Ray 08/23/23 20:47 XR chest 1V portable CLINICAL HISTORY: broken femur, ankle, fall COMPARISON STUDY: Chest radiograph April 20, 2023. Chest CT June 11, 2023. FINDINGS: No pneumothorax or pleural effusion is present. No consolidation is identified. There is no evidence for pulmonary edema. Cardiomediastinal silhouette is stable. There has been no significant change in appearance of the chest. IMPRESSION: No acute cardiopulmonary findings. No change in appearance of the chest. ACT 112: Negative or not required by law. Electronically signed by: Rick Cotto M.D. 08/24/2023 7:02 AM Ankle X-Ray 08/23/23 20:59 XR ankle RT 2V CLINICAL HISTORY: Right ankle pain following fall. COMPARISON: None FINDINGS: Mild medial ankle mortise widening is noted. There is an acute minimally displaced fracture of the posterior distal right tibia with intra- articular extension. There is also an acute comminuted mildly displaced oblique fracture of the distal right fibula which extends from the level the tibiotalar articulation 4.5 cm proximally. Right ankle soft tissue swelling is present. Plantar calcaneal spur is incidentally noted. IMPRESSION: 1. Acute comminuted mildly displaced oblique distal right fibular fracture. 2. Acute minimally displaced fracture of the posterior distal right tibia with intra-articular extension. 3. Mild medial ankle mortise widening. ACT 112: Negative or not required by law. Electronically signed by: Rick Cotto M.D. 08/24/2023 6:57 AM PG Care Time/CCT Total # of Minutes Spent Total Time Spent with Patient: Total time spent is greater than 50% in coordination of care (as documented) at patient's floor/unit and/or counseling patient: Coding Level of Care Code 77810 SUB INP/OBS CARE 3/50MIN Diagnoses Periprosthetic fracture of knee M97.9XXA Fracture of distal end of fibula S82.839A Fall from standing W19.XXXA Fall from slipping on ice W00.9XXA Mild persistent asthma J45.30 Diabetes E11.9 GERD (gastroesophageal reflux disease) K21.9
[2023-08-24] MEDS ORDERED: Nursing to Pharmacy Communication SCH (10:45)
--- NOTE | 2023-08-24 10:52 | Orthopedic Consultation ---
Date of Service August 24, 2023 Assessment & Plan (1) Fracture of distal end of fibula: (2) Periprosthetic fracture of knee: Plan I had a long discussion today with the patient about his right lower extremity pathology in great detail with ample amount of time for the patient to ask any questions or state any concerns. All questions and concerns were answered to the patient's satisfaction. At this point, we are going to address his periprostatic fracture first to the right knee. He is aware that this is going to require surgical intervention and wishes to proceed as such. Open reduction internal fixation of the right knee periprosthetic fracture was discussed in great detail with the patient with ample amount of time for the patient to ask any questions or state any concerns. The risk, benefits, and alternatives to open reduction internal fixation right knee periprosthetic fracture were discussed with the patient and the patient wishes to proceed. We will proceed with surgical intervention tomorrow. W will keep him in his knee immobilizer and and splint at this point. Bedrest for today. He may have a regular diet today. N.p.o. after midnight. We will also proceed with an open reduction internal fixation of the right bimalleolar ankle fracture while the patient is already under anesthesia for the periprosthetic fracture. The risk, benefits, alternatives to open reduction internal fixation of the right ankle was also discussed in its entirely with the patient in which the patient wishes to proceed as well. Fracture is stable at this time in the splint. Medical management per primary. We will follow-up and proceed with surgical intervention tomorrow if no issues with primary service. History of Present Illness Reason for Consultation: . Right knee periprosthetic fracture, right bimalleolar ankle fracture with slightly widened mortise. Requesting Physician: . Attending Physician: Dennis Guo MD . Rodrigue is an 82-year-old gentleman who is known to [facility] orthopedics due to a right knee replacement completed by Dr. Martini back on 12/09/2021. He states that yesterday he was walking out of latter day whenever he slipped on ice and landed directly on his right lower extremity. He noted immediate onset of right lower extremity pain with with the inability to bear weight. He was transported to [facility] emergency department where radiographs were completed and it was found that he had a right knee periprosthetic fracture as well as a right bimalleolar ankle fracture. Orthopedics was then asked to consult. He states that at this present time his pain is well-controlled as long as he does not move the right lower extremity. He is currently in a knee immobilizer and splint and on bedrest. He denies any other issues at this point. He is not on any anticoagulation. Allergies Allergy/AdvReac Type Severity Reaction Status Date / Time No Known Allergies Allergy None Verified 08/23/23 21:14 Home Medications Medication Instructions Recorded Confirmed Type Focus Eye Vitamins 1 tab PO BID 10/03/18 08/23/23 History cholecalciferol (vitamin D3) 25 1,000 unit PO HS 10/03/18 08/23/23 History mcg (1,000 unit) capsule (Vitamin D3) glucosamine sulfate 500 mg tablet 1,000 mg PO QAM 10/03/18 08/23/23 History (Glucosamine) assvppqs-ld-xaoem 300 mcg-K 60 1 tab PO HS 10/03/18 08/23/23 History mcg-lycop 600 mcg-lutein 300 mcg tablet (Centrum Silver Men) zinc 50 mg tablet 50 mg PO HS 04/14/20 08/23/23 History lactobacillus combination no.4 3 3,000 mmu cells PO QAM 04/29/21 08/23/23 History billion cell capsule (Probiotic) pantoprazole 40 mg tablet,delayed 40 mg PO BID #60 tabs 07/22/22 08/23/23 Rx release fluoxetine 20 mg capsule (Prozac) 20 mg PO HS #90 caps 12/04/22 08/23/23 Rx levothyroxine 50 mcg capsule 50 mcg PO DAILY #90 caps 01/20/23 08/23/23 Rx pseudoephedrine HCl 120 mg 120 mg PO BID 30 days #60 tabs 02/04/23 08/23/23 Rx tablet,extended release (Sudafed 12 Hour) tamsulosin 0.4 mg capsule 0.4 mg PO HS #90 caps 03/10/23 08/23/23 Rx albuterol sulfate 90 mcg/actuation 2 puff inhalation Q6H PRN 04/22/23 08/23/23 Rx aerosol inhaler shortness of breath or wheezing #8.5 grams gabapentin 100 mg capsule 100 mg PO BID PRN cough #60 caps 05/31/23 08/23/23 Rx atorvastatin 10 mg tablet 10 mg PO DAILY #30 tabs 07/19/23 08/23/23 Rx metformin 750 mg tablet,extended 750 mg PO BID #180 tabs 07/23/23 08/23/23 Rx release 24 hr azelastine 137 mcg (0.1 %) nasal 2 spray intranasal BID PRN nasal 08/12/23 08/23/23 Rx spray aerosol congestion #30 mL ipratropium bromide 21 mcg (0.03 2 spray intranasal TID PRN 08/12/23 08/23/23 Rx %) nasal spray postnasal drip #30 mL albuterol sulfate 90 mcg/actuation 2 puff inhalation Q6 PRN Shortness 08/23/23 08/23/23 History aerosol inhaler Of Breath Or Wheezing chlorpheniramine maleate 4 mg 4 mg PO Q12H PRN Allergy Symptoms 08/23/23 08/23/23 History tablet (Allergy Relief (chlorpheniramine)) fluticasone propionate 50 1 spray intranasal BID PRN Nasal 08/23/23 08/23/23 History mcg/actuation nasal Congestion spray,suspension (Flonase Allergy Relief) Past Med/Surg History Medical History (Updated 08/24/23 @ 03:58 by Loki Kerr MD) Chronic rhinitis Mild persistent asthma GERD (gastroesophageal reflux disease) History of necrotising fasciitis Occurred around 2013 - initially started in buttocks area with abscess- had extensive surgery to remove No issues since that time Encounter for pre-operative examination History of kidney stones No recent issues Prediabetes Hgb A1C 6.8 on 11/11/21 (pt in DM range) Hypothyroidism Macular degeneration Hyperlipidemia Left arm pain Neck pain Subdural hematoma S/P FALLING 2014 (NO INTERVENTION NEEDED) No current issues HTN (hypertension) BPH (benign prostatic hypertrophy) Surgical History History of surgery perirectal abscess History of hernia repair (~10/04/20) @ [facility] History of reversal of ileostomy History of arthroscopy of left shoulder (~02/21/20) @ [facility] Hx of transurethral resection of prostate History of colonoscopy History of herniorrhaphy H/O eye surgery RT RETINA REPAIR History of colon resection hx of ileostomy--reversal done Family History Mother Family history of diabetes mellitus Breast cancer Diabetes Sister Breast cancer Brother Diabetes Other Family history non-contributory No family history of adverse response to anesthesia Denies family history of Ovarian cancer Prostate cancer Myocardial infarction Colorectal cancer Hypertension Social History Smoking Status: Never smoker Second Hand Exposure: No; Do You Dip or Chew Tobacco: No; Hx Alcohol Use: No Hx Substance Use: No Preferred Language: Gambian Communication Ability: Effective Visual Impairment: Limited Hearing Ability: Use of Hearing Aid 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 Glass Required: No Beliefs That Will Affect Care: None marital status: Current Living Situation: Spouse current occupational status: retired How many Children do You have: 3 Other Information That Helps Us Care for You: No Feels Safe at Home: Yes Safety Concerns: Feels Safe At This Time Childhood Exposure to Second-Hand Smoke: Yes Diet: regular caffeine: Yes (coffee ) during the past year weight has: remained stable Dental Care, Regularly: Yes Physical Activity Frequency: Does not Exercise Seatbelt Use: always Sunscreen Use: No Assistive Devices: Cane and Walker Review of Systems All systems reviewed & are unremarkable except as noted in HPI & below. Physical Exam .The patient is awake, alert and oriented 3, well developed and well nour ished, normocephalic and atraumatic, lying in bed and in moderate distress due to right knee pain HEENT--PERRL, EOMI, mucous membranes and oropharynx normal Neck--supple. No JVD. No bruits. Thyroid normal, trachea midline, no adenopathy. Heart--normal S1 and S2. No murmurs, rubs or gallops. Lungs--clear bilaterally, no respiratory distress, no accessory muscle use. Abdomen--normal bowel sounds and soft. Nontender. Nondistended. Obese Dermatologic--normal skin turgor, normal color, no abnormal lymph nodes, no rash. Neurologic--cranial nerves II through XII grossly intact. Rheumatologic--limited exam Psychiatric--normal affect. Musculoskeletal On physical examination of the right lower extremity, knee immobilizer and ankle splint intact. It will wiggle all 5 toes. Less than 2-second capillary refill. Normal sensation. Neurovascular intact. Results & Data Results & Data Laboratory Results . Abnormal lab results 08/23/23 08/24/23 08/24/23 Range/Units 21:40 06:13 06:39 WBC 16.12 H 12.45 H (4.8-10.8) K/ul RBC 4.65 L 4.22 L (4.70-6.10) M/uL Hgb 12.9 L (14.0-18.0) g/dl Hct 37.8 L (42.0-52.0) % MPV 8.7 L 8.9 L (9.4-12.4) fL Neut # (Auto) 13.59 H 9.40 H (1.40-6.50) K/uL [place] # (Auto) 0.78 H 1.13 H (0.11-0.59) K/uL APTT 32 H (21-31) Seconds Sodium 135 L (136-145) mmol/L Glucose 179 H 169 H (70-99(Fasting)) mg/dl POC Glucose 172 H (70-99) mg/dl Hemoglobin A1c 7.0 H (4.5-5.6) % Diagnostic Findings . Femur X-Ray 08/23/23 20:14 XR knee RT 1 or 2V routine, XR femur RT 2V routine CLINICAL HISTORY: right knee pain TECHNIQUE: 2 views of the right knee and 2 views of the right femur were obtained. Comparison: None available at the time of this dictation. FINDINGS: Acute mildly displaced fracture of the distal femur with extension to the anterior aspect of the femoral prosthesis. Patient is status post total knee arthroplasty. A small suprapatellar effusion is seen. Soft tissue swelling is seen about the knee. IMPRESSION: Acute, mildly displaced fracture of the distal femur with extension to the anterior aspect of the femoral prosthesis. The prosthesis otherwise remains intact. Soft tissue swelling is seen. ACT 112: Negative or not required by law. Electronically signed by: Hieu Worley M.D. 08/24/2023 7:54 AM Knee X-Ray 08/23/23 20:14 XR knee RT 1 or 2V routine, XR femur RT 2V routine CLINICAL HISTORY: right knee pain TECHNIQUE: 2 views of the right knee and 2 views of the right femur were obtained. Comparison: None available at the time of this dictation. FINDINGS: Acute mildly displaced fracture of the distal femur with extension to the anterior aspect of the femoral prosthesis. Patient is status post total knee arthroplasty. A small suprapatellar effusion is seen. Soft tissue swelling is seen about the knee. IMPRESSION: Acute, mildly displaced fracture of the distal femur with extension to the anterior aspect of the femoral prosthesis. The prosthesis otherwise remains intact. Soft tissue swelling is seen. ACT 112: Negative or not required by law. Electronically signed by: Hieu Worley M.D. 08/24/2023 7:54 AM Shoulder X-Ray 08/23/23 20:14 XR shoulder RT min 2V routine CLINICAL HISTORY: fall; right shoulder pain COMPARISON: Chest CT June 11, 2023. FINDINGS: Alignment of the right shoulder is anatomic. No acute fracture. Moderate degenerative changes within the right shoulder are present. IMPRESSION: No fracture or dislocation within the right shoulder. ACT 112: Negative or not required by law. Electronically signed by: Rick Cotto M.D. 08/24/2023 7:16 AM Tibia/Fibula X-Ray 08/23/23 20:14 XR tibia fibula RT 2V CLINICAL HISTORY: right knee pain s/p fall COMPARISON: Right knee radiographs December 09, 2021. FINDINGS: Right knee arthroplasty is noted. There is an acute oblique displaced distal right femoral periprosthetic fracture. Fracture extends through the distal metadiaphysis of the right femur. No proximal right tibial or fibular fracture is noted. There is an acute comminuted mildly displaced oblique distal right fibular fracture as well as an acute minimally displaced fracture of the posterior distal right tibia with intra-articular extension. Medial ankle mortise widening is better depicted on the right ankle radiographs which will be reported separately. IMPRESSION: 1. Acute displaced distal right femoral periprosthetic fracture. 2. Acute comminuted mildly displaced oblique distal right fibular fracture. 3. Acute minimally displaced fracture the posterior distal right tibia with intra-articular extension. ACT 112: Negative or not required by law. Electronically signed by: Rick Cotto M.D. 08/24/2023 7:18 AM Chest X-Ray 08/23/23 20:47 XR chest 1V portable CLINICAL HISTORY: broken femur, ankle, fall COMPARISON STUDY: Chest radiograph April 20, 2023. Chest CT June 11, 2023. FINDINGS: No pneumothorax or pleural effusion is present. No consolidation is identified. There is no evidence for pulmonary edema. Cardiomediastinal silhouette is stable. There has been no significant change in appearance of the chest. IMPRESSION: No acute cardiopulmonary findings. No change in appearance of the chest. ACT 112: Negative or not required by law. Electronically signed by: Rick Cotto M.D. 08/24/2023 7:02 AM Ankle X-Ray 08/23/23 20:59 XR ankle RT 2V CLINICAL HISTORY: Right ankle pain following fall. COMPARISON: None FINDINGS: Mild medial ankle mortise widening is noted. There is an acute minimally displaced fracture of the posterior distal right tibia with intra- articular extension. There is also an acute comminuted mildly displaced oblique fracture of the distal right fibula which extends from the level the tibiotalar articulation 4.5 cm proximally. Right ankle soft tissue swelling is present. Plantar calcaneal spur is incidentally noted. IMPRESSION: 1. Acute comminuted mildly displaced oblique distal right fibular fracture. 2. Acute minimally displaced fracture of the posterior distal right tibia with intra-articular extension. 3. Mild medial ankle mortise widening. ACT 112: Negative or not required by law. Electronically signed by: Rick Cotto M.D. 08/24/2023 6:57 AM PG Care Time/CCT Total # of Minutes Spent Total Time Spent with Patient: Total time spent is greater than 50% in coordination of care (as documented) at patient's floor/unit and/or counseling patient: Coding Level of Care Code 72637 IN/OBS CONSULT LVL 3,45M Diagnoses Fracture of distal end of fibula S82.839A Periprosthetic fracture of knee M97.9XXA Additional Codes Fx Hip/Femur - Femoral shaft: Femoral shaft ([id number])
[2023-08-24] MEDS: oxyCODONE HCL IR 5 MG TAB (IMMEDIATE RELEASE) PO PRN ×2 (11:16→16:26)
--- NOTE | 2023-08-24 12:18 | Electrocardiogram Report ---
Test Reason : Blood Pressure : / mmHG Vent. Rate : 080 BPM Atrial Rate : 080 BPM P-R Int : 164 ms QRS Dur : 068 ms QT Int : 346 ms P-R-T Axes : 047 024 027 degrees QTc Int : 399 ms Normal sinus rhythm Low voltage QRS Borderline ECG When compared with ECG of 11-NOV-2021 14:44, No significant change was found Confirmed by Irineo Zelaya ([id number]) on 08/24/2023 12:18:01 PM Referred By: REFERRED SELF Confirmed By:Trey Zelaya
[2023-08-24] MEDS: INSULIN ASPART PER UNIT CHARGE SC SCH ×3 (12:52→23:40)
--- NOTE | 2023-08-24 13:48 | Communication Note ---
Date of Service: August 24, 2023 CDS Query Age-related osteoporotic fractures involving the right distal femur and right distal tibia and fibula Orthopedics consulted, NPO at midnight for surgery for open reduction internal fixation of the right knee periprosthetic fracture as well as open reduction internal fixation of RIGHT bimalleolar ankle fracture while under anesthesia and to remain in immobilizer and splint at present time.
[2023-08-24] MEDS: TAMSULOSIN HCL 0.4 MG CAP PO SCH (20:04)
[2023-08-24] MEDS: ZINC SULFATE 220 MG CAPSULE PO SCH (20:04)
[2023-08-24] MEDS: FLUoxetine HCL 20 MG CAP PO SCH (20:04)
[2023-08-24] MEDS: PANTOprazole 40 MG TAB PO SCH (20:04)
[2023-08-24] MEDS: NSS + 20MEQ KCL 20 MEQ/1,000 ML BAG IV SCH (23:37)
[2023-08-25] MEDS: INSULIN ASPART PER UNIT CHARGE SC SCH ×5 (05:32→23:28)
[2023-08-25] MEDS ORDERED: ROPIVACAINE 0.5% 5 MG/ML 30 ML VIAL ONE (06:32)
[2023-08-25 07:42] LABS: Basophils # (auto) 0.05 K/uL (0.00-0.20); Basophils % (auto) 0.4 %; Eosinophils # (auto) 0.09 K/uL (0.00-0.50); Eosinophils % (auto) 0.8 %; Hematocrit (blood only) 35.3 % (42.0-52.0); Hemoglobin 12.4 g/dl (14.0-18.0); Immature Granulocytes # (auto) 0.04 K/uL (0.01-0.20); Immature Granulocytes % (auto) 0.4 %; Lymphocytes # (auto) 1.93 K/uL (1.20-3.40); Lymphocytes % (auto) 17.3 %; Mean Corpuscular Hemoglobin 31.1 pg (25.0-34.0); Mean Corpuscular Hgb Conc 35.1 g/dL (32.0-36.0); Mean Corpuscular Volume 88.5 fL (80.0-100.0); Mean Platelet Volume 8.9 fL (9.4-12.4); Monocytes % (auto) 9.9 %; Neutrophils # (auto) 7.93 K/uL (1.40-6.50); Neutrophils % (auto) 71.2 %; Platelet Count 294 K/uL (130-400); RDW Coefficient of Variation 12.9 % (11.5-14.5); RDW Standard Deviation 41.8 fL (36.4-46.3); Red Blood Count 3.99 M/uL (4.70-6.10); White Blood Count 11.14 K/ul (4.8-10.8)
[2023-08-25 07:52] LABS: Albumin Level 3.8 gm/dl (3.4-5.0); Calcium 8.5 mg/dl (8.6-10.3); Magnesium 1.8 mg/dl (1.7-2.4); Potassium 3.9 mmol/L (3.5-5.1)
[2023-08-25 07:58] LABS: BUN Creatinine Ratio 15.3 (10-20); Creatinine Clr Calc Pharmacy 89.8 ml/min; Est GFR (African American) 99.3 ml/min; Est GFR (Non-African American) 85.7 ml/min
[2023-08-25 08:02] LABS: INR 1.1 (0.9-1.1); Partial Thromboplastin Ratio 1.3; Partial Thromboplastin Time 36 Seconds (21-31); Prothrombin Time 11.6 Seconds (9.0-12.0)
[2023-08-25 08:56] LABS: Phosphorus 1.9 mg/dl (2.5-4.9)
[2023-08-25] MEDS ORDERED: SODIUM PHOSPHATE 3 MMOL/1 ML INFUSION IV STA ×2 (08:57→17:50)
--- NOTE | 2023-08-25 09:02 | Hospitalist Progress Note ---
Date of Service August 25, 2023 Assessment & Plan (1) Periprosthetic fracture of knee: Plan: Age-related osteoporotic fractures involving the RIGHT distal femur and right distal tibia and fibula after fall/slip on ice Imaging w/ acute displaced distal right femoral periprosthetic fracture. Acute comminuted mildly displaced oblique distal right fibular fracture. Acute minimally displaced fracture the posterior distal right tibia with intra- articular extension. Immobilizer in place for now Orthopedics consulted NPO for OR this morning, 08/[address] Martini -planning for open reduction internal fixation of the right knee periprosthetic fracture as well as open reduction internal fixation of RIGHT bimalleolar ankle fracture while under anesthesia IVF for maintenance for now WBC elevation on admission suspected from stress from fall/fracture. - CXR w/o acute process on admission. No reported fever/chills, has been afebrile. Monitor for any infectious symptoms. Denies any urinary issues (no gill at present time) Pain control - Tylenol, oxycodone, Dilaudid IV for breakthrough Bowel regimen, antiemetics PT/OT consults to be undertaken post-op, CM to follow as likely will require rehab at discharge (patient agreeable) DVT proph: SCDs for now, chemoproph following surgery per orthopedics Monitor labs in AM (2) Fracture of distal end of fibula: Plan: as above, orthopedics on consult and planning for OR today (3) Fall from standing: Plan: Also noting his right ankle imaging w/ Mild medial ankle mortise widening Shoulder (R) imaging w/o acute fracture or subluxation Ortho/surgery as outlined above (4) Fall from slipping on ice: Plan: as above, mechanical fall. no syncope/pre-syncope reported (5) Mild persistent asthma: Plan: Mild persistent asthma- Continue home inhalers as needed No wheezing on exam, 93% on RA (6) Diabetes: Plan: A1c 7.0 Metformin on hold, BSG AC/HS, sliding scale insulin while inpatient. BSGs acceptable. May need adjustment if steroids w/ surgery. DM diet when able to eat post-op Monitor (7) GERD (gastroesophageal reflux disease): Plan: Chronic, stable. No increased symptoms reported Continue pantoprazole Hypothyroidism TSH 7.45 in July. Per PCP note in Jul 2022, patient had run out of levothyroxine 2 months prior. (TSH was 6.9 in [place] earlier that year to note) Continue Synthroid 50mcg daily for now but rec repeating levels w/ PCP outpatient and increase dosing if needed Plan continued inpatient stay To OR today w/ Dr Martini, PT/OT following. CM to follow Admission and Anticipated Discharge Date Admission Date: August 23, 2023 Supervising Physician Co-Signing Physician Notes The patient was not seen by me. The chart was reviewed. Case discussed with ALYSSA Santana. Agree with assessment and plan Subjective Seen this morning, doing well. Pain controlled with ordered medications, just received dose of oxycodone. active bowel sounds but denies flatus/bowel movement. will increase regimen post op. No fevers, chills, chest pain, shortness of breath, lightheadedness/dizziness, abdominal pain, nausea or vomiting. No gill at present. Aware of surgery, they are calling for him now. Will obtain therapy evals following -- patient agreeable to rehab if needed. 2 steps at home. Questions/concerns addressed at this time. Physical Exam 2 Physical Exam: General: WD/WN male sitting up in bed, NAD HEENT: head atraumatic, normocephalic, mmm, trachea midline Resp: even, unlabored, slightly diminshed in the bases, but no w/c/r, no cough/tachypnea, on room air 93% CV: RRR, no significant mrg, no pitting edema/calf tenderness GI: +BS, soft/NT MSK/Neuro: RLE in knee immobilizer, cap refill wnl, toes mobile, sensation intact no focal deficit/slurred speech, answering questions appropriately Psych: AOx3, cooperative with exam Results & Data Results & Data Vital Signs (Past 12 Hours) Vital Signs Temp Pulse Resp BP Pulse Ox O2 Del Method 08/25/23 07:46 36.9 C 89 18 95/61 L 93 Room Air Laboratory Results 08/25/23 08/25/23 08/24/23 Range/Units 06:44 05:30 23:35 WBC 11.14 H (4.8-10.8) K/ul RBC 3.99 L (4.70-6.10) M/uL Hgb 12.4 L (14.0-18.0) g/dl Hct 35.3 L (42.0-52.0) % MCV 88.5 (80.0-100.0) fL MCH 31.1 (25.0-34.0) pg MCHC 35.1 (32.0-36.0) g/dL RDW Std Deviation 41.8 (36.4-46.3) fL RDW Coeff of Zahraa 12.9 (11.5-14.5) % Plt Count 294 (130-400) K/uL MPV 8.9 L (9.4-12.4) fL Immature Gran % (Auto) 0.4 % Neut % (Auto) 71.2 % Lymph % (Auto) 17.3 % [place] % (Auto) 9.9 % Eos % (Auto) 0.8 % Baso % (Auto) 0.4 % Neut # (Auto) 7.93 H (1.40-6.50) K/uL Lymph # (Auto) 1.93 (1.20-3.40) K/uL [place] # (Auto) 1.10 H (0.11-0.59) K/uL Eos # (Auto) 0.09 (0.00-0.50) K/uL Baso # (Auto) 0.05 (0.00-0.20) K/uL Immature Gran # (Auto) 0.04 (0.01-0.20) K/uL PT 11.6 (9.0-12.0) Seconds INR 1.1 (0.9-1.1) APTT 36 H (21-31) Seconds PTT Ratio 1.3 Sodium 134 L (136-145) mmol/L Potassium 3.9 (3.5-5.1) mmol/L Chloride 103 (98-107) mmol/L Carbon Dioxide 24 (21-32) mmol/L Anion Gap 7 (3-11) BUN 11 (6-23) mg/dl Creatinine 0.72 (0.6-1.4) mg/dl Est Cr Clr Drug Dosing 89.8 ml/min Est GFR ( Amer) 99.3 ml/min Est GFR (Non-Af Amer) 85.7 ml/min BUN/Creatinine Ratio 15.3 (10-20) Glucose 157 H (70-99(Fasting)) mg/dl POC Glucose 145 H 174 H (70-99) mg/dl Calcium 8.5 L (8.6-10.3) mg/dl Phosphorus 1.9 L D (2.5-4.9) mg/dl Magnesium 1.8 (1.7-2.4) mg/dl Albumin 3.8 (3.4-5.0) gm/dl 08/24/23 08/24/23 Range/Units 16:38 11:22 WBC (4.8-10.8) K/ul RBC (4.70-6.10) M/uL Hgb (14.0-18.0) g/dl Hct (42.0-52.0) % MCV (80.0-100.0) fL MCH (25.0-34.0) pg MCHC (32.0-36.0) g/dL RDW Std Deviation (36.4-46.3) fL RDW Coeff of Zahraa (11.5-14.5) % Plt Count (130-400) K/uL MPV (9.4-12.4) fL Immature Gran % (Auto) % Neut % (Auto) % Lymph % (Auto) % [place] % (Auto) % Eos % (Auto) % Baso % (Auto) % Neut # (Auto) (1.40-6.50) K/uL Lymph # (Auto) (1.20-3.40) K/uL [place] # (Auto) (0.11-0.59) K/uL Eos # (Auto) (0.00-0.50) K/uL Baso # (Auto) (0.00-0.20) K/uL Immature Gran # (Auto) (0.01-0.20) K/uL PT (9.0-12.0) Seconds INR (0.9-1.1) APTT (21-31) Seconds PTT Ratio Sodium (136-145) mmol/L Potassium (3.5-5.1) mmol/L Chloride (98-107) mmol/L Carbon Dioxide (21-32) mmol/L Anion Gap (3-11) BUN (6-23) mg/dl Creatinine (0.6-1.4) mg/dl Est Cr Clr Drug Dosing ml/min Est GFR ( Amer) ml/min Est GFR (Non-Af Amer) ml/min BUN/Creatinine Ratio (10-20) Glucose (70-99(Fasting)) mg/dl POC Glucose 136 H 188 H (70-99) mg/dl Calcium (8.6-10.3) mg/dl Phosphorus (2.5-4.9) mg/dl Magnesium (1.7-2.4) mg/dl Albumin (3.4-5.0) gm/dl Diagnostic Findings 08/25/23 06:44 08/25/23 06:44 Phos 1.9 PG Care Time/CCT Total # of Minutes Spent Total Time Spent with Patient: Total time spent is greater than 50% in coordination of care (as documented) at patient's floor/unit and/or counseling patient: Coding Level of Care Code 05513 SUB INP/OBS CARE 2/35MIN Diagnoses Periprosthetic fracture of knee M97.9XXA Fracture of distal end of fibula S82.839A Fall from standing W19.XXXA Fall from slipping on ice W00.9XXA Mild persistent asthma J45.30 Diabetes E11.9 GERD (gastroesophageal reflux disease) K21.9
[2023-08-25] MEDS: PANTOprazole 40 MG TAB PO SCH ×2 (09:14→20:10)
[2023-08-25] MEDS: oxyCODONE HCL IR 5 MG TAB (IMMEDIATE RELEASE) PO PRN (09:14)
[2023-08-25] MEDS ORDERED: SODIUM PHOSPHATE 9 MMOL in SODIUM CHLORIDE 0.9% 250 ML IV ONE ×2 (09:30→18:00)
[2023-08-25] MEDS: LACTATED RINGER'S 1,000 ML IV SCH (10:12)
[2023-08-25] MEDS ORDERED: PROPOFOL IV EMULSION 10 MG/ML 20 ML VIAL IV ONE (10:15)
[2023-08-25] MEDS ORDERED: fentaNYL citrate PF 100 MCG/2 ML VIAL ONE ×2 (10:16→11:11)
--- NOTE | 2023-08-25 10:30 | Anesthesiology Consultation ---
Date of Service August 25, 2023 Assessment & Plan Chart Review Chart Review: Acceptable Risk for Surgery and Patient NOT seen in Pre Admission Testing Consults Requested none ASA ASA3 Proposed Anesthesia Anesthesia Type: General Risk / Benefits Reviewed With: PT / POA / Parent / Guardian, Accepts Plan and Informed Consent Obtained Additional Comments: Discussed case with Dr. Martini. Given need for repair of both right hip and ankle, will opt for GA. Consented patient for right popliteal and adductor canal nerve block for post op pain control if warranted. History Surgery Operation Date: 08/25/23 10:55 Proposed Procedures p Right Retrograde Femoral Nail - Zeeshan Martini MD s Open Reduction Internal Fixation Right Ankle - Zeeshan Martini MD Height/Weight Height: 5 ft 9 in Weight: 101.8 kg Allergies Allergy/AdvReac Type Severity Reaction Status Date / Time No Known Allergies Allergy None Verified 08/23/23 21:14 Medications Home Medications Medication Instructions Recorded Confirmed Last Taken Focus Eye Vitamins 1 tab PO BID 10/03/18 08/23/23 04/13/20 cholecalciferol (vitamin D3) 25 1,000 unit PO HS 10/03/18 08/23/23 12/08/21 21:00 mcg (1,000 unit) capsule (Vitamin D3) glucosamine sulfate 500 mg tablet 1,000 mg PO QAM 10/03/18 08/23/23 11/25/21 09:00 (Glucosamine) [id number] 300 mcg-K 60 1 tab PO HS 10/03/18 08/23/23 12/07/21 21:00 mcg-lycop 600 mcg-lutein 300 mcg tablet (Centrum Silver Men) zinc 50 mg tablet 50 mg PO HS 04/14/20 08/23/23 12/08/21 21:00 lactobacillus combination no.4 3 3,000 mmu cells PO QAM 04/29/21 08/23/23 Unknown billion cell capsule (Probiotic) pantoprazole 40 mg tablet,delayed 40 mg PO BID #60 tabs 07/22/22 08/23/23 Unknown release fluoxetine 20 mg capsule (Prozac) 20 mg PO HS #90 caps 12/04/22 08/23/23 Unknown levothyroxine 50 mcg capsule 50 mcg PO DAILY #90 caps 01/20/23 08/23/23 Unknown pseudoephedrine HCl 120 mg 120 mg PO BID 30 days #60 tabs 02/04/23 08/23/23 Unknown tablet,extended release (Sudafed 12 Hour) tamsulosin 0.4 mg capsule 0.4 mg PO HS #90 caps 03/10/23 08/23/23 Unknown albuterol sulfate 90 mcg/actuation 2 puff inhalation Q6H PRN 04/22/23 08/23/23 Unknown aerosol inhaler shortness of breath or wheezing #8.5 grams gabapentin 100 mg capsule 100 mg PO BID PRN cough #60 caps 05/31/23 08/23/23 Unknown atorvastatin 10 mg tablet 10 mg PO DAILY #30 tabs 07/19/23 08/23/23 Unknown metformin 750 mg tablet,extended 750 mg PO BID #180 tabs 07/23/23 08/23/23 Unknown release 24 hr azelastine 137 mcg (0.1 %) nasal 2 spray intranasal BID PRN nasal 08/12/23 08/23/23 Unknown spray aerosol congestion #30 mL ipratropium bromide 21 mcg (0.03 2 spray intranasal TID PRN 08/12/23 08/23/23 Unknown %) nasal spray postnasal drip #30 mL albuterol sulfate 90 mcg/actuation 2 puff inhalation Q6 PRN Shortness 08/23/23 08/23/23 Unknown aerosol inhaler Of Breath Or Wheezing chlorpheniramine maleate 4 mg 4 mg PO Q12H PRN Allergy Symptoms 08/23/23 08/23/23 Unknown tablet (Allergy Relief (chlorpheniramine)) fluticasone propionate 50 1 spray intranasal BID PRN Nasal 08/23/23 08/23/23 Unknown mcg/actuation nasal Congestion spray,suspension (Flonase Allergy Relief) Active Medications Generic Name Dose Route Start Last Admin Trade Name Freq PRN Reason Stop Dose Admin Acetaminophen 650 mg 08/24/23 04:01 08/24/23 05:17 Acetaminophen 325 Mg Tab PO 09/23/23 04:00 650 mg Q4H PRN Administration Pain or Fever Fluoxetine HCl 20 mg 08/24/23 21:00 08/24/23 20:04 Fluoxetine Hcl 20 Mg Cap PO 09/23/23 20:59 20 mg HS JESUS Administration Hydromorphone HCl 0.5 mg 08/23/23 23:39 08/24/23 20:03 Hydromorphone Inj 0.5 Mg/0.5 Ml Syr IV 09/06/23 23:38 0.5 mg Q3H PRN Administration Severe Pain (Scale 7, 8, 9,10) Potassium Chloride/Sodium Chloride 20 meq in 1,000 mls @ 80 mls/hr 08/24/23 23:59 08/24/23 23:37 Normal Saline W/20 Meq Kcl IV 09/23/23 23:58 80 mls/hr .[id number] JESUS Administration Protocol Lactated Ringer's 1,000 mls @ 15 mls/hr 08/25/23 10:15 08/25/23 10:12 Lr IV 09/24/23 10:14 15 mls/hr .Q24H JESUS Administration Insulin Aspart 0 units 08/25/23 00:00 08/25/23 05:32 Insulin Aspart Per Unit Charge SC 09/23/23 11:29 Not Given Q6 JESUS Oxycodone HCl 5 mg 08/24/23 09:41 08/25/23 09:14 Oxycodone Hcl Ir 5 Mg Tab (Immediate Release) PO 09/07/23 09:40 5 mg Q4H PRN Administration moderate to severe pain Pantoprazole Sodium 40 mg 08/24/23 21:00 08/25/23 09:14 Pantoprazole 40 Mg Tab PO 09/23/23 20:59 40 mg BID JESUS Administration Tamsulosin HCl 0.4 mg 08/24/23 21:00 08/24/23 20:04 Tamsulosin Hcl 0.4 Mg Cap PO 09/23/23 20:59 0.4 mg HS JESUS Administration Zinc Sulfate 220 mg 08/24/23 21:00 08/24/23 20:04 Zinc Sulfate 220 Mg Capsule PO 09/23/23 20:59 220 mg HS JESUS Administration NPO Date Last Intake of Fluids: 08/24/23 Time Last Intake of Fluids: 17:00 Date Last Intake of Solids: 08/24/23 Time Last Intake of Solids: 17:00 Past Medical History Medical History (Updated 08/24/23 @ 03:58 by Loki Kerr MD) Chronic rhinitis Mild persistent asthma GERD (gastroesophageal reflux disease) History of necrotising fasciitis Occurred around 2013 - initially started in buttocks area with abscess- had extensive surgery to remove No issues since that time Encounter for pre-operative examination History of kidney stones No recent issues Prediabetes Hgb A1C 6.8 on 11/11/21 (pt in DM range) Hypothyroidism Macular degeneration Hyperlipidemia Left arm pain Neck pain Subdural hematoma S/P FALLING 2014 (NO INTERVENTION NEEDED) No current issues HTN (hypertension) BPH (benign prostatic hypertrophy) Exercise / Class Metabolic Activity III < 4 Walking/Shop/Light housework Past Family History Family History Mother Family history of diabetes mellitus Breast cancer Diabetes Sister Breast cancer Brother Diabetes Other Family history non-contributory No family history of adverse response to anesthesia Denies family history of Ovarian cancer Prostate cancer Myocardial infarction Colorectal cancer Hypertension Past Surgical History Surgical History History of surgery perirectal abscess History of hernia repair (~10/04/20) @ [facility] History of reversal of ileostomy History of arthroscopy of left shoulder (~02/21/20) @ [facility] Hx of transurethral resection of prostate History of colonoscopy History of herniorrhaphy H/O eye surgery RT RETINA REPAIR History of colon resection hx of ileostomy--reversal done Past Anesthesia History No Hx of Anesthesia Complications and No Family Hx of Anesthesia Complications History of PONV No Hx of PONV and No Hx of Motion Sickness Social History Smoking Status: Never smoker Do You Dip or Chew Tobacco: No Hx Alcohol Use: No Hx Substance Use: No substance use type: prescription drug Review of Systems ROS Unobtainable: All systems reviewed & are unremarkable except as noted in HPI & below Physical Exam Vital Signs Last Vital Signs Temp 36.9 C 08/25/23 07:46 Pulse 89 08/25/23 07:46 Resp 18 08/25/23 07:46 BP 95/61 L 08/25/23 07:46 Pulse Ox 93 08/25/23 07:46 O2 Del Method Room Air 08/25/23 07:46 Constitutional no acute distress ENMT Mouth: no TMJ abnormality Thyromental Distance: > or= 3.5 Finger Breadths Mallampati Class: II Neck normal visual inspection and trachea midline; neck extension not limited Respiratory normal respiratory effort Auscultation: lungs clear to auscultation bilaterally Cardiovascular Rate/Rhythm: regular rate and regular rhythm Heart Sounds: no murmur Musculoskeletal Spine: normal cervical ROM Extremities: full ROM of extremities Neurologic moves all extremities Psychiatric Orientation: alert and oriented x 3 Testing Laboratory Results 08/25/23 06:44 08/25/23 06:44 PT 11.6 Seconds (9.0-12.0) 08/25/23 06:44 INR 1.1 (0.9-1.1) 08/25/23 06:44 APTT 36 Seconds (21-31) H 08/25/23 06:44 Hemoglobin A1c 7.0 % (4.5-5.6) H 08/24/23 06:39 08/25/23 08/24/23 05:30 23:35 POC Glucose 145 H 174 H
[2023-08-25] MEDS ORDERED: ONDANSETRON INJ 2 MG/ML 2 ML VIAL IV PRN ×2 (10:31→15:54)
[2023-08-25] MEDS ORDERED: ePHEDrine sulfate 50 MG/ML AMP IV PRN (10:31)
[2023-08-25] MEDS ORDERED: fentaNYL citrate PF 100 MCG/2 ML VIAL IV PRN (10:31)
[2023-08-25] MEDS ORDERED: HYDROmorphone INJ 1 MG/ML SYRINGE IV PRN (10:31)
[2023-08-25] MEDS ORDERED: ATROPINE SULFATE 0.1 MG/ML 10ML SYR IV PRN (10:31)
[2023-08-25] MEDS ORDERED: ceFAZolin 2,000 MG/15 ML IV PUSH IV ONE (10:50)
[2023-08-25] MEDS ORDERED: BUPIVACAINE/EPINEPHRINE 0.5% MPF 1:200,000 30 ML VIAL ONE (10:55)
[2023-08-25] MEDS ORDERED: ceFAZolin 2000MG 2,000 MG/15 ML SYR IV SCH (11:00)
[2023-08-25] MEDS ORDERED: KETAMINE HCL 10MG/ML SYR ONE (11:00)
--- NOTE | 2023-08-25 11:11 | History & Physical Bridge Note ---
Date of Service August 25, 2023 History & Physical Bridge Note I have examined the patient, reviewed the History & Physical and in the interval since the performance of the History & Physical I have noted the following changes of clinical significance: no changes noted
[2023-08-25] MEDS ORDERED: ACETAMINOPHEN 1000 MG/100 ML IV IV ONE (11:36)
[2023-08-25] MEDS ORDERED: LIDOCAINE 2% 2 ML VIAL/AMP(20MG/ML) INFIL ONE (12:59)
[2023-08-25] MEDS ORDERED: ROCURONIUM BROMIDE 10 MG/ML 5 ML VIAL IV ONE (12:59)
[2023-08-25] MEDS ORDERED: ONDANSETRON INJ 2 MG/ML 2 ML VIAL ONE (13:01)
[2023-08-25] MEDS ORDERED: HYDROmorphone INJ 2 MG/ML SYR/VIAL ONE (13:01)
[2023-08-25] MEDS ORDERED: ePHEDrine sulfate 50 MG/ML AMP ONE (13:01)
[2023-08-25] MEDS ORDERED: GLYCOPYRROLATE 0.2 MG/ML VIAL ONE (13:01)
[2023-08-25] MEDS ORDERED: PHENYLEPHRINE 100MCG/ML 10ML SYR IV ONE (13:01)
[2023-08-25] MEDS ORDERED: DEXAMETHASONE SOD INJ 4 MG/ML VIAL ONE (13:01)
[2023-08-25] MEDS ORDERED: SUGAMMADEX SODIUM 200 MG/2 ML VIAL IV ONE (14:06)
--- NOTE | 2023-08-25 14:39 | Fluoroscopy Report ---
FL ankle RT min 3V RTN CLINICAL HISTORY: ORIF RIGHT ANKLE COMPARISON STUDY: Right ankle radiographs August 23, 2023. FLUOROSCOPY TIME: 9 seconds. Ka, r: 0.2558 mGy FLUOROSCOPIC IMAGES: 4 FINDINGS: Fluoroscopy was provided during open reduction and internal fixation of the distal right fi bular fracture with plate and screws. Fracture alignment appears anatomic. Hardware is intact. No une xpected radiopaque foreign bodies are present. Medial ankle mortise widening is no longer identified. IMPRESSION: Fluoroscopy provided during open reduction and internal fixation of the distal right fib ular fracture. ACT 112: Negative or not required by law. Electronically signed by: Rick Cotto M.D. 08/25/2023 2:38 PM
--- NOTE | 2023-08-25 14:50 | Operative Report ---
PG Post Operative Report Pre & Post Diagnosis Operation Date: 08/25/23 10:55 Pre-Op Diagnosis: RIGHT KNEE PERIPROSTHETIC FEMR FRACTURE, RIGHT BIMALLEOR ANKLE FRACTURE Post-Op Diagnosis: RIGHT KNEE PERIPROSTHETIC FEMUR FRACTURE, RIGHT BIMALLEOLAR ANKLE FRACTURE I identified the patient and participated in the time-out.: Yes Procedure Operation Date: 08/25/23 10:55 Actual Procedures p Right Femur Retrograde ORIF + Femoral Nail(Right) - Zeeshan Martini MD s Open Reduction Internal Fixation Right Ankle - Zeeshan Martini MD Surgeon Zeeshan Martini MD Corn Crop Supervisor Hermilo Ugalde PA-C Estimated Blood Loss 100 (combined EBL for both femoral and ankle per surgeon ) Findings Consistent with Post-Op Diagnosis Operative findings on the right femur revealed a comminuted metaphyseal periprosthetic femur fracture. The femoral component is well-fixed. The ankle revealed an unstable Hsarif B ankle fracture with deltoid ligament injury. With stressing of the ankle there was clear gapping of the medial clear space Specimens None Anesthesia Type General Complications none Disposition Accompanied Patient To Recovery: No Indications Patient is an 82-year-old fairly active gentleman is a year and half out from a knee replacement. He sustained a fall 2 days ago was. They had acute onset pain in his leg and could not walk. Brought to emergency room where x-rays of the right distal femur periprosthetic femur fracture. He also had an unstable Sharif B ankle fracture with deltoid ligament injury and a posterior malleolus fracture. Patient was admitted by the hospitalist service, medically optimized and indicated for surgical repair. Description of Procedure Operative implants consisted of: Femoral nailing components consisted of: 1. Synthes 12 mm x 340 mm retrograde femoral nail. 2. 11 mm x 65 mm of distal spiral blade. 3. 5.0 mm x 60 mm distal interlocking screw. 4. 42 mm x 5 mm proximal interlocking screw. 5. 0 mm retrograde femoral nail in. Right ankle implants consisted of: 1. Synthes 10 hole one third semitubular plate. 2. 22 mm partially-threaded cancellous 4.0 lag screw x 1. 3. 3.5 fully threaded cortical screws x 4. 4. 4.0 fully threaded cancellous screws x 3. The patient was taken the operating, identified, placed on the operating table in supine position but all contact areas were properly padded. IV antibiotics 5 by anesthesia team. General anesthetic was implemented. The right lower extremity splint was then removed. X-ray was then brought in and I stressed the ankle. There was clear gapping of the medial clear space indicating that the ankle needed to be surgically fixed as well as the femur. The right lower extremity was then scrubbed with Hibiclens and then prepped with ChloraPrep and draped in usual sterile fashion. Attention was first drawn toward fixing the femur fracture. A longitudinal incision made over the anterior aspect of the knee using a previous total knee incision. Sharp dissection Through subcutaneous tissue down the extensor mechanism. A medial parapatellar arthrotomy incision was made. I opened this up just enough to subluxate the kneecap and expose the fracture. We tried to manipulate this but had difficulty reducing this and hold it reduced. I used a large reduction clamp to a clamp across the fracture site and was able to nicely reduce it. This was verified fluoroscopically. I then placed a guidewire through the intercondylar box under fluoroscopic guidance in the central aspect of the femur. This is advanced down the femur. We overreamed this with a 13 mm reamer. A ball-tipped guidewire was then placed down the canal and nail length was measured. A 3 and 40 mm nail was selected. I then reamed sequentially in 1 mm increments from 10 mm to 13 mm and then reamed up to 13-1/2. A 340 mm x 12 mm trochanteric nail was then placed through the box of the implant. This was tapped into position. This is verified fluoroscopically. I then placed the distal interlocking screw using the guide followed by the spiral helical blade through a lateral stab incision. We then added the distal setscrew. Attention drawn to the proximal interlocking. Using the perfect little traverse technique a stab incision was made over the proximal femur directly over the dynamic hole. Blunt dissection Through subcutaneous tissues. I then drilled under fluoroscopic guidance and placed a screw. Some final x-rays were obtained. The fracture was nicely reduced. It was very stable to exam. We irrigated extensively. I did inject locally with 30 cc of 5% Marcaine with epinephrine. Extensor Metros then closed with combination 1 PDS suture #1 Vicryl suture in a [id number] fashion. The subcutaneous tissues of all wounds were then closed with 2 Dexon suture in a buried interrupted fashion and skin was closed skin gordon. The leg was then cleaned and dried and sterile dressing was Xeroform, 4 fours, ABD pad, sterile cast padding, Nas bandage were applied. Attention drawn to the ankle. All new set up was used for the ankle. We took all the drapes down. We reprepped the ankle and lower leg area with ChloraPrep. The right ankle was then prepped and draped in usual sterile fashion. A direct lateral approach to the fibula was then performed through a longitudinal incision. Sharp passes Through the subcutaneous tissues down to the fibula itself. We exposed the fracture. I reduced and held anatomically with 2 reduction clamps. A single 4.0 partially-threaded cancellous lag screw was placed across the fracture site. I then contoured a 10 hole one third tubular plate to the lateral aspect the fibula. Was fixed proximally with 3.5 fully threaded cortical screws and distally with three 4.0 fully threaded cancellous screws. X-rays brought in. I stressed the ankle and it was stable to stressing. There is no gapping of the medial clear space. I therefore we proceeded with closing. I injected locally with 30 cc of half percent Marcaine with epinephrine. I irrigated extensively. The periosteum of the plate was then closed with 0 Vicryl suture in a [id number] fashion for the subcutaneous tissue was closed with 2 Dexon suture in buried interrupted fashion skin was closed with 3-0 nylon suture in simple fashion. The leg was then cleaned and dried and sterile dressing was Xeroform, 4 fours, sterile cast padding and a well-padded posterior and stirrup splint were applied. The patient then brought out of general esthesia and transferred to the recovery room in stable condition. The patient tolerated the procedure well and there were no complications. Hermilo Ugalde, my physician assistant product manager, was present for the entire procedure. His assistance was required for proper patient positioning, prepping and draping, surgical exposure, perform the technical details of the operation, placement of the hardware, closure of the incision sites and placement of sterile bandages. I attest to the content of the Intraoperative Record and any orders documented therein. Any exceptions are noted below.
--- NOTE | 2023-08-25 14:55 | Fluoroscopy Report ---
FL femur RT 2V CLINICAL HISTORY: RIGHT RETROGRADE FEMORAL NAIL TECHNIQUE: 4 views were obtained with the C-arm in the OR with the above procedure. Total fluoroscopy time was 1 minute 17 seconds. Radiation dose was 12.37 mGy. Comparison: Comparison is made to femur radiograph 08/23/2023 FINDINGS/IMPRESSION: Intraoperative images were obtained of right retrograde femoral nail placement. Please correlate with intraoperative fluoroscopy and operative report. ACT 112: Negative or not required by law. Electronically signed by: Hieu Worley M.D. 08/25/2023 2:53 PM
--- NOTE | 2023-08-25 15:04 | Anesthesiology Progress Note ---
Date of Service August 25, 2023 Anesthesia Post Procedure Vital Signs Vital Signs: Temp Pulse Pulse Resp BP Pulse Ox O2 Del Method 08/25/23 14:55 92 H 12 121/72 97 Oxymask 08/25/23 14:45 100 H 12 133/51 L 98 Oxymask 08/25/23 14:35 36.0 C L 104 H 14 139/83 95 Oxymask 08/25/23 07:46 36.9 C 89 18 95/61 L 93 Room Air 08/24/23 19:48 Room Air 08/24/23 19:23 37.4 C 90 18 114/65 92 Room Air O2 Flow Rate 08/25/23 14:55 4 08/25/23 14:45 4 08/25/23 14:35 6 08/25/23 07:46 08/24/23 19:48 08/24/23 19:23 Pain Intensity Right Leg: Pain Intensity: 4 Transfer of Care Handoff Completed per policy Notes Mental Status: alert / awake / arousable Patient Amnestic to Procedure: Yes Nausea / Vomiting: adequately controlled Pain: adequately controlled Airway Patency, RR, SpO2: stable & adequate BP & HR: stable & adequate Hydration State: stable & adequate Anesthetic Complications: no major complications apparent
[2023-08-25] MEDS ORDERED: ALUMINUM/MAGNESIUM SUSP 30 ML UDC PO PRN (15:54)
[2023-08-25] MEDS ORDERED: bisacodyL 10 MG SUPP PR PRN (15:54)
[2023-08-25] MEDS ORDERED: NALOXONE HCL 0.4 MG/1 ML VIAL/CARP IV PRN (15:54)
[2023-08-25] MEDS ORDERED: SODIUM CHLORIDE 0.9% 1,000 ML IV SCH (15:54)
[2023-08-25] MEDS ORDERED: oxyCODONE HCL IR 5 MG TAB (IMMEDIATE RELEASE) PO PRN (15:54)
[2023-08-25] MEDS ORDERED: TAMSULOSIN HCL 0.4 MG CAP PO PRN (15:54)
[2023-08-25] MEDS ORDERED: METOCLOPRAMIDE HCL INJ 5 MG/ML 2 ML VIAL IV PRN (15:54)
[2023-08-25] MEDS ORDERED: PHARMACY GLYCEMIC MGMT CONSULT PRN (15:54)
[2023-08-25] MEDS ORDERED: MAGNESIUM HYDROXIDE SUSP 30 ML UDC PO PRN (15:54)
[2023-08-25] MEDS ORDERED: Nursing to Pharmacy Communication SCH (16:00)
[2023-08-25] MEDS: NSS + 20MEQ KCL 20 MEQ/1,000 ML BAG IV SCH (16:11)
[2023-08-25] MEDS: ASCORBIC ACID 500 MG TAB PO SCH (17:12)
[2023-08-25] MEDS: KETOROLAC TROMETHAMINE 15 MG/ML VIAL IV SCH ×2 (17:13→22:07)
[2023-08-25] MEDS: FLUoxetine HCL 20 MG CAP PO SCH (20:10)
[2023-08-25] MEDS: ZINC SULFATE 220 MG CAPSULE PO SCH (20:10)
[2023-08-25] MEDS: TAMSULOSIN HCL 0.4 MG CAP PO SCH (20:10)
[2023-08-25] MEDS: ASPIRIN 81 MG ECTAB PO SCH (20:11)
[2023-08-25] MEDS: SENNA 8.6 MG TAB PO SCH (20:11)
[2023-08-25] MEDS: DOCUSATE SODIUM 100 MG CAP PO SCH (20:11)
[2023-08-25] MEDS: ceFAZolin 2000MG 2,000 MG/15 ML SYR IV SCH (20:16)
[2023-08-25 20:35] LABS: Appearance Urine Clear (Clear); Bacteria Urine Automated Negative (Negative); Bilirubin Urine Negative (Negative); Blood Urine Trace (Negative); Color Urine Yellow; Glucose Urine UA 3+ (Negative); Ketones Urine 1+ (Negative); Leukocyte Esterase Urine Negative (Negative); Nitrite Urine Negative (Negative); Protein Urine Trace (Negative); Specific Gravity Urine 1.021 (1.000-1.030); Urobilinogen Urine Negative (Negative); pH Urine 5.5 (4.5-7.5)
[2023-08-25] MEDS ORDERED: DOCUSATE SODIUM 100 MG CAP PO SCH (21:00)
[2023-08-25] MEDS: ACETAMINOPHEN 500 MG TAB PO SCH (21:22)
[2023-08-25] MEDS ORDERED: LANTUS PER UNIT CHARGE SC ONE (21:30)
[2023-08-26] MEDS: ceFAZolin 2000MG 2,000 MG/15 ML SYR IV SCH (04:13)
[2023-08-26] MEDS: KETOROLAC TROMETHAMINE 15 MG/ML VIAL IV SCH ×5 (04:13→22:04)
[2023-08-26] MEDS: INSULIN ASPART PER UNIT CHARGE SC SCH ×5 (04:56→22:00)
[2023-08-26] MEDS: ACETAMINOPHEN 500 MG TAB PO SCH ×3 (05:00→21:52)
[2023-08-26 08:15] LABS: Basophils # (auto) 0.02 K/uL (0.00-0.20); Basophils % (auto) 0.1 %; Eosinophils # (auto) 0.01 K/uL (0.00-0.50); Eosinophils % (auto) 0.1 %; Hematocrit (blood only) 31.3 % (42.0-52.0); Hemoglobin 10.9 g/dl (14.0-18.0); Immature Granulocytes # (auto) 0.07 K/uL (0.01-0.20); Immature Granulocytes % (auto) 0.5 %; Lymphocytes # (auto) 1.48 K/uL (1.20-3.40); Lymphocytes % (auto) 10.4 %; Mean Corpuscular Hemoglobin 31.1 pg (25.0-34.0); Mean Corpuscular Hgb Conc 34.8 g/dL (32.0-36.0); Mean Corpuscular Volume 89.4 fL (80.0-100.0); Mean Platelet Volume 8.6 fL (9.4-12.4); Monocytes # (auto) 1.13 K/uL (0.11-0.59); Monocytes % (auto) 7.9 %; Neutrophils # (auto) 11.58 K/uL (1.40-6.50); Platelet Count 278 K/uL (130-400); RDW Coefficient of Variation 12.8 % (11.5-14.5); RDW Standard Deviation 42.1 fL (36.4-46.3); White Blood Count 14.29 K/ul (4.8-10.8)
--- NOTE | 2023-08-26 08:19 | Hospitalist Progress Note ---
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 Acute comminuted mildly displaced oblique distal right fibular fracture. Acute minimally displaced fracture the posterior distal right tibia with intra- articular extension. Immobilizer in place for now Orthopedics consulted s/p OR w/ Dr Martini on 08/25 for the following procedures: * p Right Femur Retrograde ORIF + Femoral Nail(Right) - Zeeshan Martini MD * s Open Reduction Internal Fixation Right Ankle - Zeeshan Martini MD EBL 100cc WBC elevation suspected stress/surgery (had been elevated pre-op but suspected same, neg UA/CXR for infectious symptoms/afebrile and was trending down) Hgb 12.4--> 10.9, acute blood loss anemia from surgery as well as dilutional aspect from IVF pre/post-op and will monitor Pain control, antiemetics as needed - adding topical voltaren to shoulder qid Bowel regimen - passing gas, no BM yet. Monitor DVT proph: SCDs, ASA 81mg BID PT/OT consults pending and patient agreeable to rehab. CM to follow (2) Fracture of distal end of fibula: Plan: as above, orthopedics on consult and planning for OR today (3) Fall from standing: Plan: Also noting his right ankle imaging w/ Mild medial ankle mortise widening Ortho/surgery as outlined above (4) Fall from slipping on ice: Plan: as above, mechanical fall. no syncope/pre-syncope reported (5) Mild persistent asthma: Plan: Mild persistent asthma at baseline Continue home inhalers as needed No wheezing on exam, 94% on RA (6) Diabetes: Plan: A1c 7.0 Metformin on hold, BSG AC/HS, sliding scale insulin while inpatient. BSGs acceptable. May need adjustment if steroids w/ surgery. DM diet when able to eat post-op Monitor (7) GERD (gastroesophageal reflux disease): Plan: Chronic, stable. No increased symptoms reported Continue pantoprazole Hypothyroidism TSH 7.45 in July. Per PCP note in Jul 2022, patient had run out of levothyroxine 2 months prior. (TSH was 6.9 in December earlier that year to note) Continue Synthroid 50mcg daily for now but rec repeating levels w/ PCP outpatient and increase dosing if needed (8) Shoulder pain, right: Plan: From fall Xray shoulder (R) imaging w/o acute fracture or subluxation No ecchymosis, honey grader and blender strength intact. PT as above Ice/voltaren, pain control. Monitor Plan continued inpatient stay awaiting therapy evals (likely need for rehab). CM to follow Admission and Anticipated Discharge Date Admission Date: August 23, 2023 Supervising Physician Co-Signing Physician Notes The patient was not seen by me. The chart was reviewed. Case discussed with ALYSSA Santana. Agree with assessment and plan Subjective Eval this morning, had a little confusion w/ anesthesia last evening but completely resolved this morning. Pain to leg much improved, sensation intact, cast in place. Not yet evaluated by therapy, consults placed post-op last evening. Having some RIGHT shoulder discomfort, honey grader and blender strenght intact. discussed topical voltaren - Notes he has used this in the past. Will order. Ice in place at present. To alert of any need for escalation in pain control. eating/drinking without issue. Passing gas but no BM yet. CM to follow therapy evals, patient agreeable to rehab. Questions/concerns addressed at this time. Physical Exam 2 Physical Exam: General: WD/WN male resting in bed, NAD, ice pack to R shoulder due to pain HEENT: head atraumatic, normocephalic, mmm, trachea midline Resp: even, unlabored, slightly diminished in the bases (IMPROVED), no significant w/c/r, on room air CV: RRR, no significant mrg, no pitting edema/calf tenderness GI: +BS, slight distension but soft/NT MSK/Neuro: RLE in cast, toes mobile, cap refill wnl dorsiflexion/plantar flexion intact on the left, sensation intact/toes mobile/full strength R shoulder w/ some tenderness at AC joint, no obvious bruising/ecchymosis or erythema, honey grader and blender strength intact, fingers mobile, pulse palpable no focal deficit/slurred speech, answering questions appropriately Psych: AOx3, cooperative with exam Results & Data Results & Data Vital Signs (Past 12 Hours) Vital Signs Temp Pulse Resp BP Pulse Ox O2 Del Method 01/25/24 07:41 36.9 C 73 16 113/64 94 Room Air 08/26/23 07:15 Room Air 08/26/23 03:10 36.7 C 71 17 117/71 94 Room Air 08/25/23 23:13 36.6 C 76 16 126/75 96 Room Air Laboratory Results 08/26/23 08:00 PG Care Time/CCT Total # of Minutes Spent Total Time Spent with Patient: Total time spent is greater than 50% in coordination of care (as documented) at patient's floor/unit and/or counseling patient: Coding Level of Care Code 93984 SUB INP/OBS CARE 2/35MIN Diagnoses Periprosthetic fracture of knee M97.9XXA Fracture of distal end of fibula S82.839A Fall from standing W19.XXXA Fall from slipping on ice W00.9XXA Mild persistent asthma J45.30 Diabetes E11.9 GERD (gastroesophageal reflux disease) K21.9 Shoulder pain, right M25.511
[2023-08-26 08:43] LABS: Albumin Level 3.6 gm/dl (3.4-5.0); BUN Creatinine Ratio 15.5 (10-20); Calcium 8.5 mg/dl (8.6-10.3); Est GFR (African American) 93.2 ml/min; Est GFR (Non-African American) 80.4 ml/min; Phosphorus 2.4 mg/dl (2.5-4.9); Potassium 4.3 mmol/L (3.5-5.1)
[2023-08-26 08:44] LABS: Partial Thromboplastin Ratio 1.1; Partial Thromboplastin Time 32 Seconds (21-31); Prothrombin Time 11.4 Seconds (9.0-12.0)
[2023-08-26] MEDS: ASPIRIN 81 MG ECTAB PO SCH ×2 (08:51→21:51)
[2023-08-26] MEDS: MULTIVITAMIN TAB PO SCH (08:52)
[2023-08-26] MEDS: ASCORBIC ACID 500 MG TAB PO SCH ×2 (08:52→16:46)
[2023-08-26] MEDS: PANTOprazole 40 MG TAB PO SCH ×2 (08:52→21:51)
[2023-08-26] MEDS: POLYETHYLENE (MIRALAX) 17 GM PACK PO SCH (08:53)
[2023-08-26] MEDS: LACTATED RINGER'S 1,000 ML IV SCH (09:00)
[2023-08-26] MEDS: DOCUSATE SODIUM 100 MG CAP PO SCH ×2 (09:00→21:51)
--- NOTE | 2023-08-26 09:47 | Pharmacy Report ---
Pharmacy Glycemic Short Note 2 - Date of Service August 26, 2023 - Glycemic Short BSG Results (Last 24 hours): 08/25/23 08/25/23 08/25/23 16:28 20:07 23:22 Glucose POC Glucose 196 H 251 H 212 H 08/26/23 08/26/23 08/26/23 04:08 07:33 08:00 Glucose 133 H POC Glucose 162 H 127 H OUTPATIENT ANTIDIABETIC REGIMEN: * metformin 750mg BID * HbA1c 7% (08/24/23) ASSESSMENT: * Rodrigue is an 82 YOM admitted with a femur fracture POD #1 ORIF with a history of prediabetes (although recent A1C suggests DM). * Fasting BSG within goal range this AM, received dexamethasone 8mg IV in OR yesterday, covered with 10 units of Lantus this AM. Will hold of on basal for now as hyperglycemic effects of the steroids should be wearing off. No ongoing steroids ordered at this time. * BSGs elevated yesterday evening, Novolog tightened, consider loosening with lunch due to clearance of the preoperative steroids. PLAN FOR INPATIENT GLYCEMIC CONTROL: * Hold outpatient oral diabetes medications * Basal insulin * Lantus 10 units SQ x1 yesterday evening, hold off on additional basal for now * Bolus insulin * NovoLog per scale ACHS or Q6hrs while NPO * Goal Range: Low 110 mg/dL - High 140 mg/dL * Correction Factor: 20 mg/dL/unit * Nutritional / Prandial insulin per carb ratio of 1 unit per 7 grams CHO consumed
--- NOTE | 2023-08-26 09:47 | Orthopedic Progress Note ---
Date of Service August 26, 2023 Assessment & Plan (1) Fracture of distal end of fibula: (2) Periprosthetic fracture of knee: Plan Overall he is doing quite well today with good pain control to the right lower extremity. He will work with physical therapy later today to work on ambulation trying to maintain no weightbearing to the right lower extremity. If needed for balance, he may put toe-touch weightbearing status to the right lower extremity but we would like to keep him off of it is much as possible. Anytime that he is up and ambulating, he should be in his knee immobilizer. If he is at rest in bed, he may come out of the knee immobilizer and work on some gentle range of motion from 0-90 with the knee. He should not go any further than 90 degrees of flexion. At his 2-week visit, he will come out of the splint and transition into a walking cast and at that time he may begin weightbearing on the right lower extremity. He is on aspirin for DVT prophylaxis. Depending how physical therapy goes today, short stay at a rehabilitation unit may be recommended. Med ica management per primary. He will follow-up with Dr. Martini in 2 weeks for postoperative care. Charlie Husain was seen and evaluated at bedside this morning resting comfortably no apparent distress. He notes that his pain is well-controlled to the right lower extremity. He currently has his knee immobilizer on as well as his right ankle splinted. He is yet to be out of bed this morning. He has yet to work with physical therapy this morning. He denies any other concerns today. Review of Systems All systems reviewed & are unremarkable except as noted in HPI & below. Physical Exam . Focused examination of the right lower extremity reveals knee immobilizer in place as well as right ankle plaster splint. Able to wiggle all 5 toes. Less than 2-second capillary refill. Normal sensation. Neurovascular intact. Results & Data Results & Data Laboratory Results . Diagnostic Findings . Postoperative x-rays show well alignment of fracture fragments at both the distal femur and distal fibula with hardware in place no signs of screw backout or hardware failure. PG Care Time/CCT Total # of Minutes Spent Total Time Spent with Patient: Total time spent is greater than 50% in coordination of care (as documented) at patient's floor/unit and/or counseling patient: Coding Level of Care Code 56176 Post Operative Follow-Up Diagnoses Fracture of distal end of fibula S82.839A Periprosthetic fracture of knee M97.9XXA
[2023-08-26] MEDS: DICLOFENAC SOD 1% GEL 100 GM TUBE EXT SCH ×4 (10:46→20:34)
[2023-08-26] MEDS: ZINC SULFATE 220 MG CAPSULE PO SCH (21:51)
[2023-08-26] MEDS: SENNA 8.6 MG TAB PO SCH (21:51)
[2023-08-26] MEDS: TAMSULOSIN HCL 0.4 MG CAP PO SCH (21:51)
[2023-08-26] MEDS: FLUoxetine HCL 20 MG CAP PO SCH (21:51)
[2023-08-27] MEDS: KETOROLAC TROMETHAMINE 15 MG/ML VIAL IV SCH ×2 (05:17→12:35)
[2023-08-27] MEDS: ACETAMINOPHEN 500 MG TAB PO SCH ×2 (05:17→12:36)
[2023-08-27 07:41] LABS: Hematocrit (blood only) 28.5 % (42.0-52.0); Hemoglobin 9.8 g/dl (14.0-18.0); Mean Corpuscular Hemoglobin 30.3 pg (25.0-34.0); Mean Corpuscular Hgb Conc 34.4 g/dL (32.0-36.0); Mean Corpuscular Volume 88.2 fL (80.0-100.0); Mean Platelet Volume 8.9 fL (9.4-12.4); Platelet Count 301 K/uL (130-400); RDW Coefficient of Variation 12.9 % (11.5-14.5); RDW Standard Deviation 41.1 fL (36.4-46.3); Red Blood Count 3.23 M/uL (4.70-6.10); White Blood Count 9.35 K/ul (4.8-10.8)
--- NOTE | 2023-08-27 08:07 | Hospitalist Progress Note ---
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 Acute comminuted mildly displaced oblique distal right fibular fracture. Acute minimally displaced fracture the posterior distal right tibia with intra-a rticular extension. Immobilizer in place for now Orthopedics consulted s/p OR w/ Dr Martini on 08/25 for the following procedures: * p Right Femur Retrograde ORIF + Femoral Nail(Right) - Zeeshan Martini MD * s Open Reduction Internal Fixation Right Ankle - Zeeshan Martini MD EBL 100cc WBC elevation suspected stress/surgery (had been elevated pre-op but suspected same, neg UA/CXR for infectious symptoms/afebrile and was trending down) Hgb 12.4--> 10.9, acute blood loss anemia from surgery as well as dilutional aspect from IVF pre/post-op and will monitor Pain control, antiemetics as needed - adding topical voltaren to shoulder qid Bowel regimen - passing gas, no BM yet. Monitor DVT proph: SCDs, ASA 81mg BID PT/OT consults pending and patient agreeable to rehab. CM to follow (2) Fracture of distal end of fibula: Plan: as above, orthopedics on consult and planning for OR today (3) Fall from standing: Plan: Also noting his right ankle imaging w/ Mild medial ankle mortise widening Ortho/surgery as outlined above (4) Fall from slipping on ice: Plan: as above, mechanical fall. no syncope/pre-syncope reported (5) Mild persistent asthma: Plan: Mild persistent asthma at baseline Continue home inhalers as needed No wheezing on exam, 94% on RA (6) Diabetes: Plan: A1c 7.0 Metformin on hold, BSG AC/HS, sliding scale insulin while inpatient. BSGs acceptable. May need adjustment if steroids w/ surgery. DM diet when able to eat post-op Monitor (7) GERD (gastroesophageal reflux disease): Plan: Chronic, stable. No increased symptoms reported Continue pantoprazole Hypothyroidism TSH 7.45 in July. Per PCP note in Jul 2022, patient had run out of levothyroxine 2 months prior. 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 PT as above Ice/voltaren, pain control. Monitor Plan continued inpatient stay awaiting therapy evals (likely need for rehab). CM to follow Admission and Anticipated Discharge Date Admission Date: August 23, 2023 PG Care Time/CCT Total # of Minutes Spent Total Time Spent with Patient: Total time spent is greater than 50% in coordination of care (as documented) at patient's floor/unit and/or counseling patient: Coding Diagnoses Periprosthetic fracture of knee M97.9XXA Fracture of distal end of fibula S82.839A Fall from standing W19.XXXA Fall from slipping on ice W00.9XXA Mild persistent asthma J45.30 Diabetes E11.9 GERD (gastroesophageal reflux disease) K21.9 Shoulder pain, right M25.511
[2023-08-27 08:08] LABS: BUN Creatinine Ratio 20.8 (10-20); Calcium 8.1 mg/dl (8.6-10.3); Creatinine Clr Calc Pharmacy 89.8 ml/min; Est GFR (African American) 99.3 ml/min; Est GFR (Non-African American) 85.7 ml/min; Potassium 3.7 mmol/L (3.5-5.1)
[2023-08-27] MEDS: MULTIVITAMIN TAB PO SCH (08:52)
[2023-08-27] MEDS: PANTOprazole 40 MG TAB PO SCH (08:52)
[2023-08-27] MEDS: POLYETHYLENE (MIRALAX) 17 GM PACK PO SCH (08:52)
[2023-08-27] MEDS: ASCORBIC ACID 500 MG TAB PO SCH (08:52)
[2023-08-27] MEDS: ASPIRIN 81 MG ECTAB PO SCH (08:52)
[2023-08-27] MEDS: DOCUSATE SODIUM 100 MG CAP PO SCH (08:52)
[2023-08-27] MEDS: DICLOFENAC SOD 1% GEL 100 GM TUBE EXT SCH ×2 (08:52→12:35)
[2023-08-27] MEDS: INSULIN ASPART PER UNIT CHARGE SC SCH ×2 (08:53→12:36)
--- NOTE | 2023-08-27 10:23 | Discharge Summary ---
Date of Service August 27, 2023 Admission HPI Per Admitting Provider The patient is an 82-year-old male with a past medical history including right total knee arthroplasty, mild persistent asthma, diabetes mellitus, GERD, hypothyroidism, BPH with LUTS, hyperlipidemia, hypertension and subdural hematoma. He presents to the emergency department with complaint of severe pain in right knee, and unable to bear weight, after a fall on black ice prior to arrival. X-rays in the emergency department showed a periprosthetic distal tibial fracture of the right knee. Patient also reports painful right shoulder, with normal x-rays. He denies any head trauma. Admission Exam Per Admitting Provider The patient is awake, alert and oriented 3, well developed and well nourished, normocephalic and atraumatic, lying in bed and in moderate distress due to right knee pain HEENT--PERRL, EOMI, mucous membranes and oropharynx normal Neck--supple. No JVD. No bruits. Thyroid normal, trachea midline, no adenopathy. Heart--normal S1 and S2. No murmurs, rubs or gallops. Lungs--clear bilaterally, no respiratory distress, no accessory muscle use. Abdomen--normal bowel sounds and soft. Nontender. Nondistended. Obese Extremities--right lower extremity in knee immobilizer Dermatologic--normal skin turgor, normal color, no abnormal lymph nodes, no rash. Neurologic--cranial nerves II through XII grossly intact. Rheumatologic--limited exam Psychiatric--normal affect. Principal Diagnosis Periprosthetic fracture of knee, distal fibula fracture Discharge Exam General: WD/WN male resting in bed, NAD, ready for discharge to rehab HEENT: head atraumatic, normocephalic, mmm, trachea midline Resp: even, unlabored, slightly diminished in the bases (IMPROVED), no significant w/c/r, on room air 95% CV: RRR, no significant mrg, no pitting edema/calf tenderness GI: +BS, slight distension but soft/NT MSK/Neuro: RLE in cast, toes mobile, cap refill wnl dorsiflexion/plantar flexion intact on the left, sensation intact/toes mobile/full strength R shoulder w/ some tenderness at AC joint - improved since voltaren gel no obvious bruising/ecchymosis or erythema, technical assistance consultant strength intact, fingers mobile, pulse palpable no focal deficit/slurred speech, answering questions appropriately Psych: AOx3, cooperative with exam Discharge Data Allergies Allergy/AdvReac Type Severity Reaction Status Date / Time No Known Allergies Allergy None Verified 08/23/23 21:14 Consultations 08/23/23 21:22 Consult Orthopedic Surgery Stat 08/23/23 22:22 ED Decision to Admit Stat Procedures Performed Operation Date: 08/25/23 10:55 Actual Procedures p Right Retrograde Femoral Nail(Right) - Zeeshan Martini MD s Open Reduction Internal Fixation Right Ankle - Zeeshan Martini MD Ordered Studies Femur X-Ray 08/23/23 20:14 XR knee RT 1 or 2V routine, XR femur RT 2V routine CLINICAL HISTORY: right knee pain TECHNIQUE: 2 views of the right knee and 2 views of the right femur were obtained. Comparison: None available at the time of this dictation. FINDINGS: Acute mildly displaced fracture of the distal femur with extension to the anterior aspect of the femoral prosthesis. Patient is status post total knee arthroplasty. A small suprapatellar effusion is seen. Soft tissue swelling is seen about the knee. IMPRESSION: Acute, mildly displaced fracture of the distal femur with extension to the anterior aspect of the femoral prosthesis. The prosthesis otherwise remains intact. Soft tissue swelling is seen. ACT 112: Negative or not required by law. Electronically signed by: Hieu Worley M.D. 08/24/2023 7:54 AM Knee X-Ray 08/23/23 20:14 XR knee RT 1 or 2V routine, XR femur RT 2V routine CLINICAL HISTORY: right knee pain TECHNIQUE: 2 views of the right knee and 2 views of the right femur were obtained. Comparison: None available at the time of this dictation. FINDINGS: Acute mildly displaced fracture of the distal femur with extension to the ante rior aspect of the femoral prosthesis. Patient is status post total knee arthroplasty. A small suprapatellar effusion is seen. Soft tissue swelling is seen about the knee. IMPRESSION: Acute, mildly displaced fracture of the distal femur with extension to the anterior aspect of the femoral prosthesis. The prosthesis otherwise remains intact. Soft tissue swelling is seen. ACT 112: Negative or not required by law. Electronically signed by: Hieu Worley M.D. 08/24/2023 7:54 AM Shoulder X-Ray 08/23/23 20:14 XR shoulder RT min 2V routine CLINICAL HISTORY: fall; right shoulder pain COMPARISON: Chest CT June 11, 2023. FINDINGS: Alignment of the right shoulder is anatomic. No acute fracture. Moderate degenerative changes within the right shoulder are present. IMPRESSION: No fracture or dislocation within the right shoulder. ACT 112: Negative or not required by law. Electronically signed by: Rick Cotto M.D. 08/24/2023 7:16 AM Tibia/Fibula X-Ray 08/23/23 20:14 XR tibia fibula RT 2V CLINICAL HISTORY: right knee pain s/p fall COMPARISON: Right knee radiographs December 09, 2021. FINDINGS: Right knee arthroplasty is noted. There is an acute oblique displaced distal right femoral periprosthetic fracture. Fracture extends through the distal metadiaphysis of the right femur. No proximal right tibial or fibular fracture is noted. There is an acute comminuted mildly displaced oblique distal right fibular fracture as well as an acute minimally displaced fracture of the posterior distal right tibia with intra-articular extension. Medial ankle mortise widening is better depicted on the right ankle radiographs which will be reported separately. IMPRESSION: 1. Acute displaced distal right femoral periprosthetic fracture. 2. Acute comminuted mildly displaced oblique distal right fibular fracture. 3. Acute minimally displaced fracture the posterior distal right tibia with intra-articular extension. ACT 112: Negative or not required by law. Electronically signed by: Rick Cotto M.D. 08/24/2023 7:18 AM Chest X-Ray 08/23/23 20:47 XR chest 1V portable CLINICAL HISTORY: broken femur, ankle, fall COMPARISON STUDY: Chest radiograph April 20, 2023. Chest CT June 11, 2023. FINDINGS: No pneumothorax or pleural effusion is present. No consolidation is identified. There is no evidence for pulmonary edema. Cardiomediastinal silhouette is stable. There has been no significant change in appearance of the chest. IMPRESSION: No acute cardiopulmonary findings. No change in appearance of the chest. ACT 112: Negative or not required by law. Electronically signed by: Rick Cotto M.D. 08/24/2023 7:02 AM Ankle X-Ray 08/23/23 20:59 XR ankle RT 2V CLINICAL HISTORY: Right ankle pain following fall. COMPARISON: None FINDINGS: Mild medial ankle mortise widening is noted. There is an acute minimally displaced fracture of the posterior distal right tibia with intra- articular extension. There is also an acute comminuted mildly displaced oblique fracture of the distal right fibula which extends from the level the tibiotalar articulation 4.5 cm proximally. Right ankle soft tissue swelling is present. Plantar calcaneal spur is incidentally noted. IMPRESSION: 1. Acute comminuted mildly displaced oblique distal right fibular fracture. 2. Acute minimally displaced fracture of the posterior distal right tibia with intra-articular extension. 3. Mild medial ankle mortise widening. ACT 112: Negative or not required by law. Electronically signed by: Rick Cotto M.D. 08/24/2023 6:57 AM Ankle X-Ray 08/25/23 00:00 FL ankle RT min 3V RTN CLINICAL HISTORY: ORIF RIGHT ANKLE COMPARISON STUDY: Right ankle radiographs August 23, 2023. FLUOROSCOPY TIME: 9 seconds. Ka, r: 0.2558 mGy FLUOROSCOPIC IMAGES: 4 FINDINGS: Fluoroscopy was provided during open reduction and internal fixation of the distal right fibular fracture with plate and screws. Fracture alignment appears anatomic. Hardware is intact. No unexpected radiopaque foreign bodies are present. Medial ankle mortise widening is no longer identified. IMPRESSION: Fluoroscopy provided during open reduction and internal fixation of the distal right fibular fracture. ACT 112: Negative or not required by law. Electronically signed by: Rick Cotto M.D. 08/25/2023 2:38 PM Femur X-Ray 08/25/23 00:00 FL femur RT 2V CLINICAL HISTORY: RIGHT RETROGRADE FEMORAL NAIL TECHNIQUE: 4 views were obtained with the C-arm in the OR with the above procedure. Total fluoroscopy time was 1 minute 17 seconds. Radiation dose was 12.37 mGy. Comparison: Comparison is made to femur radiograph 08/23/2023 FINDINGS/IMPRESSION: Intraoperative images were obtained of right retrograde femoral nail placement. Please correlate with intraoperative fluoroscopy and operative report. ACT 112: Negative or not required by law. Electronically signed by: Hieu Worley M.D. 08/25/2023 2:53 PM Hospital Course (1) Periprosthetic fracture of knee: Age-related osteoporotic fractures involving the RIGHT distal femur and right distal tibia and fibula after fall/slip on ice Imaging w/ acute displaced distal right femoral periprosthetic fracture. Acute comminuted mildly displaced oblique distal right fibular fracture. Acute minimal ly displaced fracture the posterior distal right tibia with intra-articular extension. Immobilizer in place for now Orthopedics consulted s/p OR w/ Dr Martini on 08/25 for the following procedures: * p Right Femur Retrograde ORIF + Femoral Nail(Right) - Zeeshan Martini MD * s Open Reduction Internal Fixation Right Ankle - Zeeshan Martini MD EBL 100cc WBC elevation suspected stress/surgery (had been elevated pre-op but suspected same, neg UA/CXR for infectious symptoms/afebrile and was trending down) --> normalized on repeat. Afebrile Hgb 12.4--> 10.9 --> 9.8, acute blood loss anemia from surgery as well as dilutional aspect from IVF pre/post-op but no bleeding reported. No CP/SOB, 95% on RA Pain control, antiemetics as needed, volaren gel to shoulder Bowel regimen - passing gas, no BM yet. No abdominal pain/good bowel sounds on exam and encouraged continued bowel regimen at discharge DVT proph: SCDs, ASA 81mg BID PT/OT consulted and [facility] arranged at discharge Outpt f/u with Dr Martini in 2 weeks (2) Fracture of distal end of fibula: as above, orthopedics consulted and s/p intervention. knee immobilizer in place At his 2-week visit, he will come out of the splint and transition into a walking cast and at that time he may begin weightbearing on the right lower extremity. -- f/u ortho 2 wks as above (3) Fall from standing: Also noting his right ankle imaging w/ Mild medial ankle mortise widening as above (4) Fall from slipping on ice: as above, mechanical fall. no syncope/pre-syncope reported (5) Mild persistent asthma: Mild persistent asthma at baseline Continued home inhalers as needed No wheezing on exam, 95% on RA (6) Diabetes: A1c 7.0 metformin placed on hold and utilizing sliding scale insulin while inpatient and resumed home medications at discharge (7) GERD (gastroesophageal reflux disease): Chronic, stable. No increased symptoms reported and remained on pantoprazole Hypothyroidism TSH 7.45 in July. Per PCP note in Jul 2022, patient had run out of levothyroxine 2 months prior. (TSH was 6.9 in December earlier that year to note) To be on synthroid 50mcg daily however appears had not been ordered on admission --> New RX sent for 50mcg daily and recommend patient have repeat TFT w/ PCP in 4 weeks to see if any adjustment needed (8) Shoulder pain, right: From fall Xray shoulder (R) imaging w/o acute fracture or subluxation No ecchymosis, technical assistance consultant strength intact. PT as above Ice/voltaren, pain control w/ improvement and WB status per orthopedics Plan discharge to [facility] for acute inpatient rehab Total Time Total Time Spent Total Time Spent (In Minutes): 45 Discharge Plan Discharge Items Patient Disposition: Transfer Inpatient Rehab Fac Reason For Visit: RIGHT KNEE PERIPROSTHETIC FRACTURE Discharge Diagnosis: Right Periprosthetic Femur Fracture treated with IM Nail Right Ankle Fracture Goals: You have been hospitalized for an urgent problem which required surgery. During your stay at [facility], we have made an effort to correct the problem that brought you to the hospital while keeping you as comfortable as possible. Surgery and medications were used to bring your condition under control and your discharge instructions will include directions for any medications you should take after leaving the hospital. Please make sure to follow the advice of your surgeon regarding follow up with the surgeon and with your primary care provider. Activity: Per Instructions section Weightbearing: Right toe touch Non-emergency contact: Primary Care Provider and Surgeon Call non-emergency contact if: you have any medication questions, your symptoms worsen, your pain is not controlled and you have a fever Follow-up/Referrals: Parviz Westfall MD [Primary Care Provider] - Zeeshan Martini MD [Physician] - Diet: Heart Healthy Addtl Attending Provider Instructions: You have been hospitalized after a fall and found to have fractures of the knee and distal fibula near the ankle. Orthopedics were consulted and you underwent repair. Instructions for weight bearing are outlined below and you are to continue pain control with Tylenol as needed, oxycodone for breakthrough pain. Please continue aggressive bowel regimen at discharge to prevent constipation. You can continue topical voltaren for pain to the shoulder. IMaging was negative for acute fracture. Please follow up with primary care in the next 7-10 days after discharge to monitor your progress after hospitalization. Please return to the ER with any fevers/chills, chest pain, shortness of breath, bleeding, uncontrolled pain, redness/swelling, or for any other symptoms concerning for you. It has been a pleasure being a part of the medical team providing for you while you have been in the hospital. Take care! Addtl Calibration Tester Provider Instructions: Keep dressing and splint clean, dry, and in place until return to clinic appointment. Keep all pressure off heel to prevent heel sore. Continue to work with physical therapy , maintain no weightbearing to the right lower extremity. If needed for balance, may put toe-touch weightbearing status to the right lowe r extremity but we would like to keep you off of it is much as possible. Anytime you are up and ambulating, you should be in the knee immobilizer. If at rest in bed, may come out of the knee immobilizer and work on some gentle range of motion from 0-90 with the knee. Should not go any further than 90 degrees of flexion. At his 2-week visit, will come out of the splint and transition into a walking cast and at that time may begin weightbearing on the right lower extremity. Continue aspirin 81mg twice daily for DVT prophylaxis. Follow up with orthopedics in 2 weeks. Pending Studies at Discharge: No Stand-Alone Forms: My [facility] [employer] Skilled Items Patient informed of condition?: Yes DNR: No Discharge Level of Care: Acute rehab Communicable Disease: No Discharge Prognosis: Stable Lines: None Urinary Catheter: No Medications and DC Order Prescriptions: New aspirin 81 mg Tablet,Delayed Release (Dr/Ec) 81 mg PO BID 42 Days Qty: 84 0RF acetaminophen [Tylenol Extra Strength] 500 mg Tablet 1,000 mg PO Q8 Qty: 0 0RF oxycodone 5 mg Tablet 5 - 10 mg PO Q4H PRN (Reason: pain) Qty: 0 0RF diclofenac sodium [Voltaren Arthritis Pain] 1 % Gel 2 g EXT QID Qty: 0 0RF polyethylene glycol 3350 [Miralax] 17 gram Powder In Packet 17 g PO DAILY Qty: 14 0RF bisacodyl 10 mg Suppository 10 mg IA DAILY PRN (Reason: constipation) Qty: 7 0RF docusate sodium 100 mg Capsule 100 mg PO BID Qty: 30 0RF sennosides [Senokot] 8.6 mg Tablet 17.2 mg PO HS Qty: 7 0RF Continued fluoxetine [Prozac] 20 mg capsule 20 mg PO HS Qty: 90 3RF atorvastatin 10 mg tablet 10 mg PO DAILY Qty: 30 11RF tamsulosin 0.4 mg capsule 0.4 mg PO HS Qty: 90 3RF metformin 750 mg tablet extended release 24 hr 750 mg PO BID Qty: 180 3RF pantoprazole 40 mg tablet,delayed release (DR/EC) 40 mg PO BID Qty: 60 11RF Probiotic 3 billion cell capsule 3,000 mmu cells PO QAM Rx Instructions: administer with a meal albuterol sulfate 90 mcg/actuation HFA aerosol inhaler 2 puff inhalation Q6H PRN (Reason: shortness of breath or wheezing) Qty: 8.5 3RF gabapentin 100 mg capsule 100 mg PO BID PRN (Reason: cough) Qty: 60 2RF azelastine 137 mcg (0.1 %) aerosol,spray 2 spray intranasal BID PRN (Reason: nasal congestion) Qty: 30 11RF Rx Instructions: administer into each nostril ipratropium bromide 21 mcg (0.03 %) spray,non-aerosol 2 spray intranasal TID PRN (Reason: postnasal drip) Qty: 30 11RF Rx Instructions: administer into each nostril zinc 50 mg Tablet 50 mg PO HS glucosamine sulfate [Glucosamine] 500 mg Tablet 1,000 mg PO QAM cholecalciferol (vitamin D3) [Vitamin D3] 1,000 unit Capsule 1,000 unit PO HS Centrum Silver Men 300-600-300 mcg Tablet 1 tab PO HS Focus Eye Vitamins 1 tab PO BID albuterol sulfate 90 mcg/actuation HFA aerosol inhaler 2 puff INHALATION Q6 PRN (Reason: Shortness Of Breath Or Wheezing) chlorpheniramine maleate [Allergy Relief(chlorpheniramn)] 4 mg tablet 4 mg PO Q12H PRN (Reason: Allergy Symptoms) fluticasone propionate [Flonase Allergy Relief] 50 mcg/actuation spray,suspension 1 spray intranasal BID PRN (Reason: Nasal Congestion) Rx Instructions: administer into each nostril levothyroxine 50 mcg capsule 50 mcg PO DAILY Qty: 90 3RF Changed pseudoephedrine HCl [Sudafed 12 Hour] 120 mg tablet extended release 120 mg PO BID PRN (Reason: nasal congestion) 30 Days Qty: 60 3RF Discharge Orders: Discharge Order (Routine); Ordered 08/27/23 Ordered By: Nicole Momin/Other Patient Handouts: Managing Type 2 Diabetes Admission Data Admit Date/Time: 08/23/23 23:46 Attending Provider: Karina Orellana Admit Provider: Loki Kerr Primary Care Provider: Parviz Westfall Other Providers: Zeeshan Martini; Loki Kerr; [facility] Other Interventions: Discharge Summary Assessment (RN) Last Done: 08/27/23 12:56 Coding Level of Care Code 42728 INP/OBS DISCH >30 MIN Diagnoses Periprosthetic fracture of knee M97.9XXA Fracture of distal end of fibula S82.839A Fall from standing W19.XXXA Fall from slipping on ice W00.9XXA Mild persistent asthma J45.30 Diabetes E11.9 GERD (gastroesophageal reflux disease) K21.9 Shoulder pain, right M25.511
[2023-08-27] MEDS: LACTATED RINGER'S 1,000 ML IV SCH (11:57)
[2023-08-27] MEDS ORDERED: INSULIN ASPART PER UNIT CHARGE SC SCH (16:30)
[2023-08-27] MEDS ORDERED: metFORMIN HCL ER 500 MG TABCR PO SCH (17:00)
== END 2023-08-27 16:25 | DRG 481 ==
LOC: ED 19:53 → SUATTDRO 23:46 → 3N 23:46
DX: W00.0XXA Fall on same level due to ice and snow, initial encounter; I10 Essential (primary) hypertension; E11.9 Type 2 diabetes mellitus without complications; E03.9 Hypothyroidism, unspecified; E78.5 Hyperlipidemia, unspecified; Z96.651 Presence of right artificial knee joint; M97.11XA Periprosthetic fracture around internal prosthetic right knee joint, initial encounter; R39.9 Unspecified symptoms and signs involving the genitourinary system; M25.511 Pain in right shoulder; J45.30 Mild persistent asthma, uncomplicated; N40.1 Benign prostatic hyperplasia with lower urinary tract symptoms; K21.9 Gastro-esophageal reflux disease without esophagitis; Z79.890 Hormone replacement therapy; M80.061A Age-related osteoporosis with current pathological fracture, right lower leg, initial encounter for fracture; M80.051A Age-related osteoporosis with current pathological fracture, right femur, initial encounter for fracture; H35.30 Unspecified macular degeneration; Y99.8 Other external cause status; Z83.3 Family history of diabetes mellitus; Z79.84 Long term (current) use of oral hypoglycemic drugs; Y93.01 Activity, walking, marching and hiking; Z79.899 Other long term (current) drug therapy; D62 Acute posthemorrhagic anemia

== ENCOUNTER 2024-02-21 11:36 | Observation (INO) ==
--- NOTE | 2023-11-18 13:14 | PAT Medication Instructions ---
Medication Instructions Date of Service November 18, 2023 Home Medications Medication Instructions Recorded fluoxetine 20 mg capsule (Prozac) 20 mg PO HS #90 caps 12/04/22 tamsulosin 0.4 mg capsule 0.4 mg PO HS #90 caps 03/10/23 gabapentin 100 mg capsule 100 mg PO BID PRN cough #60 caps 05/31/23 atorvastatin 10 mg tablet 10 mg PO DAILY #30 tabs 07/19/23 metformin 750 mg tablet,extended 750 mg PO BID #180 tabs 07/23/23 release 24 hr ipratropium bromide 21 mcg (0.03 2 spray intranasal TID PRN 08/12/23 %) nasal spray postnasal drip #30 mL acetaminophen 500 mg tablet 1,000 mg (2 x 500 mg) PO Q8 #0 tabs 08/27/23 (Tylenol Extra Strength) diclofenac sodium 1 % topical gel 2 g EXT QID #0 grams 08/27/23 (Voltaren Arthritis Pain) levothyroxine 50 mcg capsule 50 mcg PO DAILY #90 caps 08/27/23 polyethylene glycol 3350 17 gram 17 g PO DAILY #14 ea 08/27/23 oral powder packet (Miralax) pseudoephedrine HCl 120 mg 120 mg PO BID PRN nasal congestion 08/27/23 tablet,extended release (Sudafed 30 days #60 tabs 12 Hour) azelastine 137 mcg (0.1 %) nasal 2 spray intranasal BID PRN nasal 09/15/23 spray aerosol congestion #90 mL oxycodone 5 mg tablet 5 mg PO TID PRN pain #30 tabs 10/11/23 pantoprazole 40 mg tablet,delayed 40 mg PO BID #180 tabs 11/08/23 release Medication List: Focus Eye Vitamins 1 tab PO BID cholecalciferol (vitamin D3) 25 mcg (1,000 unit) capsule (Vitamin D3) 1,000 unit PO HS glucosamine sulfate 500 mg tablet (Glucosamine) 1,000 mg PO QAM [id number] 300 mcg-K 60 mcg-lycop 600 mcg-lutein 300 mcg tablet (Centrum Silver Men) 1 tab PO HS zinc 50 mg tablet 50 mg PO HS lactobacillus combination no.4 3 billion cell capsule (Probiotic) 3,000 mmu cells PO QAM fluoxetine 20 mg capsule (Prozac) 20 mg PO HS tamsulosin 0.4 mg capsule 0.4 mg PO HS gabapentin 100 mg capsule 100 mg PO BID PRN cough atorvastatin 10 mg tablet 10 mg PO DAILY metformin 750 mg tablet,extended release 24 hr 750 mg PO BID ipratropium bromide 21 mcg (0.03 %) nasal spray 2 spray intranasal TID PRN postnasal drip albuterol sulfate 90 mcg/actuation aerosol inhaler 2 puff inhalation Q6 PRN Shortness Of Breath Or Wheezing chlorpheniramine maleate 4 mg tablet (Allergy Relief (chlorpheniramine)) 4 mg PO Q12H PRN Allergy Symptoms fluticasone propionate 50 mcg/actuation nasal spray,suspension (Flonase Allergy Relief) 1 spray intranasal BID PRN Nasal Congestion acetaminophen 500 mg tablet (Tylenol Extra Strength) 1,000 mg (2 x 500 mg) PO Q8h diclofenac sodium 1 % topical gel (Voltaren Arthritis Pain) 2 g EXT QID levothyroxine 50 mcg capsule 50 mcg PO DAILY polyethylene glycol 3350 17 gram oral powder packet (Miralax) 17 g PO DAILY pseudoephedrine HCl 120 mg tablet,extended release (Sudafed 12 Hour) 120 mg PO BID PRN nasal congestion 30 days azelastine 137 mcg (0.1 %) nasal spray aerosol 2 spray intranasal BID PRN nasal congestion oxycodone 5 mg tablet 5 mg PO TID PRN pain pantoprazole 40 mg tablet,delayed release 40 mg PO BID MEDICATION INSTRUCTIONS: Continue as directed azelastine 137 mcg (0.1 %) nasal spray aerosol 2 spray intranasal BID PRN nasal congestion fluticasone propionate 50 mcg/actuation nasal spray,suspension (Flonase Allergy Relief) 1 spray intranasal BID PRN Nasal Congestion ipratropium bromide 21 mcg (0.03 %) nasal spray 2 spray intranasal TID PRN po stnasal drip albuterol sulfate 90 mcg/actuation aerosol inhaler 2 puff inhalation Q6 PRN Shortness Of Breath Or Wheezing (use if needed; BRING TO HOSPITAL) diclofenac sodium 1 % topical gel (Voltaren Arthritis Pain) 2 g EXT QID (do not apply near surgical area after bathing prior to surgery) STOP taking 2 weeks before surgery glucosamine sulfate 500 mg tablet (Glucosamine) 1,000 mg PO QAM DO NOT take the morning of surgery metformin 750 mg tablet,extended release 24 hr 750 mg PO BID Focus Eye Vitamins 1 tab PO BID polyethylene glycol 3350 17 gram oral powder packet (Miralax) 17 g PO DAILY lactobacillus combination no.4 3 billion cell capsule (Probiotic) 3,000 mmu cells PO QAM pseudoephedrine HCl 120 mg tablet,extended release (Sudafed 12 Hour) 120 mg PO BID PRN nasal congestion 30 days chlorpheniramine maleate 4 mg tablet (Allergy Relief (chlorpheniramine)) 4 mg PO Q12H PRN Allergy Symptoms Take morning of surgery With a small sip of water, OTHERWISE NOTHING TO EAT OR DRINK AFTER MIDNIGHT: oxycodone 5 mg tablet 5 mg PO TID PRN pain (if needed) pantoprazole 40 mg tablet,delayed release 40 mg PO BID acetaminophen 500 mg tablet (Tylenol Extra Strength) 1,000 mg (2 x 500 mg) PO Q8h (if needed) gabapentin 100 mg capsule 100 mg PO BID PRN cough levothyroxine 50 mcg capsule 50 mcg PO DAILY atorvastatin 10 mg tablet 10 mg PO DAILY Take evening before surgery fluoxetine 20 mg capsule (Prozac) 20 mg PO HS [id number]-[id number] 300 mcg-K 60 mcg-lycop 600 mcg-lutein 300 mcg tablet (Centrum Silver Men) 1 tab PO HS cholecalciferol (vitamin D3) 25 mcg (1,000 unit) capsule (Vitamin D3) 1,000 unit PO HS zinc 50 mg tablet 50 mg PO HS tamsulosin 0.4 mg capsule 0.4 mg PO HS oxycodone 5 mg tablet 5 mg PO TID PRN pain pantoprazole 40 mg tablet,delayed release 40 mg PO BID metformin 750 mg tablet,extended release 24 hr 750 mg PO BID Focus Eye Vitamins 1 tab PO BID acetaminophen 500 mg tablet (Tylenol Extra Strength) 1,000 mg (2 x 500 mg) PO Q8h (if needed) gabapentin 100 mg capsule 100 mg PO BID PRN cough pseudoephedrine HCl 120 mg tablet,extended release (Sudafed 12 Hour) 120 mg PO BID PRN nasal congestion 30 days chlorpheniramine maleate 4 mg tablet (Allergy Relief (chlorpheniramine)) 4 mg PO Q12H PRN Allergy Symptoms Other Notes If you have any questions please call us at [phone] or [phone] or [phone] or [phone]
--- NOTE | 2023-11-29 12:15 | Anesthesiology Consultation ---
Date of Service November 29, 2023 Assessment & Plan (1) Encounter for pre-operative examination: - check BSG am DOS. - Outpatient joint assessment: Patient is currently scheduled for inpatient pathway. If re-evaluated and patient/surgeon requests outpatient pathway, patient is not recommended candidate for outpatient joint program from anesthesia standpoint. Chart Review Chart Review: Acceptable Risk for Surgery and Patient seen in Pre Admission Testing Teaching & Discussion Pre-Anesthesia Teaching/Discussion Notes: Instructed NPO after midnight before surgery, except medications with 15 cc of water. Medication instructions provided according to the PAT guidelines. History Surgery Operation Date: 12/24/23 07:00 Proposed Procedures p Right Reverse Total Shoulder Arthroplasty, Open Biceps Tenodesis - Asher Ricks MD Height/Weight Height: 5 ft 9 in Weight: 101.3 kg Allergies Allergy/AdvReac Type Severity Reaction Status Date / Time No Known Allergies Allergy None Verified 11/16/23 11:27 Medications Home Medications Medication Instructions Recorded Confirmed Last Taken Focus Eye Vitamins 1 tab PO BID 10/03/18 11/16/23 04/13/20 cholecalciferol (vitamin D3) 25 1,000 unit PO HS 10/03/18 11/16/23 12/08/21 21:00 mcg (1,000 unit) capsule (Vitamin D3) glucosamine sulfate 500 mg tablet 1,000 mg PO QAM 10/03/18 11/16/23 11/25/21 09:00 (Glucosamine) pudyporq-jn-fopas 300 mcg-K 60 1 tab PO HS 10/03/18 11/16/23 12/07/21 21:00 mcg-lycop 600 mcg-lutein 300 mcg tablet (Centrum Silver Men) zinc 50 mg tablet 50 mg PO HS 04/14/20 11/16/23 12/08/21 21:00 lactobacillus combination no.4 3 3,000 mmu cells PO QAM 04/29/21 11/16/23 Unknown billion cell capsule (Probiotic) tamsulosin 0.4 mg capsule 0.4 mg PO HS #90 caps 03/10/23 11/16/23 Unknown gabapentin 100 mg capsule 100 mg PO BID PRN cough #60 caps 05/31/23 11/16/23 Unknown atorvastatin 10 mg tablet 10 mg PO DAILY #30 tabs 07/19/23 11/16/23 Unknown metformin 750 mg tablet,extended 750 mg PO BID #180 tabs 07/23/23 11/16/23 Unknown release 24 hr ipratropium bromide 21 mcg (0.03 2 spray intranasal TID PRN 08/12/23 11/16/23 Unknown %) nasal spray postnasal drip #30 mL albuterol sulfate 90 mcg/actuation 2 puff inhalation Q6 PRN Shortness 08/23/23 11/16/23 Unknown aerosol inhaler Of Breath Or Wheezing chlorpheniramine maleate 4 mg 4 mg PO Q12H PRN Allergy Symptoms 08/23/23 11/16/23 Unknown tablet (Allergy Relief (chlorpheniramine)) fluticasone propionate 50 1 spray intranasal BID PRN Nasal 08/23/23 11/16/23 Unknown mcg/actuation nasal Congestion spray,suspension (Flonase Allergy Relief) acetaminophen 500 mg tablet 1,000 mg (2 x 500 mg) PO Q8 #0 tabs 08/27/23 11/16/23 Unknown (Tylenol Extra Strength) diclofenac sodium 1 % topical gel 2 g EXT QID #0 grams 08/27/23 11/16/23 Unknown (Voltaren Arthritis Pain) levothyroxine 50 mcg capsule 50 mcg PO DAILY #90 caps 08/27/23 11/16/23 Unknown polyethylene glycol 3350 17 gram 17 g PO DAILY #14 ea 08/27/23 11/16/23 Unknown oral powder packet (Miralax) pseudoephedrine HCl 120 mg 120 mg PO BID PRN nasal congestion 08/27/23 11/16/23 Unknown tablet,extended release (Sudafed 30 days #60 tabs 12 Hour) azelastine 137 mcg (0.1 %) nasal 2 spray intranasal BID PRN nasal 09/15/23 11/16/23 Unknown spray aerosol congestion #90 mL oxycodone 5 mg tablet 5 mg PO TID PRN pain #30 tabs 10/11/23 11/16/23 Unknown pantoprazole 40 mg tablet,delayed 40 mg PO BID #180 tabs 11/08/23 11/16/23 Unknown release fluoxetine 20 mg capsule (Prozac) 20 mg PO HS #90 caps 11/25/23 Unknown Past Medical History Medical History (Updated 11/29/23 @ 12:24 by Opal Vang PA-C) BPH (benign prostatic hypertrophy) Diabetes NIDDM GERD (gastroesophageal reflux disease) controlled, stable per pt History of blood transfusion with surgery in past-cannot recall when/where/which surgery History of kidney stones No recent issues-last episode > 5 years ago History of necrotising fasciitis ~2013, buttocks region > extensive surgery to remove No issues since HTN (hypertension) controlled, stable per pt Hyperlipidemia Hypothyroidism Macular degeneration Mild persistent asthma controlled, stable per pt; last rescue inhaler use approx. 6 months ago Orthostasis taking salt tablets, following with [place] PCP Pulmonary nodule PCP monitoring per pt Subdural hematoma 2014 after fall, no surgical intervention needed, no issues since Upper airway cough syndrome chronic, stable per pt-follows with [place] pulmonology Patient denies h/o stroke, seizures, heart attack, heart failure, or blood clots/DVTs. Exercise / Class Metabolic Activity III < 4 Walking/Shop/Light housework (denies chest discomfort or shortness of breath with usual activities) Past Family History Family History Mother Family history of diabetes mellitus Breast cancer Diabetes Sister Breast cancer Brother Diabetes Other Family history non-contributory No family history of adverse response to anesthesia Denies family history of Ovarian cancer Prostate cancer Myocardial infarction Colorectal cancer Hypertension Past Surgical History Surgical History H/O eye surgery Right retinal repair History of arthroscopy of left shoulder (2019) History of colon resection hx of ileostomy--reversal done History of colonoscopy History of hernia repair (2020) [facility] History of herniorrhaphy History of open reduction and internal fixation (ORIF) procedure Right femoral nail/ORIF ankle (08/25/23): Grade view 1, MAC#3, ETT 7.5 at [facility] History of reversal of ileostomy History of surgery Perirectal abscess Hx of transurethral resection of prostate Past Anesthesia History No Hx of Anesthesia Complications and No Family Hx of Anesthesia Complications History of PONV No Hx of PONV and No Hx of Motion Sickness Social History Smoking Status: Never smoker Do You Dip or Chew Tobacco: No Hx Alcohol Use: No Hx Substance Use: No Review of Systems Patient denies chest pain, shortness of breath, dyspnea on exertion, fever, chills, wheezing, or palpitations. Physical Exam Vital Signs Vitals BP 115/74 P 77 TEMP 98.2 SP02 95% on RA RESP 18 Physical Patient resting comfortably in chair in no acute distress, alert and oriented, responding appropriately throughout visit Full cervical extension range of motion without pain TMD 3.5 finger breadths Mallampati Score 2 Dentition: permanent bridge upper sides bilat; denies chipped or loose teeth, caps/crowns, or implants Lungs: normal respiratory effort. Good air movement, clear throughout to auscultation, no adventitious breath sounds Cardiac: regular rate and rhythm, no murmurs noted Carotid arteries: negative bruit bilat Lab Results Anesthesia Preop Results Results Anesthesia Widget: WBC 10.46 K/ul (4.8-10.8) 11/29/23 Hgb 13.6 g/dl (14.0-18.0) L 11/29/23 Hct 41.6 % (42.0-52.0) L 11/29/23 Plt 367 K/uL (130-400) 11/29/23 Na 137 mmol/L (136-145) 11/29/23 K 4.4 mmol/L (3.5-5.1) 11/29/23 Cl 105 mmol/L (98-107) 11/29/23 CO2 24 mmol/L (21-32) 11/29/23 BUN 21 mg/dl (6-23) 11/29/23 Creat 0.77 mg/dl (0.6-1.4) 11/29/23 Glucose Level 114 mg/dl (70-99(Fasting)) H 11/29/23 PT 10.9 Seconds (9.0-12.0) 11/29/23 PTT 29 Seconds (21-31) 11/29/23 INR 1.0 (0.9-1.1) 11/29/23 HA1c 7.0 % (4.5-5.6) H 11/29/23 Blood Type O Positive 11/29/23 Antibody Screen NEGATIVE 11/29/23 Testing Electrocardiogram Date: 08/23/23 NSR, rate 80 bpm Low voltage QRS Chest X-Ray Date: 08/23/23 *1view* No acute cardiopulmonary findings. No change in appearance of the chest. Other Testing Chest CT 06/11/23 Stable pulmonary nodules as above. No consolidation to suggest pneumonia. Stable scarring in the bilateral lower lungs.
[~2024-02-21 11:36] MED LIST changes: -ACETAMINOPHEN 500 MG TAB PO SCH; -CeleBREX 200 MG CAP PO SCH; -FAMOTIDINE 20 MG TAB PO SCH; -LR 500ML BOLUS, THEN 15ML/HR IV SCH; -LR 60ML/HR IV SCH; -METOCLOPRAMIDE HCL 10 MG TABLET PO SCH; -ROPIVACAINE 0.5% 5 MG/ML 30 ML VIAL ONE; -TRANEXAMIC ACID 1,000 MG **IV Intra-op IV SCH; -ceFAZolin 2000MG 2,000 MG/15 ML SYR IV SCH
[2024-02-21] MEDS: LR 15ML/HR IV SCH (12:23)
[2024-02-21] MEDS: LR 60ML/HR IV SCH (12:23)
[2024-02-21] MEDS: ACETAMINOPHEN 500 MG TAB PO SCH (12:24)
[2024-02-21] MEDS ORDERED: fentaNYL citrate PF 100 MCG/2 ML VIAL ONE (13:14)
[2024-02-21] MEDS ORDERED: ONDANSETRON INJ 2 MG/ML 2 ML VIAL ONE (13:17)
[2024-02-21] MEDS ORDERED: PROPOFOL IV EMULSION 10 MG/ML 20 ML VIAL IV ONE (13:17)
[2024-02-21] MEDS ORDERED: ROCURONIUM BROMIDE 10 MG/ML 5 ML VIAL IV ONE ×2 (13:17→14:54)
[2024-02-21] MEDS ORDERED: DEXAMETHASONE SOD INJ 4 MG/ML VIAL ONE ×2 (13:17→14:54)
--- NOTE | 2024-02-21 13:28 | History & Physical Report ---
Date of Service February 21, 2024 Assessment & Plan (1) Rotator cuff arthropathy of right shoulder: Plan I visited with the patient and reviewed our plan. He wants to proceed as we have previously discussed on November 08, 2023. He feels confident for the postoperative period. He has a plan for physical therapy at home. He is agreeable to stay overnight for observation. The informed consent was reviewed, updated with an addendum, and confirmed to proceed today with a right shoulder r everse arthroplasty and biceps tenodesis. History of Present Illness Chief Complaint: Right shoulder pain Primary Care Provider: Parviz Westfall MD 83-year-old male presents today with persistent right shoulder pain attributed to rotator cuff arthropathy. He was previously scheduled in October, but he had a distal femur periprosthetic fracture and an ankle fracture that he had to get over. He had a setback with that. He has been cleared by his Dr. Martini to weight-bear and has been getting around with occasional cane use. He feels confident that he can use the cane and the sling and get through the shoulder process that we discussed over the last several months. No significant other changes to his health history. Allergies Allergy/AdvReac Type Severity Reaction Status Date / Time No Known Allergies Allergy None Verified 02/21/24 12:01 Home Medications Medication Instructions Recorded Confirmed Type Focus Eye Vitamins 1 tab PO BID 10/03/18 02/21/24 History cholecalciferol (vitamin D3) 25 1,000 unit PO HS 10/03/18 02/21/24 History mcg (1,000 unit) capsule (Vitamin D3) glucosamine sulfate 500 mg tablet 1,000 mg PO QAM 10/03/18 02/21/24 History (Glucosamine) dobrbggh-gm-vumeb 300 mcg-K 60 1 tab PO HS 10/03/18 02/21/24 History mcg-lycop 600 mcg-lutein 300 mcg tablet (Centrum Silver Men) zinc 50 mg tablet 50 mg PO HS 04/14/20 02/21/24 History lactobacillus combination no.4 3 3,000 mmu cells PO QAM 04/29/21 02/21/24 History billion cell capsule (Probiotic) tamsulosin 0.4 mg capsule 0.4 mg PO HS #90 caps 03/10/23 02/21/24 Rx metformin 750 mg tablet,extended 750 mg PO BID #180 tabs 07/23/23 02/21/24 Rx release 24 hr albuterol sulfate 90 mcg/actuation 2 puff inhalation Q6 PRN Shortness 08/23/23 02/21/24 History aerosol inhaler Of Breath Or Wheezing chlorpheniramine maleate 4 mg 4 mg PO Q12H PRN Allergy Symptoms 08/23/23 02/21/24 History tablet (Allergy Relief (chlorpheniramine)) fluticasone propionate 50 1 spray intranasal BID PRN Nasal 08/23/23 02/21/24 History mcg/actuation nasal Congestion spray,suspension (Flonase Allergy Relief) pseudoephedrine HCl 120 mg 120 mg PO BID PRN nasal congestion 08/27/23 02/21/24 Rx tablet,extended release (Sudafed 30 days #60 tabs 12 Hour) azelastine 137 mcg (0.1 %) nasal 2 spray intranasal BID PRN nasal 09/15/23 02/21/24 Rx spray congestion #90 mL pantoprazole 40 mg tablet,delayed 40 mg PO BID #180 tabs 11/08/23 02/21/24 Rx release fluoxetine 20 mg capsule (Prozac) 20 mg PO HS #90 caps 11/25/23 02/21/24 Rx ipratropium bromide 21 mcg (0.03 2 spray intranasal TID PRN 12/15/23 02/21/24 Rx %) nasal spray postnasal drip #30 mL atorvastatin 10 mg tablet 10 mg PO HS 02/04/24 02/21/24 History diclofenac sodium 1 % topical gel 2 g topical QID PRN Pain 02/04/24 02/21/24 History (Voltaren Arthritis Pain) levothyroxine 50 mcg capsule 50 mcg PO QPM 02/04/24 02/21/24 History naproxen sodium 220 mg capsule 440 mg PO BID 02/04/24 02/21/24 History (Aleve) Past Med/Surg History Problem List (Updated 02/21/24 @ 13:27 by Asher Ricks MD) Rotator cuff arthropathy of right shoulder Gait instability Complete tear of right rotator cuff Orthostasis taking salt tablets, following with [place] PCP Right shoulder injury Dysfunction of right rotator cuff Shoulder injury Fall from slipping on ice Fracture of distal end of fibula (Acute) Periprosthetic fracture of knee (Acute) Fall from standing (Acute) Chronic rhinitis Mild persistent asthma controlled, stable per pt; last rescue inhaler use approx. 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 6 months ago Diabetes NIDDM Mood disorder Gait instability uses cane Upper airway cough syndrome chronic, stable per pt-follows with [facility] pulmonology History of blood transfusion with surgery in past-cannot recall when/where/which surgery GERD (gastroesophageal reflux disease) controlled, stable per pt History of necrotising fasciitis ~2013, buttocks region > extensive surgery to remove No issues since History of kidney stones no sx. Hypothyroidism Macular degeneration Hyperlipidemia Surgical History History of open reduction and internal fixation (ORIF) procedure Right femoral nail/ORIF ankle (08/25/23): Grade view 1, MAC#3, ETT 7.5 at [facility] History of surgery Perirectal abscess History of hernia repair x2 History of reversal of ileostomy History of arthroscopy of left shoulder (2019) Hx of transurethral resection of prostate History of colonoscopy History of herniorrhaphy duplicate H/O eye surgery Right retinal repair History of colon resection hx of ileostomy--reversal done Family History Mother Family history of diabetes mellitus Breast cancer Diabetes Sister Breast cancer Brother Diabetes Other Family history non-contributory No family history of adverse response to anesthesia Denies family history of Ovarian cancer Prostate cancer Myocardial infarction Colorectal cancer Hypertension Social History Smoking Status: Never smoker Second Hand Exposure: Yes (hx in the workplace); Do You Dip or Chew Tobacco: No; Tobacco Cessation Education Requested by Patient: No Hx Alcohol Use: No Hx Substance Use: No Preferred Language: Kosovan Communication Ability: Effective Visual Impairment: Limited Hearing Ability: Use of Hearing Aid 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: No Beliefs That Will Affect Care: None marital status: Current Living Situation: Spouse current occupational status: retired How many Children do You have: 3 Other Information That Helps Us Care for You: No Feels Safe at Home: Yes Safety Concerns: Feels Safe At This Time Childhood Exposure to Second-Hand Smoke: Yes Diet: regular caffeine: Yes (coffee ) during the past year weight has: remained stable Dental Care, Regularly: Yes Physical Activity Frequency: Does not Exercise Seatbelt Use: always Sunscreen Use: No Assistive Devices: Cane and Glasses Review of Systems All systems reviewed & are unremarkable except as noted in HPI & below. Physical Exam RUE: No overlying skin compromise. DNVI. No changes to his exam. Constitutional WD/WN, vitals as above Respiratory normal respiratory effort; no respiratory distress Cardiovascular Extremities: normal capillary refill; no edema Chest (Breasts) Chest: normal inspection of chest Skin no rashes, warm and dry Psychiatric A+Ox3, euthymic affect Results & Data Results & Data Laboratory Results . Diagnostic Findings . PG Care Time/CCT Total # of Minutes Spent Total Time Spent with Patient: Total time spent is greater than 50% in coordination of care (as documented) at patient's floor/unit and/or counseling patient: Coding Level of Care Code None Diagnoses Rotator cuff arthropathy of right shoulder M12.811
[2024-02-21] MEDS: TRANEXAMIC ACID 1,000 MG **IV Pre-op IV SCH (13:35)
[2024-02-21] MEDS: ceFAZolin 2000MG 2,000 MG/15 ML SYR IV SCH ×2 (14:05→23:20)
--- NOTE | 2024-02-21 14:27 | Anesthesiology Consultation ---
Date of Service February 21, 2024 Assessment & Plan Chart Review Chart Review: Acceptable Risk for Surgery Consults Requested none ASA ASA3 Proposed Anesthesia Anesthesia Type: General Regional Laterality: Right Site: Interscalene Risk / Benefits Reviewed With: PT / POA / Parent / Guardian, Accepts Plan and Informed Consent Obtained History Surgery Operation Date: 02/21/24 13:15 Proposed Procedures p Right Reverse Total Shoulder Arthroplasty, Open Biceps Tenodesis - Asher Ricks MD Height/Weight Height: 5 ft 9 in Weight: 99.5 kg Allergies Allergy/AdvReac Type Severity Reaction Status Date / Time No Known Allergies Allergy None Verified 02/21/24 12:01 Medications Home Medications Medication Instructions Recorded Confirmed Last Taken Focus Eye Vitamins 1 tab PO BID 10/03/18 02/21/24 02/20/24 22:00 cholecalciferol (vitamin D3) 25 1,000 unit PO HS 10/03/18 02/21/24 02/20/24 22:00 mcg (1,000 unit) capsule (Vitamin D3) glucosamine sulfate 500 mg tablet 1,000 mg PO QAM 10/03/18 02/21/24 02/18/24 (Glucosamine) iuintghe-we-hekfx 300 mcg-K 60 1 tab PO HS 10/03/18 02/21/24 02/20/24 22:00 mcg-lycop 600 mcg-lutein 300 mcg tablet (Centrum Silver Men) zinc 50 mg tablet 50 mg PO HS 04/14/20 02/21/24 02/20/24 22:00 lactobacillus combination no.4 3 3,000 mmu cells PO QAM 04/29/21 02/21/24 02/20/24 08:00 billion cell capsule (Probiotic) tamsulosin 0.4 mg capsule 0.4 mg PO HS #90 caps 03/10/23 02/21/24 02/20/24 22:00 metformin 750 mg tablet,extended 750 mg PO BID #180 tabs 07/23/23 02/21/24 02/20/24 22:00 release 24 hr albuterol sulfate 90 mcg/actuation 2 puff inhalation Q6 PRN Shortness 08/23/23 02/21/24 12/14/23 aerosol inhaler Of Breath Or Wheezing chlorpheniramine maleate 4 mg 4 mg PO Q12H PRN Allergy Symptoms 08/23/2312/14/23 tablet (Allergy Relief (chlorpheniramine)) fluticasone propionate 50 1 spray intranasal BID PRN Nasal 08/23/23 02/21/24 01/14/24 mcg/actuation nasal Congestion spray,suspension (Flonase Allergy Relief) pseudoephedrine HCl 120 mg 120 mg PO BID PRN nasal congestion 08/27/23 02/21/24 02/20/24 22:00 tablet,extended release (Sudafed 30 days #60 tabs 12 Hour) azelastine 137 mcg (0.1 %) nasal 2 spray intranasal BID PRN nasal 09/15/23 02/21/24 12/14/23 spray congestion #90 mL pantoprazole 40 mg tablet,delayed 40 mg PO BID #180 tabs 11/08/23 02/21/24 02/20/24 22:00 release fluoxetine 20 mg capsule (Prozac) 20 mg PO HS #90 caps 11/25/23 02/21/24 02/20/24 22:00 ipratropium bromide 21 mcg (0.03 2 spray intranasal TID PRN 12/15/23 02/21/24 12/14/23 %) nasal spray postnasal drip #30 mL atorvastatin 10 mg tablet 10 mg PO HS 02/04/24 02/21/24 02/20/24 22:00 diclofenac sodium 1 % topical gel 2 g topical QID PRN Pain 02/04/24 02/21/24 01/22/24 (Voltaren Arthritis Pain) levothyroxine 50 mcg capsule 50 mcg PO QPM 02/04/24 02/21/24 02/20/24 22:00 naproxen sodium 220 mg capsule 440 mg PO BID 02/04/24 02/21/24 02/18/24 (Aleve) Active Medications Generic Name Dose Route Start Last Admin Trade Name Freq PRN Reason Stop Dose Admin Acetaminophen 1,000 mg 02/21/24 06:00 02/21/24 12:24 Acetaminophen 500 Mg Tab PO 02/21/24 18:00 1,000 mg PREOP JESUS Administration Lactated Ringer's 1,000 mls @ 15 mls/hr 02/21/24 06:00 02/21/24 14:09 Lr IV 02/22/24 05:59 Infused .Q24H JESUS Infusion Lactated Ringer's 1,000 mls @ 60 mls/hr 02/21/24 06:00 02/21/24 12:23 Lr IV 02/21/24 22:39 Not Given .[id number] JESUS Tranexamic Acid 1,000 mg in 100 mls @ 600 mls/hr 02/21/24 06:00 02/21/24 13:35 Tranexamic Acid / 0.7% Nacl IV 02/21/24 18:00 600 mls/hr TODAY@0600 JESUS Administration NPO Date Last Intake of Fluids: 02/20/24 Time Last Intake of Fluids: 22:00 Last Intake of Fluids Comment: 0800 sip water for med Date Last Intake of Solids: 02/20/24 Time Last Intake of Solids: 18:00 Past Medical History Medical History Subdural hematoma 2014 after fall, no surgical intervention needed, no issues since Mild persistent asthma controlled, stable per pt; last rescue inhaler use approx. 6 months ago Diabetes NIDDM Mood disorder Gait instability uses cane Upper airway cough syndrome chronic, stable per pt-follows with [facility] History of blood transfusion with surgery in past-cannot recall when/where/which surgery GERD (gastroesophageal reflux disease) controlled, stable per pt History of necrotising fasciitis ~2013, buttocks region > extensive surgery to remove No issues since History of kidney stones no sx. Hypothyroidism Macular degeneration Hyperlipidemia Exercise / Class Metabolic Activity II 4-5 Yardwork/Stairs/Walk up hill Past Family History Family History Mother Family history of diabetes mellitus Breast cancer Diabetes Sister Breast cancer Brother Diabetes Other Family history non-contributory No family history of adverse response to anesthesia Denies family history of Ovarian cancer Prostate cancer Myocardial infarction Colorectal cancer Hypertension Past Surgical History Surgical History History of open reduction and internal fixation (ORIF) procedure Right femoral nail/ORIF ankle (08/25/23): Grade view 1, MAC#3, ETT 7.5 at [facility] History of surgery Perirectal abscess History of hernia repair x2 History of reversal of ileostomy History of arthroscopy of left shoulder (2019) Hx of transurethral resection of prostate History of colonoscopy History of herniorrhaphy duplicate H/O eye surgery Right retinal repair History of colon resection hx of ileostomy--reversal done Past Anesthesia History No Hx of Anesthesia Complications and No Family Hx of Anesthesia Complications History of PONV No Hx of PONV Social History Smoking Status: Never smoker Do You Dip or Chew Tobacco: No Hx Alcohol Use: No Hx Substance Use: No substance use type: does not use Physical Exam Vital Signs Last Vital Signs Temp 36.6 C 02/21/24 12:10 Pulse 96 H 02/21/24 12:10 Resp 18 02/21/24 12:10 BP 135/91 02/21/24 12:10 Pulse Ox 97 02/21/24 12:10 O2 Del Method Room Air 02/21/24 12:10 Constitutional no acute distress ENMT Thyromental Distance: > or= 3.5 Finger Breadths Mallampati Class: II Neck normal visual inspection Respiratory normal respiratory effort; no respiratory distress Auscultation: lungs clear to auscultation bilaterally Cardiovascular Rate/Rhythm: regular rate and regular rhythm Heart Sounds: no murmur Psychiatric Orientation: alert and oriented x 3 Testing Laboratory Results 02/21/24 12:01 POC Glucose 134 H
[2024-02-21] MEDS ORDERED: ePHEDrine sulfate 50 MG/ML AMP ONE (15:04)
[2024-02-21] MEDS: TRANEXAMIC ACID 1,000 MG **IV Intra-op IV SCH (15:51)
[2024-02-21] MEDS ORDERED: SUGAMMADEX SODIUM 200 MG/2 ML VIAL IV ONE (16:36)
[2024-02-21] MEDS ORDERED: PHENYLEPHRINE HCL 10 MG/ML VIAL ONE (16:39)
[2024-02-21] MEDS ORDERED: PHENYLEPHRINE 100MCG/ML 10ML SYR IV ONE (16:39)
[2024-02-21] MEDS: VANCOMYCIN HCL 1000MG/20ML VIAL ONE (16:55)
[2024-02-21] MEDS ORDERED: diphenhydrAMINE 50 MG/ML VIAL IV PRN (17:26)
[2024-02-21] MEDS ORDERED: HYDROmorphone INJ 0.5 MG/0.5 ML SYR IV PRN (17:26)
[2024-02-21] MEDS ORDERED: bisacodyL 10 MG SUPP PR PRN (17:26)
[2024-02-21] MEDS ORDERED: MAGNESIUM HYDROXIDE SUSP 30 ML UDC PO PRN (17:26)
[2024-02-21] MEDS ORDERED: METOCLOPRAMIDE HCL INJ 5 MG/ML 2 ML VIAL IV PRN (17:26)
[2024-02-21] MEDS ORDERED: NALOXONE HCL 0.4 MG/1 ML VIAL/CARP IV PRN (17:26)
[2024-02-21] MEDS ORDERED: PHARMACY GLYCEMIC MGMT CONSULT PRN (17:26)
[2024-02-21] MEDS ORDERED: ONDANSETRON INJ 2 MG/ML 2 ML VIAL IV PRN ×2 (17:26→17:34)
--- NOTE | 2024-02-21 17:29 | Operative Report ---
[facility] Post Operative Report Pre & Post Diagnosis Operation Date: 02/21/24 13:15 Pre-Op Diagnosis: Rotator cuff arthropathy of right shoulder, proximal biceps tendonitis Post-Op Diagnosis: Rotator cuff arthropathy of right shoulder, proximal biceps tendonitis I identified the patient and participated in the time-out.: Yes Procedure Operation Date: 02/21/24 13:15 Actual Procedures p Right Reverse Total Shoulder Arthroplasty, Open Biceps Tenodesis(Right) - Asher Ricks MD Surgeon Asher Ricks MD Regrind Mill Operator Maru Hernandez PA-C Estimated Blood Loss 150 Findings See Below [employer] comprehensive reverse shoulder arthroplasty was performed: Stem17 mm micro, baseplatelarge augmented superior, [id number] mm standard, humeral tray 40 mm standard +0 offset], poly36 mm standard, central screw 6.5 mm x 35 mm, all locking peripheral screws 4.75 x 15 mm, 4.75 x 20 mm, 4.75 x 30 mm, and 4.75 x 30 mm The proximal bicep tendon had significant tenosynovitis and tendinopathy change, treated with open biceps tenodesis, using ae #2 FiberWire attaching to the underside of the pectoralis major tendon. EXAMINATION UNDER ANESTHESIA: Preoperative exam under anesthesia revealed the followin degrees of forward flexion, 60 degrees external rotation at the side, 120 degrees of abduction, 60 degrees of external rotation and 10 degrees of internal rotation with the arm abducted. Postoperatively, range of motion parameters after implantation of prosthesis revealed a stable prosthesis with range of motion parameters as follows: 130 of forward flexion, 60 of external rotation at the side, 120 of abduction, 90 of external rotation with the arm abducted, 20 of internal rotation with the arm abducted. The patient's safe range of motion included the ability to get to the back of her head. Internal rotation to the belly without significant tension. Specimens Humeral head for pathology Drains none Anesthesia Type General Regional Complications none Disposition Accompanied Patient To Recovery: No Disposition: Recovery Room Indications 83-year-old male with longstanding and progressive right shoulder pain c onsistent with right shoulder rotator cuff arthropathy. He was indicated back in November 2023 for reverse shoulder arthroplasty to address his pain and shoulder dysfunction. Surgery was delayed for several months because of fractures of the lower extremities. He presented today with the intention to proceed with treating his shoulder pain and dysfunction. Reviewed the risk, benefits and alternatives to reverse shoulder arthroplasty. He wanted to proceed. An addendum to update his consent form was completed today. He had no major changes to his health history. Description of Procedure The patient was identified in the preoperative holding area. The operative extremity was marked. Regional block was administered by Anesthesia. The patient was then brought to the operating room and placed supine. Preliminary time-out procedure was performed. All were in agreement. General endotracheal anesthesia was induced without any issues. The patient was sat up in around 40-45 degrees of inclination in the beachchair position. Exam under anesthesia was performed confirming the above findings. Preoperative antibiotics were administered. Sequential compressive devices were placed on her bilateral lower extremities for DVT prophylaxis. Bony prominences were inspected, well-padded and free of any evidence for peripheral nerve comp ression. The operative upper extremity was then prepped and draped in a normal standard fashion, with use of a padded Covarrubias stand. Prior to incision, a second time-out procedure was performed confirming the patient, site, laterality and the procedure. All were in agreement. 1. Right reverse total shoulder replacement with augmented glenoid baseplate with patient specific guide: A deltopectoral incision was utilized. Incision was carried out sharply and with electrocautery through the skin and subcutaneous tissues. The deltopectoral interval was developed. The cephalic vein was taken laterally. Subdeltoid space was developed bluntly. A deltoid brown retractor was placed to retract the deltoid laterally and superiorly. 1 cm of the superior border of the pectoralis major tendon insertion site was released in standard fashion to improve exposure. Clavipectoral fascia was removed with electrocautery. Extensive subacromial bursitis was encountered and this was completely removed with a Bovie. The lateral aspect of the conjoined tendon was then followed to its insertion site on the coracoid. The conjoined tendon was retracted medially. The biceps tendon was identified, enlarged consistent with tendinopathy. It was released from the sheath using a Bovie and followed up into the rotator interval. A tenodesis was performed to the pectoralis major tendon as will be discussed in further detail below. A sharp Hohmann retractor was then placed into the interval and into the joint. Subscapularis tendon was still present and attached on the lesser tuberosity. The articular surface of the humeral head could be appreciated. The subscapularis tendon was then tagged with #5 Ti-Cron sutures to gain control. The capsule with the subscapularis tendon was then released up the inferior humeral neck as one layer. The humeral head dislocated with successive extension and external rotation. Visualization of the humeral head revealed significant osteoarthritis and wear. The supraspinatus was absent. The greater tuberosity footprint was bare. The top of the humeral head was identified. A starting awl was used sound the humeral canal. The bone quality was moderate. Based on anatomy and preoperative planning, we opted to set the retroversion of the humeral cut at around 35 degrees of retroversion to match [place] retroversion. The humeral head resection was then made in parallel fashion to the guide. Sequential reaming was carried out up to a size 17 as the maximal stem size. Successive trial broaches were then broached up to a size 17, which gave us excellent press-fit. The trial stem was left in place. A protective cover was stepped in place We then proceeded over to glenoid. An anterior glenoid neck retractor was placed. The MGHL and SGHL were released off of the muscular portion of the subscapularis being mindful of palpating and identifying the axillary nerve to make sure it was free of injury during releases. Next, the interval between the IGHL and the muscular portions of the subscapularis was identified. My finger was on the axillary nerve to protect it during releases. The IGHL was then released up to around the 7 o'clock position. A blunt retractor was then placed to retract the humerus posteriorly. A sharp Hohmann retractor was placed at the 12 o'clock position. The glenoid deformity was evaluated with assistance with the bone model. Extraneous capsulolabral tissue was dissected to reveal the bone anatomy. This confirmed our decision to proceed with preoperative virtual planning. The arm was placed around 30 degrees of flexion, 90 degrees of external rotation and 30 degrees of abduction to distract the humerus posteriorly. Labrum was circumferentially removed including the biceps tendon stump with a Bovie. A patient specific guide was used to place an initial guide pin, followed by the more superior pin. The patient specific guide was then removed. The custom reamer guide was placed on the superior pin and the reamer was brought down the central pin. Reaming was conducted based on the guide. Irrigation was used and we confirmed adequate reaming. The base protector was then fastened with a screw to protect the surface from the augment reamer. The augment reamer sufficiently removed the cartilage surface. Copious irrigation was performed to irrigate out the joint. The planned glenoid baseplate and central threaded screw was then placed. Four peripheral locking screws were placed. The final construct appeared to be extremely strong as the entire glenoid and scapula moved together as one unit confirming excellent fixation of the baseplate. Next, trial glenosphere (+3 lateralized) was set in place. Humerus was then brought back into view with external rotation, deltoid brown retractor and multiple blunt Homans. A trial tray was then placed that would best accommodate the anatomy. The reduction was extremely tight, so I opted to revert back to a standard glenosphere without lateralization. The glenoid was exposed once again to remove the trial. The 36 standard (B inferior offset) was confirmed, opened, and set for offset on the back table. The glenosphere was then seated into the baseplate and impacted onto the gregorio taper. A prakash was used to test fixation, before resetting with additional malleting. The joint was then copiously irrigated. The humerus was exposed once again. The trial tray with standard offset was set. The humerus was then reduced onto the glenoid with the arm in abduction and external rotation. The arm was taken out of the kumar, taken through a physiologic range of motion. No evidence for impingement. No evidence for kick off. No shuck. Thus, the trials would be a most appropriate for stability. Next, the trial humeral component was removed. The final stem prosthesis was then brought onto the field. Final tray insert as well as the poly components were opened. The final humeral component with the tray and poly were made on the back table, matching the trial implant. Humeral canal was copiously irrigated. The final humeral component was then brought back on to the field and seated firmly into the humerus. Excellent press-fit was achieved. Thus, this completed the humeral component implantation. With the final components in place, humeral component was then reduced onto the glenosphere and final postoperative range of motion assessment was performed. Stability confirmed. This completed the open reverse total shoulder replacement with augment glenoid baseplate. 2. Open biceps tenodesis: As dictated above, enlargement of the biceps tendon was noted consistent with tendinopathy. A tenodesis was opted. The tendon was released from the bicipital sheath using a Bovie and then tenodesed to the pectoralis major tendon using a #2 FiberWire suture in [id number] fashion. The tendon was then followed up as proximal as could be visualized and then tenotomized. Remaining stump was removed just proximal to the tenodesis site. This completed the open biceps tenodesis. The wound was copiously irrigated. The deltopectoral incision was closed with continuous #1 Vicryl suture. Subcutaneous adipose tissue was approximated using 0 Vicryl suture. The dermis was closed with 2-0 Vicryl suture in buried interrupted fashion. The skin was closed with gordon. The wound was dressed with xeroform, gauze, and ABDs, contained by ingrid. The patient was placed in a standard sling and turned over to the anesthesia team. The patient tolerated procedure well, was extubated in the operating room without complication, and transferred to the PACU in stable condition. DISPOSITION: The patient will remain in sling for a total of 4 weeks. Hand, wrist, and elbow range of motion exercises may be initiated. Formal therapy will be initiated starting with gentle active assisted range of motion. No strengthening will be permitted before 12 weeks. Physician diver assistant attestation: Maru Hernandez PA-C was present and scrubbed for the duration of the case. Skilled assistance was essential to prepping/draping, patient positioning, retraction, and wound closure. I attest to the content of the Intraoperative Record and any orders documented therein. Any exceptions are noted below.
[2024-02-21] MEDS ORDERED: ePHEDrine sulfate 50 MG/ML AMP IV PRN (17:34)
[2024-02-21] MEDS ORDERED: fentaNYL citrate PF 100 MCG/2 ML VIAL IV PRN (17:34)
[2024-02-21] MEDS ORDERED: ATROPINE SULFATE 0.1 MG/ML 10ML SYR IV PRN (17:34)
--- NOTE | 2024-02-21 17:35 | Anesthesiology Progress Note ---
Date of Service February 21, 2024 Anesthesia Post Procedure Vital Signs Vital Signs: Temp Pulse Resp BP Pulse Ox O2 Del Method 02/21/24 12:10 36.6 C 96 H 18 135/91 97 Room Air Transfer of Care Handoff Completed per policy Notes Mental Status: alert / awake / arousable and participated in evaluation Patient Amnestic to Procedure: Yes Nausea / Vomiting: adequately controlled Pain: adequately controlled Airway Patency, RR, SpO2: stable & adequate BP & HR: stable & adequate Hydration State: stable & adequate Anesthetic Complications: no major complications apparent and Pt Satisfied with anesthetic care
[2024-02-21] MEDS: VANCOMYCIN HCL 1,000 MG in SODIUM CHLORIDE 0.9% 250 ML TOP ONE (17:40)
--- NOTE | 2024-02-21 18:03 | XRay Report ---
XR shoulder RT min 2V routine HISTORY: 83 years-old Male Post shoulder surgery right shoulder arthroplasty COMPARISON: CT 11/14/2002 4 TECHNIQUE: 2 views of the right shoulder FINDINGS: Reverse right shoulder arthroplasty demonstrates satisfactory alignment. No acute fracture or unexpec sean opaque foreign body. Overlying skin gordon with expected postoperative soft tissue swelling and deep tissue air. Severe osteoarthritis of the AC joint redemonstrated. IMPRESSION: Reverse right shoulder arthroplasty with expected postoperative changes. ACT 112: Negative or not required by law. The above report was generated using voice recognition software. It may contain grammatical, syntax o r spelling errors. Electronically signed by: Tre Madrid M.D. 02/21/2024 6:02 PM
[2024-02-21] MEDS ORDERED: PSEUDOEPHEDRINE HCL 30 MG TAB PO PRN (18:25)
[2024-02-21] MEDS ORDERED: ALBUTEROL HFA 8 GM INHALER INH PRN (18:25)
[2024-02-21] MEDS ORDERED: AZELASTINE HCL 0.1% NASAL 200 SPRAYS/27,400 MCG BTL NAE PRN (18:25)
[2024-02-21 18:29] VITALS: RESP 18
[2024-02-21] MEDS: SODIUM CHLORIDE 0.9% 1,000 ML IV SCH (18:32)
[2024-02-21] MEDS ORDERED: IPRATROPIUM BROMIDE NASAL SPRAY 0.06% 15ML NAE PRN (18:35)
[2024-02-21] MEDS ORDERED: GLUCAGON FOR INJ 1 MG VIAL IM PRN (18:45)
[2024-02-21] MEDS ORDERED: GLUCOSE 10 TAB/TUBE PO PRN (18:45)
[2024-02-21] MEDS ORDERED: DEXTROSE 50% 50 ML SYRINGE IV PRN (18:45)
[2024-02-21] MEDS ORDERED: GLUCOSE 40% GEL 15 GM TUBE PO PRN (18:45)
[2024-02-21] MEDS ORDERED: CARBOHYDRATES FOR HYPOGLYCEMIA PO PRN (18:45)
[2024-02-21] MEDS: INSULIN ASPART PER UNIT CHARGE SC SCH (19:34)
[2024-02-21] MEDS: ATORVASTATIN 10 MG TAB PO SCH (20:11)
[2024-02-21] MEDS: TAMSULOSIN HCL 0.4 MG CAP PO SCH (20:11)
[2024-02-21] MEDS: SENNA 8.6 MG TAB PO SCH (20:11)
[2024-02-21] MEDS: PANTOprazole 40 MG TAB PO SCH (20:11)
[2024-02-21] MEDS: FLUoxetine HCL 20 MG CAP PO SCH (20:11)
[2024-02-21] MEDS: DOCUSATE SODIUM 100 MG CAP PO SCH (20:11)
[2024-02-21] MEDS: CHOLECALCIFEROL 25 MCG (1000 UNITS) TAB PO SCH (20:11)
[2024-02-21] MEDS: ZINC SULFATE 220 MG CAPSULE PO SCH (20:11)
[2024-02-21] MEDS ORDERED: NON-FORMULARY MEDICATION (Metformin 750 mg tablet extended release 24 hr) PO SCH (21:00)
[2024-02-21] MEDS ORDERED: NON-FORMULARY MEDICATION (Mv-Min-Folic-K1-Lycopen-Lutein [Centrum Silver Men] 300-600-300 PO SCH (21:00)
[2024-02-21] MEDS ORDERED: NON-FORMULARY MEDICATION (Naproxen Sodium [Aleve] 220 mg Capsule) PO SCH (21:00)
[2024-02-21] MEDS ORDERED: [UNRECOGNIZED DRUG - OTHER] PO SCH (21:00)
--- OUTSIDE RECORDS SUMMARY | 2024-02-21 21:37 | External Medical Summary | Summary of Care ---
Author Name Unknown Organization [facility] Address [address] [place] [address] Phone [phone] Care Team Providers Care Manager Desktop Name Role Phone Parviz Westfall MD Primary Care Provide r Reason for Referral * Evaluate & Treat - Unlimited Visits (Within 10 days (routine)) - Pending Review Specialty Diagnoses / Procedures Referred By Juanita sheets Referred To Contact Otolaryngology Diagnoses Chronic cough Esophageal reflux Parviz Oropeza MD [address] [facility] [place] [address] [place] [id number] Referral ID Status Reason Start Date Expiration Date Visits Requested Visits Authorized [id number] Pending Review Specialty Services Required 01/31/[phone] Question Answer Referral Priority Within 10 days (routine) Where should this appointment be scheduled? Nu Reason for Referral Throat Conditions Specific Condition: Chronic cough Comments Notes scanned into Epic 01/31/24 crb Encounter Details Date Type Department Care Team (Late st Contact Info) Description 01/31/2024 Orders Only Access [place], [place] [address] [address] [facility] *DO NOT REMOVE THIS DEPARTMENT* [place] [id number] Request, External Referral Chronic cough*; Esophageal reflux Allergies No known active allergiesdocumented as of this encounter (statuses as of 01/31/2024) Medications Medication Sig Dispensed Refills Start Date End Date Status atorvaSTATin (LIPITOR) 10 MG Tablet Take 10 mg by mouth at bedtime. 3 06/18/2016 Active FLUoxetine (PROZAC) 20 MG Capsule Take 20 mg by mouth daily. 3 07/14/2016 Active levothyroxine (LEVOXYL) 50 MCG Tablet Take 50 mcg by mouth daily. 5 07/09/2016 Active metFORMIN HCl 500 MG Oral Tablet (Glucophage) Take 500 mg by mouth 2 times a day with morning and evening meals. Active Aspirin 81 MG Oral Tablet Delayed Release Take 81 mg by mouth daily. Active Naproxen Sodium 220 MG Oral Capsule (Aleve) Take 220 mg by mouth 4 times a day. Active Zinc 50 MG Oral Capsule Take 50 mg by mouth daily. Active Total Memory & Focus Formula Oral Tablet Take by mouth. A ctive Glucosamine 1500 Complex Oral Capsule Take 1 Capsule by mouth 2 times a day. Active Vitamin D 125 MCG (5000 UT) Oral Capsule Take by mouth. Active Probiotic Acidophilus BioBeads Oral Capsule Take 1 Capsule by mouth three times a day with meals. Active Tamsulosin HCl 0.4 MG Oral Capsule (Flomax) Take 1 Capsule by mouth at bedtime. 07/15/2022 Active Pantoprazole Sodium 40 MG Oral Tablet Delayed Release (Protonix) Take 1 Tablet by mouth in the morning. 02/03/2022 Active documented as of this encounter (statuses as of 01/31/2024) Active Problems Problem Noted Date Diagnosed Date Serologic abnormality 07/21/2016 BPH (benign prostatic hyperplasia) Knee osteoarthritis DDD (degenerative disc disease), lumbar Hypothyroid Retinal disease, right Overview: poor vision right eye Neuropathy Overview: right leg Iritis Overview: both eyes documented as of this encounter (statuses as of 01/31/2024) Immunizations Name Administration Dates Next Due Seasonal Influenza, Split, IIV3, With Preserve, Inj 07/03/2016 documented as of this encounter Social History Tobacco Use Types Packs/Day Years Used Date Smoking Tobacco: Never Alcohol Use Standard Drinks/Week Comments No 0 (1 standard drink = 0.6 oz pur e alcohol) Utilities Answer Date Recorded Do you have trouble paying y our heating, water, or electric bill? (Adult - for ages 18 years and over) Not on file 01/18/2024 Is your family able to pay t he heat, water, or electric bill? (Household - for ages 0-17 years) Not on file 01/18/2024 Does your family have access to good internet? (Household - for ages 0-17 years) Not on file 01/18/2024 Social Connections Answer Date Recorded How often do you feel lonely or isolated from those around you? (Adult - for ages 18 years and over) Not on file 01/18/2024 Sex and Gender Information Value Date Recorded Sex Assigned at Male 12/09/2023 3:57 PM EDT Gender Identity Male 12/09/2023 3:57 PM EDT Sexual Orientation Straight 12/09/2023 3: 57 PM EDT Job Start Date Occupation Industry Not on file Not on file Not on file documented as of this encounter Plan of Treatment Scheduled Referrals Name Type Priority Associated Diagnoses Order Schedule ADULT/PEDS OTOLARYNGOLOGY REFERRAL OP Referral Within 10 days (routine) Chronic cough Esophageal reflux Ordered: 01/31/2024 Health Maintenance Due Date Last Done Comments Depression Screening 1952 TSH 1956 DTaP,Tdap,and Td Vaccines (1 - Tdap) 1959 COVID-19 Vaccine (24 season) 2023 05/10/2022, 07/02/2021, 05/15/2021, Additional history exists Influenza Vaccine (FLU shot) (#1) 2024 04/29/2021, 06/14/2020, 06/19/2019, Additional history exists Pneumococcal Vaccine: 65+ Years Completed 06/22/2015, 06/02/2014, 05/22/2014 Zoster Vaccines Completed 01/13/2018, 09/28/2017 GARDASIL-HPV IMMUNIZATION SERIES Aged Out No longer eligible based on patient's age to complete this topic Hepatitis B Aged Out No longer eligi ble based on patient's age to complete this topic MENINGOCOCCAL (MENACTRA/MENVEO) Aged Out No longer eligible based on patient's age to complete this topic documented as of this encounter Medical Devices Not on filedocumented as of this encounter Visit Diagnoses Diagnosis Chronic cough- Primary Cough Esophageal reflux documented in this encounter Care Teams Manager Desktop Relationship Specialty Start Date End Date Parviz Westfall MD [address] [place], [place] [address] PCP - General Family Medicine 07/23/22 documented as of this encounter
[2024-02-22 04:02] VITALS: TEMP 98.6; O2SAT 95
[2024-02-22 06:24] LABS: Basophils # (auto) 0.02 K/uL (0.00-0.20); Basophils % (auto) 0.1 %; Hematocrit (blood only) 36.8 % (42.0-52.0); Hemoglobin 12.2 g/dl (14.0-18.0); Immature Granulocytes # (auto) 0.08 K/uL (0.01-0.20); Immature Granulocytes % (auto) 0.5 %; Lymphocytes # (auto) 1.95 K/uL (1.20-3.40); Lymphocytes % (auto) 13.4 %; Mean Corpuscular Hemoglobin 28.3 pg (25.0-34.0); Mean Corpuscular Hgb Conc 33.2 g/dL (32.0-36.0); Mean Corpuscular Volume 85.4 fL (80.0-100.0); Mean Platelet Volume 8.6 fL (9.4-12.4); Monocytes # (auto) 1.18 K/uL (0.11-0.59); Monocytes % (auto) 8.1 %; Neutrophils # (auto) 11.37 K/uL (1.40-6.50); Neutrophils % (auto) 77.9 %; Platelet Count 391 K/uL (130-400); RDW Coefficient of Variation 14.6 % (11.5-14.5); RDW Standard Deviation 45.5 fL (36.4-46.3); Red Blood Count 4.31 M/uL (4.70-6.10)
[2024-02-22 06:37] LABS: BUN Creatinine Ratio 21.3 (10-20); Calcium 8.8 mg/dl (8.6-10.3); Creatinine Clr Calc Pharmacy 78.5 ml/min; Est GFR (African American) 94.4 ml/min; Est GFR (Non-African American) 81.5 ml/min; Potassium 4.5 mmol/L (3.5-5.1)
[2024-02-22 07:23] VITALS: BP 119/70; PULSE 64
--- NOTE | 2024-02-22 07:35 | Orthopedic Progress Note ---
Date of Service February 22, 2024 Assessment & Plan (1) S/P shoulder replacement: - He is doing well today's progress check. -He is stable orthopedically for discharge once he works with PT/OT for safety training at home. -He will do outpatient physical therapy at [facility]. Everything has been sent to them. -Did discuss pain medications, as well as antibiotic sent. -Did discuss on postop day 3, that the dressing may be removed and he can shower. [place] to remain in until he sees me at his 2-week appointment. -Stable orthopedically for discharge. Will see him in 2 weeks for postop check. Encouraged to reach out with questions or concerns the meantime. Subjective Operation Date: 02/21/24 13:15 Actual Procedures p Right Reverse Total Shoulder Arthroplasty, Open Biceps Tenodesis(Right) - Asher Ricks MD Patient is postop day 1 from a right reverse total shoulder arthroplasty and open biceps tenodesis. He is resting comfortably in his hospital bed today. He states he is doing well. He has an ice pack over his right shoulder. Denies any issues with the surgical area. He states that his block is beginning to wear off and he is getting more movement in his hand and arm. States that he is comfortable. No other questions or concerns today. No fever, chills or constitutional symptoms noted by the patient. He also denies any chest pain, shortness of breath. Review of Systems All systems reviewed & are unremarkable except as noted in HPI & below. Physical Exam General: Alert and oriented. No acute stress. Right shoulder: He is resting comfortably in the sling. Limited range of motion which is expected at this point in his surgical recovery. His sensation is beginning to return in his hand and arm. He has full range of motion of his right wrist and fingers. Did not remove dressing as he is postop day 1. No saturation of the dressing. Psychiatric A+Ox3, euthymic affect Results & Data Results & Data Laboratory Results . Diagnostic Findings Did obtain x-rays last evening in the PACU. Adequate placement of right reverse total shoulder hardware. No hardware complication noted. PG Care Time/CCT Total # of Minutes Spent Total Time Spent with Patient: Total time spent is greater than 50% in coordination of care (as documented) at patient's floor/unit and/or counseling patient: Coding Level of Care Code 15173 Post Operative Follow-Up Diagnoses S/P shoulder replacement Z96.619
--- NOTE | 2024-02-22 07:37 | Discharge Summary ---
Date of Service February 22, 2024 Admission HPI Per Admitting Provider This is an 83-year-old male that I know from left shoulder arthroscopic rotator cuff repair in 2019, which went very well and he presents today with right shoulder pain and dysfunction. He was acutely injured in a fall. The fall caused an ankle fracture and a distal femur fracture around his total knee. He underwent surgical stabilization of the ankle and femur fractures in August of this year with Dr. Martini. He says it healed well. He required a significant amount of rehabilitation, but he is back home. He is weightbearing, but requires a walker for most things. He is hopeful he will be done with a walker soon and transition to a cane to his left hand. He has been struggling with right shoulder pain through this process. It has limited his ability to use a walker or crutches and rehab from this. He says his shoulder has not been right since the fall. He did have some chronic pain in that shoulder that was manageable, but this pain and dysfunction is severely limiting. He is frustrated. He wants to get back to more healthy active lifestyle which is his baseline before getting injured. His main issues are superolateral shoulder pain with any motion. It requires lifting up to the side. He cannot place and hold or push-off. His shoulder feels weak and dysfunctional. He has pain that limits his ability to sleep comfortably. It does wake him at night. He has been treated with anti-inflammatories and physical therapy since the injury. The pain has been progressive and he just feels weak and dysfunctional. He denies any numbness or tingling. He has not had any injections. He was admitted to the hospital for observation after his right reverse total shoulder arthroplasty. Admission Exam (Per Admitting) Constitutional WD/WN, vitals as above Musculoskeletal Right Shoulder: He has symmetric muscle mass and tone and posture. With forward flexion, he can only get to about 70 degrees. Abduction to about 45 degrees. He can externally rotate to 45 degrees. Negative external rotation lag. Positive drop arm. I can take him passively for a full arc of motion with significant pain above 90 degrees, but he cannot place and hold and the arm drops. Negative Hornblower's sign. He can maintain a good belly press with 5/5 strength. No lift off. He has full active range of motion of elbow, wrist, and digits and is neurovascularly intact. Specialty Data Orthopedic Please see progress check for most recent HPI and physical exam. Discharge Data Procedures Performed Operation Date: 02/21/24 13:15 Actual Procedures p Right Reverse Total Shoulder Arthroplasty, Open Biceps Tenodesis(Right) - Asher Ricks MD Hospital Course (1) S/P shoulder replacement: - He is doing well today's progress check. -He is stable orthopedically for discharge once he works with PT/OT for safety training at home. -He will do outpatient physical therapy at [facility]. Everything has been sent to them. -Did discuss pain medications, as well as antibiotic sent. -Did discuss on postop day 3, that the dressing may be removed and he can s hower. [place] to remain in until he sees me at his 2-week appointment. -Stable orthopedically for discharge. Will see him in 2 weeks for postop check. Encouraged to reach out with questions or concerns the meantime. Coding Level of Care Code None Diagnoses S/P shoulder replacement Z96.619
--- NOTE | 2024-02-22 07:56 | Pharmacy Report ---
Pharmacy Glycemic Short Note 2 - Date of Service February 22, 2024 - Glycemic Short BSG Results (Last 24 hours): 02/21/24 02/21/24 02/21/24 12:01 17:25 19:03 Glucose POC Glucose 134 H 165 H 177 H 02/21/24 02/22/24 02/22/24 20:53 05:57 07:15 Glucose 146 H POC Glucose 237 H 134 H OUTPATIENT ANTIDIABETIC REGIMEN: * metformin ER 750mg BID * HbA1c 7% (01/26/24) ASSESSMENT: * Rodrigue is an 83 YOM admitted status post right reverse total shoulder arthroplasty with a history of type 2 diabetes mellitus. Pharmacy has been consulted to assist with glycemic management while inpatient. * Fasting BSG this AM within goal range, received 12mg IV dexamethasone yesterday preop, no basal coverage yesterday for steroids added since BSGs controlled, ok to continue without basal at this time. * Novolog initiated at a weight based stress of 2, will loosen now due to fading steroid effects. PLAN FOR INPATIENT GLYCEMIC CONTROL: * Hold outpatient oral diabetes medications * Basal insulin * hold * Bolus insulin * NovoLog per scale ACHS or Q6hrs while NPO * Goal Range: Low 110 mg/dL - High 140 mg/dL * Correction Factor: 30 mg/dL/unit * Nutritional / Prandial insulin per carb ratio of 1 unit per 10 grams CHO consumed
[2024-02-22] MEDS: MULTIVITAMIN TAB PO SCH (08:38)
[2024-02-22] MEDS: GLUCOSAMINE SULFATE 500 MG CAP PO SCH (08:38)
[2024-02-22] MEDS: ADVANCED PROBIOTIC 625 MG CAPSULE PO SCH (08:39)
[2024-02-22] MEDS: oxyCODONE HCL IR 5 MG TAB (IMMEDIATE RELEASE) PO PRN (10:28)
[2024-02-22] MEDS ORDERED: LEVOTHYROXINE SODIUM 50 MCG TABLET PO SCH (21:00)
== END 2024-02-22 11:30 | disposition home or self-care (01) ==
LOC: ASU 11:36 → 3N 11:36
DX: Z79.890 Hormone replacement therapy; E11.9 Type 2 diabetes mellitus without complications; M75.21 Bicipital tendinitis, right shoulder; E78.5 Hyperlipidemia, unspecified; K21.9 Gastro-esophageal reflux disease without esophagitis; M12.811 Other specific arthropathies, not elsewhere classified, right shoulder; Z79.899 Other long term (current) drug therapy; I10 Essential (primary) hypertension; J45.909 Unspecified asthma, uncomplicated; Z79.84 Long term (current) use of oral hypoglycemic drugs